=== PATIENT | female | born 1965 | race Asian ===

== ENCOUNTER 2017-03-01 23:06 | Emergency (ER) | payer OTHER ==
--- NOTE | 2017-03-02 02:51 | Emergency Department Report ---
HPI - General Chief Complaint: Upper Respiratory Infection Time Seen by Provider: 03/02/17 02:42 - HPI HPI: Patient here reports that she had shortness of breath today but not now. She says she was coughing yellow phlegm. Denies any fever but reports runny nose. She says she ran out of her asthma medication to include Symbicort and albuterol. She said this happened 3 days ago. She is requesting a refill of these medication. She is also complaining the left knee pain which is chronic no new injury. Pain is 10 out of 10. Denies any numbness or tingling to extremities. Denies any chest pain or difficulty breathing. Pain is achy kidney and she did not take any medication. ED Past Medical Hx - Past Medical History Previous Medical History?: Yes Hx CVA: Yes (tia's) Hx Diabetes: Yes 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) Additional medical history: Anemia, A-fib, sinus problems - Surgical History Past Surgical History?: Yes Additional Surgical History: wisdom teeth removed - Family History Family history: hypertension - Social History Smoking Status: Never Smoker Substance Use Type: None - Medications Home Medications: Home Medications Medication Instructions Recorded Confirmed Last Taken Type Aspirin [Aspirin BABY CHEW TAB] 81 mg PO DAILY 06/19/13 03/30/15 04/12/14 08:00 History Albuterol Sulfate [Proventil HFA] 1 - 2 puff IH Q4H PRN #1 hfa.aer.ad 06/12/14 03/30/15 Unknown Rx traMADol PO Q6H PRN 03/30/15 03/30/15 Unknown History Albuterol Sulfate [Albuterol 0.63% 0.63 mg IH TID PRN 20 Days 03/31/15 Unknown Rx NEBS] Doxycycline [Vibramycin CAP] 100 mg PO Q12HR #14 capsule 03/31/15 Unknown Rx Ipratropium [Atrovent NEB] 0.5 mg IH Q6HRT 20 Days 03/31/15 Unknown Rx Permethrin 5% [Acticin 5% CREAM] 1 applicatio TP ONCE #3 tube 03/31/15 Unknown Rx methylPREDNISolone [Medrol Dose 0 mg PO QAM #1 pack 03/31/15 Unknown Rx Markos] Albuterol Sulfate [Proair 90 mcg IH Q4-6H PRN #1 aer.pow.ba 03/02/17 Unknown Rx Respiclick] Budesoni/Formotero 160-4.5(Nf) 2 puff IH BID #1 inha 03/02/17 Unknown Rx [Symbicort 160-4.5 (Nf)] Cetirizine HCl [ZyrTEC] 10 mg PO QDAY #14 capsule 03/02/17 Unknown Rx Fluticasone [Flonase] 1 spray NS QDAY #1 bottle 03/02/17 Unknown Rx Ibuprofen [Motrin 600 MG tab] 600 mg PO Q8H PRN #12 tablet 03/02/17 Unknown Rx ED Review of Systems ROS: Stated complaint: SOB/MED REFILL Other details as noted in HPI Comment: All other systems reviewed and negative Constitutional: denies: chills, fever ENT: congestion, other (runny nose). denies: ear pain, throat pain, dental pain , hearing loss Respiratory: cough, shortness of breath (episodic). denies: SOB with exertion, SOB at rest, stridor, wheezing Cardiovascular: denies: chest pain, palpitations, edema, syncope Gastrointestinal: denies: abdominal pain, nausea, vomiting Musculoskeletal: arthralgia. denies: back pain, joint swelling, myalgia Skin: denies: rash Neurological: denies: headache, weakness, numbness, paresthesias, confusion, abnormal gait, vertigo Physical Exam - Physical Exam Vital Signs: Vital Signs 03/01/17 23:24 Temperature 98.4 F Pulse Rate 80 Respiratory 20 Rate Blood Pressure 114/72 O2 Sat by Pulse 100 Oximetry General: This is a 51-year-old female well-nourished well-developed in no acute distress. Physical Exam: Head: Normocephalic atraumatic Mouth: Moist, no pharyngeal exudate or erythema. Uvula is midline and oral airway is patent. No facial swelling. No peritonsillar abscesses. Nose: Nasal mucosa pale and boggy. Clear Drainage. Maxillary and frontal sinuses nontender to palpate Neck: Supple, no C-spine tenderness, no tracheal deviation. Nontender to palpate. no adenopathy Ears: Bilateral TMs congested without erythema. Bilateral EAC without any redness swelling or drainage. Abdomen: Soft, nontender to palpate in all quadrants, normal bowel sounds in all quadrant and negative CVA tenderness bilaterally. Eyes: Bilateral pupils equal and reactive to light, bilateral EOM intact. Bilateral sclera and conjunctiva without injection. Normal accommodation. Lungs: Clear to auscultate bilaterally no rhonchi wheezes or rales. Normal work of breathing. No chest wall tenderness. extremity; No CCE. +2 pulses. No neurovascular compromise. Bilateral knees without any crepitus or effusion. Nontender to palpate without any erythema or swelling. Good color, movement, temperature and sensation to all extremities. Capillary refill is less than 3 seconds. No laceration, abrasion or contusion to extremities. Joint deformity and +5/5 movement in all extremities. Patient with full range of motion to all extremities. She is able to flex and extend her knees without any difficulties. Cardiovascular: S1-S2, regular rate rhythm. No murmurs. Skin: clean Dry and intact no rash no lesions Psych: Normal mood and behavior ED Course Vital Signs 03/01/17 23:24 Temperature 98.4 F Pulse Rate 80 Respiratory 20 Rate Blood Pressure 114/72 O2 Sat by Pulse 100 Oximetry - Reevaluation(s) Reevaluation #1: 03/02/17 04:03 Patient remained stable throughout ED stay ED Medical Decision Making - Medical Decision Making ED course: Patient here complaining in of left knee pain which is chronic and new injury. She is also requesting in refill on her asthma medication. Patient lungs are clear and she has no anomaly to her left knee. Patient with arthralgia of left knee which is chronic and asthma requesting medication refill. Patient discharged home in stable condition with prescription for Motrin, Symbicort , Zyrtec, Flonase and albuterol HFA. She goes to the [facility] for primary care so I told her she needs to follow-up at [facility]. Critical care attestation.: If time is entered above; I have spent that time in minutes in the direct care of this critically ill patient, excluding procedure time. ED Disposition Clinical Impression: Encounter for medication refill, Arthralgia of left knee Allergic rhinitis due to allergen Qualifiers: Chronicity: chronic Allergic rhinitis trigger: pollen Allergic rhinitis seasonality: unspecified seasonality Qualified Code(s): J30.1 - Allergic rhinitis due to pollen Disposition: - TO HOME OR SELFCARE Is pt being admited?: No Does the pt Need Aspirin: No Condition: Stable Instructions: Arthralgia (ED), Asthma (ED), Chronic Obstructive Pulmonary Disease (ED), Knee Pain (ED), Knee Exercises (GEN), Allergic Rhinitis (ED) Additional Instructions: Please follow up with [facility] on Sunday for management of COPD/asthma and chronic knee pain Take medication as prescribed. Will need to follow-up with your primary care physician at [facility] for further refills of medication. Prescriptions: Albuterol Sulfate [Proair Respiclick] 90 mcg IH Q4-6H PRN #1 aer.pow.ba PRN Reason: cough and wheezing Budesoni/Formotero 160-4.5(Nf) [Symbicort 160-4.5 (Nf)] 2 puff IH BID #1 inha Cetirizine HCl [ZyrTEC] 10 mg PO QDAY #14 capsule Fluticasone [Flonase] 1 spray NS QDAY #1 bottle Ibuprofen [Motrin 600 MG tab] 600 mg PO Q8H PRN #12 tablet PRN Reason: Pain Referrals: PRIMARY CARE,MD [Primary Care Provider] - 3-5 Days [facility] [Other] - 3-5 Days (Please in the morning to schedule an appointment for follow-up visit chronic medical problems.) Forms: Work/School Release Form(ED)
[2017-03-02 06:26] VITALS: BP 99/69
== END 2017-03-02 06:00 | disposition home or self-care (01) ==
LOC: ED 23:06
DX: M25.562 Pain in left knee (principal); J30.1 Allergic rhinitis due to pollen; Z86.73 Personal history of transient ischemic attack (TIA), and cerebral infarction without residual deficits; J44.9 Chronic obstructive pulmonary disease, unspecified; D64.9 Anemia, unspecified; Z79.82 Long term (current) use of aspirin; Z88.0 Allergy status to penicillin; Z88.2 Allergy status to sulfonamides; Z91.018 Allergy to other foods; Z91.011 Allergy to milk products
CPT/HCPCS: 99282

== ENCOUNTER 2017-03-13 23:02 | Emergency (ER) | payer OTHER ==
[2017-03-14] MEDS ORDERED: PEPCID PO ONE (05:00)
[2017-03-14] MEDS ORDERED: BENADRYL PO ONE (05:00)
[2017-03-14] MEDS ORDERED: DECADRON IM ONE (05:00)
--- NOTE | 2017-03-14 07:16 | Emergency Department Report ---
ED Rash HPI - HPI Chief Complaint: Skin Rash Stated Complaint: RASH Duration: 4 Days Location: Neck, Chest, Back, Abdomen, Upper Extremities, Lower Extremities Suspected Cause: Unknown Rash Symptoms: Yes Itching, No Facial Swelling, No Tongue/Oral Swelling, No Breathing Difficulties, No Choking Sensation, No Wheezing/Dyspnea, No Peeling, No Blistering, No Fever, No Lightheaded, No Malaise, No Myalgias Severity: mild Other History: 51 year old female presents to ED with insect bites and pruritis x3-4 days. patient is stable,neurologically intact and in no acute distress. patient denies trouble breathing, SOB, wheezing, facial swelling. ED Review of Systems ROS: Stated complaint: RASH Other details as noted in HPI Constitutional: denies: chills, fever Eyes: denies: eye pain, eye discharge, vision change ENT: denies: ear pain, throat pain Respiratory: denies: cough, shortness of breath, wheezing Cardiovascular: denies: chest pain, palpitations Endocrine: no symptoms reported Gastrointestinal: denies: abdominal pain, nausea, diarrhea Genitourinary: denies: urgency, dysuria, discharge Musculoskeletal: denies: back pain, joint swelling, arthralgia Skin: rash, pruritus. denies: lesions Neurological: denies: headache, weakness, paresthesias Psychiatric: denies: anxiety, depression Hematological/Lymphatic: denies: easy bleeding, easy bruising ED Past Medical Hx - Past Medical History Previous Medical History?: Yes Hx CVA: Yes (tia's) Hx Diabetes: Yes 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) Additional medical history: Anemia, A-fib, sinus problems - Surgical History Past Surgical History?: Yes Additional Surgical History: wisdom teeth removed - Social History Smoking Status: Never Smoker Substance Use Type: None - Medications Home Medications: Home Medications Medication Instructions Recorded Confirmed Last Taken Type Aspirin [Aspirin BABY CHEW TAB] 81 mg PO DAILY 06/19/13 03/30/15 04/12/14 08:00 History Albuterol Sulfate [Proventil HFA] 1 - 2 puff IH Q4H PRN #1 hfa.aer.ad 06/12/14 03/30/15 Unknown Rx traMADol PO Q6H PRN 03/30/15 03/30/15 Unknown History Albuterol Sulfate [Albuterol 0.63% 0.63 mg IH TID PRN 20 Days 03/31/15 Unknown Rx NEBS] Doxycycline [Vibramycin CAP] 100 mg PO Q12HR #14 capsule 03/31/15 Unknown Rx Ipratropium [Atrovent NEB] 0.5 mg IH Q6HRT 20 Days 03/31/15 Unknown Rx Permethrin 5% [Acticin 5% CREAM] 1 applicatio TP ONCE #3 tube 03/31/15 Unknown Rx methylPREDNISolone [Medrol Dose 0 mg PO QAM #1 pack 03/31/15 Unknown Rx Markos] Albuterol Sulfate [Proair 90 mcg IH Q4-6H PRN #1 aer.pow.ba 03/02/17 Unknown Rx Respiclick] Budesoni/Formotero 160-4.5(Nf) 2 puff IH BID #1 inha 03/02/17 Unknown Rx [Symbicort 160-4.5 (Nf)] Cetirizine HCl [ZyrTEC] 10 mg PO QDAY #14 capsule 03/02/17 Unknown Rx Fluticasone [Flonase] 1 spray NS QDAY #1 bottle 03/02/17 Unknown Rx Ibuprofen [Motrin 600 MG tab] 600 mg PO Q8H PRN #12 tablet 03/02/17 Unknown Rx Hydroxyzine HCl 25 mg PO BID #14 tablet 03/14/17 Unknown Rx Triamcinolone 0.1% [Kenalog 0.1% 1 applic TP TID #1 tube 03/14/17 Unknown Rx CREAM] Rash Exam - Exam General: Vital signs noted. No distress. Alert and acting appropriately. HEENT: No Periorbital Edema, No Conjuctival Injection, No Chemosis, No Perioral Edema, No Tongue Edema, No Uvular Edema, No Compromised Airway, No Drooling Lungs: Yes Good Air Exchange (Normal Breath Sounds), No Wheezes, No Ronchi, No Stridor, No Cough, No Labored Respirations, No Retractions, No Use of Accessory Muscles, No Other Abnormal Lung Sounds Heart: Yes Regular, No Murmur Skin: Yes Urticarial Rash (generalized rash consistent with ants/mosquito bites) , No Maculopapular Rash, No Morbilliform rash, No Bulla(e), No Excoriations, No Weeping, No Tenderness, No Erythema, No Edema, No Encrustations, No Other Other: Positive: Abdomen Normal, Neurologic Normal, Musculoskeletal Normal ED Course Vital Signs 03/13/17 23:20 Temperature 97.8 F Pulse Rate 68 Respiratory 20 Rate Blood Pressure 101/60 [Right] O2 Sat by Pulse 100 Oximetry ED Medical Decision Making - Medical Decision Making 51 year old female presents to ED with rash consistent with ants or mosquito bites all over body and generalized pruritis. patient is stable,neurologically intact and in no acute distress. patient has decreased pruritis upon discharge after medications administered during ED visit. Critical care attestation.: If time is entered above; I have spent that time in minutes in the direct care of this critically ill patient, excluding procedure time. ED Disposition Clinical Impression: Contact dermatitis Qualifiers: Contact dermatitis type: unspecified Contact dermatitis trigger: unspecified trigger Qualified Code(s): L25.9 - Unspecified contact dermatitis, unspecified cause Disposition: DC-01 TO HOME OR SELFCARE Is pt being admited?: No Does the pt Need Aspirin: No Condition: Stable Instructions: Contact Dermatitis (ED) Additional Instructions: Return to ED if symptoms worsen. Prescriptions: Hydroxyzine HCl 25 mg PO BID #14 tablet Triamcinolone 0.1% [Kenalog 0.1% CREAM] 1 applic TP TID #1 tube Referrals: PRIMARY CARE, [Primary Care Provider] - 3-5 Days
[2017-03-14 07:22] VITALS: BP 109/72
== END 2017-03-14 07:21 | disposition home or self-care (01) ==
LOC: ED 23:02
DX: S80.862A Insect bite (nonvenomous), left lower leg, initial encounter (principal); S80.861A Insect bite (nonvenomous), right lower leg, initial encounter; J43.9 Emphysema, unspecified; D64.9 Anemia, unspecified; L25.8 Unspecified contact dermatitis due to other agents; Z79.82 Long term (current) use of aspirin; Z86.73 Personal history of transient ischemic attack (TIA), and cerebral infarction without residual deficits; W57.XXXA Bitten or stung by nonvenomous insect and other nonvenomous arthropods, initial encounter; Y93.89 Activity, other specified; Y99.8 Other external cause status; Y92.89 Other specified places as the place of occurrence of the external cause; Z88.0 Allergy status to penicillin; Z88.2 Allergy status to sulfonamides; Z91.018 Allergy to other foods; Z91.011 Allergy to milk products
CPT/HCPCS: 96372; 99282; J1100

== ENCOUNTER 2017-03-14 22:51 | Emergency (ER) | payer OTHER ==
--- NOTE | 2017-03-15 08:00 | Emergency Department Report ---
ED Rash HPI - HPI Chief Complaint: Skin Rash Stated Complaint: RASH ON OVER BODY Time Seen by Provider: 03/15/17 07:44 Duration: 3 Days Location: Other (face but diff rash on hands and arms) Suspected Cause: Animal, Other (a/c face rash) Rash Symptoms: No Itching, No Facial Swelling, No Tongue/Oral Swelling, No Breathing Difficulties, No Choking Sensation, No Wheezing/Dyspnea, No Peeling, No Blistering, No Fever, No Lightheaded, No Malaise, No Myalgias Severity: mild ED Review of Systems ROS: Stated complaint: RASH ON OVER BODY Other details as noted in HPI Comment: All other systems reviewed and negative Constitutional: no symptoms reported, see HPI. denies: chills Eyes: as per HPI. denies: eye pain ENT: as per HPI. denies: ear pain, throat pain Respiratory: no symptoms reported, see HPI. denies: cough, orthopnea Cardiovascular: as per HPI. denies: chest pain, palpitations, dyspnea on exertion, orthopnea Endocrine: no symptoms reported, see HPI. denies: excessive sweating, flushing Gastrointestinal: as per HPI. denies: abdominal pain, nausea, vomiting Genitourinary: as per HPI. denies: urgency, dysuria Musculoskeletal: as per HPI. denies: back pain Skin: as per HPI. denies: rash, lesions Neurological: as per HPI. denies: headache, weakness Psychiatric: as per HPI. denies: anxiety, depression Hematological/Lymphatic: as per HPI. denies: easy bleeding ED Past Medical Hx - Past Medical History Previous Medical History?: Yes Hx CVA: Yes (tia's) Hx Diabetes: Yes 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) Additional medical history: Anemia, A-fib, sinus problems - Surgical History Past Surgical History?: Yes Additional Surgical History: wisdom teeth removed - Family History Family history: no significant (ON ASA, ALBUTEROL, ATROVENT, SYMBICORT, FLONASE) - Social History Smoking Status: Never Smoker Substance Use Type: None - Medications Home Medications: Home Medications Medication Instructions Recorded Confirmed Last Taken Type Aspirin [Aspirin BABY CHEW TAB] 81 mg PO DAILY 06/19/13 03/30/15 04/12/14 08:00 History Albuterol Sulfate [Proventil HFA] 1 - 2 puff IH Q4H PRN #1 hfa.aer.ad 06/12/14 03/30/15 Unknown Rx traMADol PO Q6H PRN 03/30/15 03/30/15 Unknown History Albuterol Sulfate [Albuterol 0.63% 0.63 mg IH TID PRN 20 Days 03/31/15 Unknown Rx NEBS] Doxycycline [Vibramycin CAP] 100 mg PO Q12HR #14 capsule 03/31/15 Unknown Rx Ipratropium [Atrovent NEB] 0.5 mg IH Q6HRT 20 Days 03/31/15 Unknown Rx Permethrin 5% [Acticin 5% CREAM] 1 applicatio TP ONCE #3 tube 03/31/15 Unknown Rx methylPREDNISolone [Medrol Dose 0 mg PO QAM #1 pack 03/31/15 Unknown Rx Markos] Albuterol Sulfate [Proair 90 mcg IH Q4-6H PRN #1 aer.pow.ba 03/02/17 Unknown Rx Respiclick] Budesoni/Formotero 160-4.5(Nf) 2 puff IH BID #1 inha 03/02/17 Unknown Rx [Symbicort 160-4.5 (Nf)] Cetirizine HCl [ZyrTEC] 10 mg PO QDAY #14 capsule 03/02/17 Unknown Rx Fluticasone [Flonase] 1 spray NS QDAY #1 bottle 03/02/17 Unknown Rx Ibuprofen [Motrin 600 MG tab] 600 mg PO Q8H PRN #12 tablet 03/02/17 Unknown Rx Hydroxyzine HCl 25 mg PO BID #14 tablet 03/14/17 Unknown Rx Triamcinolone 0.1% [Kenalog 0.1% 1 applic TP TID #1 tube 03/14/17 Unknown Rx CREAM] Permethrin [Elimite] 60 gm TP ONCE #1 tube 03/15/17 Unknown Rx Rash Exam - Exam General: Vital signs noted. No distress. Alert and acting appropriately. HEENT: No Periorbital Edema, No Conjuctival Injection, No Chemosis, No Perioral Edema, No Tongue Edema, No Uvular Edema, No Compromised Airway, No Drooling Lungs: Yes Good Air Exchange, No Wheezes, No Ronchi, No Stridor, No Cough, No Labored Respirations, No Retractions, No Use of Accessory Muscles, No Other Abnormal Lung Sounds Heart: Yes Regular, No Murmur Skin: Yes Other (DRY SCALEY PATCH L CHEEK AND FOREHEAD. UNCHANGED FROM LAST VISIT PT STATES. SHE WAS UNABLE TO BUSINESS [facility] [employer]. SHE HAS NEW RASH ON B HAND TO WRIST CONSISTENT W SCABIES. SHE STAYED 1 W WITH FRIEND. THESE HAND LESIONS ITCH AND AR RED. MEDS IMPORTANCE DISCUSSED W PT. ), No Urticarial Rash, No Maculopapular Rash, No Morbilliform rash, No Bulla(e), No Excoriations, No Weeping, No Tenderness, No Erythema, No Edema, No Encrustations Other: Positive: Abdomen Normal ED Course Vital Signs 03/15/17 03/15/17 00:12 05:08 Temperature 97.5 F L 97.6 F Pulse Rate 75 57 L Respiratory 18 18 Rate Blood Pressure 105/60 111/62 O2 Sat by Pulse 99 100 Oximetry - Reevaluation(s) Reevaluation #1: 03/15/17 vss nad no fever no oral lesions non ill appearing did not get rx filled from last visit. now w new rash on hands. see exam educated on dc poc ED Medical Decision Making - Medical Decision Making vss nad no fever non toxic non adherent chronic cont derm of face new scabies of hands Critical care attestation.: If time is entered above; I have spent that time in minutes in the direct care of this critically ill patient, excluding procedure time. ED Disposition Clinical Impression: Contact dermatitis, Scabies, Pruritic rash Disposition: DC-01 TO HOME OR SELFCARE Is pt being admited?: No Does the pt Need Aspirin: No Condition: Stable Instructions: Contact Dermatitis (ED), Scabies (ED), Acute Rash (ED) Additional Instructions: GET YOUR MEDS FROM PHARMACY AND USE ON YOUR FACE INSTRUCTED NEW MED ORDERED FOR TODAY CLEAN HOME AND BELONGINGS FOLLOW UP WITH PCP OR DERM Prescriptions: Permethrin [Elimite] 60 gm TP ONCE #1 tube Referrals: PRIMARY CAREMD [Primary Care Provider] - 3-5 Days RAMON MEZA MD [Staff Physician] - 3-5 Days Time of Disposition: 07:58
[2017-03-15 08:21] VITALS: BP 116/66
== END 2017-03-15 08:19 | disposition home or self-care (01) ==
LOC: ED 22:51
DX: L25.9 Unspecified contact dermatitis, unspecified cause (principal); B86 Scabies; R21 Rash and other nonspecific skin eruption; Z79.82 Long term (current) use of aspirin; Z86.73 Personal history of transient ischemic attack (TIA), and cerebral infarction without residual deficits; J43.9 Emphysema, unspecified; D64.9 Anemia, unspecified; Z80.0 Family history of malignant neoplasm of digestive organs; Z88.2 Allergy status to sulfonamides; Z91.011 Allergy to milk products; Z91.018 Allergy to other foods
CPT/HCPCS: 99282

== ENCOUNTER 2017-03-25 00:46 | Emergency (ER) | payer OTHER ==
[2017-03-25 02:31] LABS: Urine Drugs of Abuse Note Disclamer
[2017-03-25 02:43] LABS: Bilirubin,Urine NEG (Negative); Blood,Urine NEG (Negative); Ketones,Urine NEG (Negative); Leukocyte Esterase,Urine SM (Negative); Mucus,Urine 2+ /HPF; Nitrite,Urine NEG (Negative); Urobilinogen,Urine < 2.0 mg/dL (<2.0)
[2017-03-25 02:50] LABS: Basophils % (Auto) 0.1 % (0.0-1.8); Hematocrit 34.2 % (30.3-42.9); Hemoglobin 11.4 gm/dl (10.1-14.3); Mean Corpuscular HGB Conc 33 % (30-34); Mean Corpuscular Hemoglobin 30 pg (28-32); Mean Corpuscular Volume 90 fl (79-97); Platelet Count 200 K/mm3 (140-440); Red Blood Count 3.78 M/mm3 (3.65-5.03); Red Cell Distribution Width 14.4 % (13.2-15.2); White Blood Count 5.6 K/mm3 (4.5-11.0)
[2017-03-25 03:11] LABS: Anion Gap 18 mmol/L; BUN/Creatinine Ratio 18.57; Blood Urea Nitrogen 13 mg/dL (7-17); Calcium 8.8 mg/dL (8.4-10.2); Carbon Dioxide 24 mmol/L (22-30); Chloride 101.1 mmol/L (98-107); Glucose 102 mg/dL (65-100); Potassium 3.5 mmol/L (3.6-5.0); Sodium 140 mmol/L (137-145)
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
[2017-03-25 06:52] VITALS: BP 113/65
== END 2017-03-25 07:02 | disposition home or self-care (01) ==
LOC: ED 00:46
DX: R53.1 Weakness (principal); E11.9 Type 2 diabetes mellitus without complications; J44.9 Chronic obstructive pulmonary disease, unspecified
CPT/HCPCS: 36415; 80048; 80307; 81001; 85025; 99283; G0480; 80320

== ENCOUNTER 2017-04-05 04:33 | Emergency (ER) | payer OTHER ==
[2017-04-05 04:55] VITALS: BP 108/70
[2017-04-05 05:29] LABS: Basophils % (Auto) 0.2 % (0.0-1.8); Eosinophils % (Auto) 1.3 % (0.0-4.3); Hematocrit 35.2 % (30.3-42.9); Hemoglobin 11.5 gm/dl (10.1-14.3); Mean Corpuscular HGB Conc 33 % (30-34); Mean Corpuscular Hemoglobin 30 pg (28-32); Mean Corpuscular Volume 91 fl (79-97); Platelet Count 258 K/mm3 (140-440); Red Blood Count 3.88 M/mm3 (3.65-5.03); Red Cell Distribution Width 14.3 % (13.2-15.2); White Blood Count 5.8 K/mm3 (4.5-11.0)
[2017-04-05 05:43] LABS: Anion Gap 17 mmol/L; BUN/Creatinine Ratio 21.66; Blood Urea Nitrogen 13 mg/dL (7-17); Calcium 8.7 mg/dL (8.4-10.2); Carbon Dioxide 23 mmol/L (22-30); Chloride 104.1 mmol/L (98-107); Glucose 87 mg/dL (65-100); Potassium 4.4 mmol/L (3.6-5.0); Sodium 140 mmol/L (137-145)
== END 2017-04-05 08:20 | disposition left against medical advice (07) ==
LOC: ED 04:33
DX: R06.02 Shortness of breath (principal); Z53.21 Procedure and treatment not carried out due to patient leaving prior to being seen by health care provider
CPT/HCPCS: 36415; 80048; 84703; 85025; G0480; 80320

== ENCOUNTER 2017-04-07 02:18 | Emergency (ER) | payer OTHER ==
[2017-04-07 02:56] VITALS: BP 105/63
== END 2017-04-07 04:17 | disposition left against medical advice (07) ==
LOC: ED 02:18
DX: M79.642 Pain in left hand (principal); R06.02 Shortness of breath; R06.2 Wheezing; E11.9 Type 2 diabetes mellitus without complications; D64.9 Anemia, unspecified; I48.91 Unspecified atrial fibrillation; Z86.73 Personal history of transient ischemic attack (TIA), and cerebral infarction without residual deficits; Z88.2 Allergy status to sulfonamides; Z91.018 Allergy to other foods; Z88.0 Allergy status to penicillin; Z79.82 Long term (current) use of aspirin; W19.XXXA Unspecified fall, initial encounter; Y93.89 Activity, other specified; Y99.9 Unspecified external cause status; Y92.89 Other specified places as the place of occurrence of the external cause; Z53.21 Procedure and treatment not carried out due to patient leaving prior to being seen by health care provider

== ENCOUNTER 2017-04-08 22:42 | Emergency (ER) | payer OTHER ==
[2017-04-08 23:09] VITALS: BP 102/65
--- NOTE | 2017-04-17 00:17 | ED Elopement Review ---
ED Pt Elopement review - Call Back decision Pt Call Back Decision: Pt to F/U with PMD
== END 2017-04-09 | disposition left against medical advice (07) ==
LOC: ED 22:42
DX: R07.9 Chest pain, unspecified (principal); Z53.21 Procedure and treatment not carried out due to patient leaving prior to being seen by health care provider
CPT/HCPCS: 93005; 93010

== ENCOUNTER 2017-04-10 03:40 | Emergency (ER) | payer OTHER ==
[2017-04-10 04:20] VITALS: BP 105/72
[2017-04-10 06:38] LABS: Hematocrit 33.5 % (30.3-42.9); Hemoglobin 10.6 gm/dl (10.1-14.3); Mean Corpuscular HGB Conc 32 % (30-34); Mean Corpuscular Hemoglobin 29 pg (28-32); Mean Corpuscular Volume 93 fl (79-97); Platelet Count 183 K/mm3 (140-440); Red Blood Count 3.61 M/mm3 (3.65-5.03); Red Cell Distribution Width 14.5 % (13.2-15.2); White Blood Count 5.1 K/mm3 (4.5-11.0)
[2017-04-10 06:55] LABS: Anion Gap 16 mmol/L; BUN/Creatinine Ratio 23.33; Blood Urea Nitrogen 14 mg/dL (7-17); Calcium 8.2 mg/dL (8.4-10.2); Carbon Dioxide 23 mmol/L (22-30); Chloride 108.8 mmol/L (98-107); Glucose 113 mg/dL (65-100); Potassium 3.9 mmol/L (3.6-5.0); Sodium 144 mmol/L (137-145)
[2017-04-10 06:57] LABS: Creatine Kinase 149 units/L (30-135); Creatine Kinase MB 2.3 ng/mL (0.0-4.0)
[2017-04-10 08:42] LABS: Basophils % (Manual) 0 % (0.0-1.8); Blastocytes % (Manual) 0 %; Eosinophils % (Manual) 0 % (0.0-4.3)
[2017-04-10 08:43] LABS: Anisocytosis Few; Diff Status Complete
--- NOTE | 2017-04-10 10:30 | XRay Report ---
CHEST TWO VIEWS: 04/10/17 03:40:00 CLINICAL: Difficulty breathing. COMPARISON: 04/09/15 FINDINGS: Normal heart and pulmonary vasculature. The lungs are mildly hyperexpanded and clear. The bones and soft tissues are normal. IMPRESSION: Mild pulmonary hyperinflation and otherwise normal.
== END 2017-04-10 07:30 | disposition left against medical advice (07) ==
LOC: ED 03:40
DX: R06.2 Wheezing (principal); R53.1 Weakness; Z53.21 Procedure and treatment not carried out due to patient leaving prior to being seen by health care provider
CPT/HCPCS: 36415; 71020; 80048; 82140; 82550; 82553; 82805; 83735; 83880; 84484; 84703; 85007; 85025

== ENCOUNTER 2017-04-18 23:11 | Emergency (ER) | payer OTHER ==
[2017-04-18 23:19] VITALS: BP 102/66
== END 2017-04-19 00:05 | disposition left against medical advice (07) ==
LOC: ED 23:11
DX: R06.2 Wheezing (principal); R06.02 Shortness of breath; Z53.21 Procedure and treatment not carried out due to patient leaving prior to being seen by health care provider

== ENCOUNTER 2017-04-24 00:23 | Emergency (ER) | payer OTHER ==
[2017-04-24 00:35] VITALS: BP 104/64
== END 2017-04-24 09:45 | disposition left against medical advice (07) ==
LOC: ED 00:23
DX: R53.1 Weakness (principal); Z53.21 Procedure and treatment not carried out due to patient leaving prior to being seen by health care provider

== ENCOUNTER 2017-04-30 21:07 | Emergency (ER) | payer OTHER ==
[2017-04-30 23:00] VITALS: BP 122/75
== END 2017-05-01 | disposition left against medical advice (07) ==
LOC: ED 21:07
DX: R06.02 Shortness of breath (principal); Z53.21 Procedure and treatment not carried out due to patient leaving prior to being seen by health care provider

== ENCOUNTER 2017-05-04 16:58 | Emergency (ER) | payer OTHER | END 2017-05-04 17:50 | disposition left against medical advice (07) | LOC: ED 16:58 | DX: R06.02 Shortness of breath (principal); Z53.21 Procedure and treatment not carried out due to patient leaving prior to being seen by health care provider ==

== ENCOUNTER 2017-05-11 02:07 | Emergency (ER) | payer OTHER ==
[2017-05-11 02:42] VITALS: BP 104/61
== END 2017-05-11 02:45 | disposition left against medical advice (07) ==
LOC: ED 02:07
DX: R06.02 Shortness of breath (principal); Z53.21 Procedure and treatment not carried out due to patient leaving prior to being seen by health care provider

== ENCOUNTER 2017-05-17 23:10 | Emergency (ER) | payer OTHER ==
[2017-05-17 23:33] VITALS: BP 90/55
--- NOTE | 2017-05-18 02:19 | Emergency Department Report ---
Upper Respiratory HPI - HPI Chief Complaint: Upper Respiratory Infection Stated Complaint: SOB/WHEEZING/COUGH Time Seen by Provider: 05/18/17 01:46 Duration: 5 Days URI Symptoms: Rhinorrhea: No, Sore Throat: No, Ear Pain: No, Cough: Yes, Shortness of Breath: No, Sick Contacts: No, Unable to Take Fluids: No, Urine Output Abnormal: No, Listless Behavior: No - Home Meds and Allergies Home Medications: Home Medications Medication Instructions Recorded Confirmed Last Taken Aspirin [Aspirin BABY CHEW TAB] 81 mg PO DAILY 06/19/13 03/30/15 04/12/14 08:00 traMADol PO Q6H PRN 03/30/15 03/30/15 Unknown Previous Rx's Medication Instructions Recorded Last Taken Type Albuterol Sulfate [Proventil HFA] 1 - 2 puff IH Q4H PRN #1 hfa.aer.ad 06/12/14 Unknown Rx Albuterol Sulfate [Albuterol 0.63% 0.63 mg IH TID PRN 20 Days 03/31/15 Unknown Rx NEBS] Doxycycline [Vibramycin CAP] 100 mg PO Q12HR #14 capsule 03/31/15 Unknown Rx Ipratropium [Atrovent NEB] 0.5 mg IH Q6HRT 20 Days 03/31/15 Unknown Rx Permethrin 5% [Acticin 5% CREAM] 1 applicatio TP ONCE #3 tube 03/31/15 Unknown Rx methylPREDNISolone [Medrol Dose 0 mg PO QAM #1 pack 03/31/15 Unknown Rx Markos] Cetirizine HCl [ZyrTEC] 10 mg PO QDAY #14 capsule 03/02/17 Unknown Rx Fluticasone [Flonase] 1 spray NS QDAY #1 bottle 03/02/17 Unknown Rx Hydroxyzine HCl 25 mg PO BID #14 tablet 03/14/17 Unknown Rx Triamcinolone 0.1% [Kenalog 0.1% 1 applic TP TID #1 tube 03/14/17 Unknown Rx CREAM] Permethrin [Elimite] 60 gm TP ONCE #1 tube 03/15/17 Unknown Rx Albuterol Sulfate [Proair 90 mcg IH Q4-6H PRN #1 aer.pow.ba 05/18/17 Unknown Rx Respiclick] Budesoni/Formotero 160-4.5(Nf) 2 puff IH BID #1 inha 05/18/17 Unknown Rx [Symbicort 160-4.5 (Nf)] Ibuprofen [Motrin 600 MG tab] 600 mg PO Q8H PRN #12 tablet 05/18/17 Unknown Rx Allergies/Adverse Reactions: Allergies Allergy/AdvReac Type Severity Reaction Status Date / Time milk Allergy Swelling Verified 12/31/14 07:57 Penicillins Allergy Itching Verified 12/31/14 07:57 strawberry [[place]] Allergy Rash Verified 12/31/14 07:57 Sulfa (Sulfonamide Allergy Itching Verified 12/31/14 07:57 Antibiotics) ED Review of Systems ROS: Stated complaint: SOB/WHEEZING/COUGH Other details as noted in HPI Constitutional: denies: chills, fever Eyes: denies: eye pain, eye discharge, vision change ENT: congestion, other (dental pain ) Respiratory: cough, shortness of breath, wheezing Cardiovascular: as per HPI Endocrine: no symptoms reported Gastrointestinal: denies: abdominal pain, nausea, diarrhea Genitourinary: denies: urgency, dysuria, discharge Musculoskeletal: denies: back pain, joint swelling, arthralgia Skin: denies: rash, lesions Neurological: denies: headache, weakness, paresthesias Psychiatric: denies: anxiety, depression Hematological/Lymphatic: denies: easy bleeding, easy bruising ED Past Medical Hx - Past Medical History Previous Medical History?: Yes Hx CVA: Yes (tia's) Hx Diabetes: Yes Hx Psychiatric Treatment: Yes Hx Asthma: Yes 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) Additional medical history: Anemia, A-fib, sinus problems - Surgical History Past Surgical History?: Yes Additional Surgical History: wisdom teeth removed - Social History Smoking Status: Never Smoker Substance Use Type: None - Medications Home Medications: Home Medications Medication Instructions Recorded Confirmed Last Taken Type Aspirin [Aspirin BABY CHEW TAB] 81 mg PO DAILY 06/19/13 03/30/15 04/12/14 08:00 History Albuterol Sulfate [Proventil HFA] 1 - 2 puff IH Q4H PRN #1 hfa.aer.ad 06/12/14 03/30/15 Unknown Rx traMADol PO Q6H PRN 03/30/15 03/30/15 Unknown History Albuterol Sulfate [Albuterol 0.63% 0.63 mg IH TID PRN 20 Days 03/31/15 Unknown Rx NEBS] Doxycycline [Vibramycin CAP] 100 mg PO Q12HR #14 capsule 03/31/15 Unknown Rx Ipratropium [Atrovent NEB] 0.5 mg IH Q6HRT 20 Days 03/31/15 Unknown Rx Permethrin 5% [Acticin 5% CREAM] 1 applicatio TP ONCE #3 tube 03/31/15 Unknown Rx methylPREDNISolone [Medrol Dose 0 mg PO QAM #1 pack 03/31/15 Unknown Rx Markos] Cetirizine HCl [ZyrTEC] 10 mg PO QDAY #14 capsule 03/02/17 Unknown Rx Fluticasone [Flonase] 1 spray NS QDAY #1 bottle 03/02/17 Unknown Rx Hydroxyzine HCl 25 mg PO BID #14 tablet 03/14/17 Unknown Rx Triamcinolone 0.1% [Kenalog 0.1% 1 applic TP TID #1 tube 03/14/17 Unknown Rx CREAM] Permethrin [Elimite] 60 gm TP ONCE #1 tube 03/15/17 Unknown Rx Albuterol Sulfate [Proair 90 mcg IH Q4-6H PRN #1 aer.pow.ba 05/18/17 Unknown Rx Respiclick] Budesoni/Formotero 160-4.5(Nf) 2 puff IH BID #1 inha 05/18/17 Unknown Rx [Symbicort 160-4.5 (Nf)] Ibuprofen [Motrin 600 MG tab] 600 mg PO Q8H PRN #12 tablet 05/18/17 Unknown Rx ED Bronchiolitis Physical Exam - Exam General: Vital signs noted. No distress. Alert and acting appropriately. HEENT: Yes Pharyngeal Erythema (mild ), No Conjuctival Injection, No Dry Mucous Membranes, No Rhinorrhea Ear: Neither TM Bulge, Neither TM Erythema, Neither EAC Discharge Neck: No Adenopathy, No Rigidity Lungs: Yes Clear Lung Sounds, Yes Good Air Exchange, No Wheezes, No Stridor, No Cough, No Nasal Flaring, No Retractions, No Use of Accessory Muscles Heart: Yes Regular, No Murmur Abdomen: Yes Normal Bowel Sounds, No Tenderness, No Peritoneal Signs Skin: No Rash, No Eczema Neurologic: Alert and oriented, no deficits. Musculoskeletal: Unremarkable. ED Bronchiolitis Tests - Testing Testing: CXR: Normal/Negative ED Physical Exam - General Limitations: No Limitations General appearance: alert, in no apparent distress - Head Head exam: Present: atraumatic, normocephalic - Eye Eye exam: Present: normal appearance, PERRL, EOMI Pupils: Present: normal accommodation - ENT ENT exam: Present: mucous membranes moist, TM's normal bilaterally, normal external ear exam - Expanded ENT Exam Expanded Teeth exam: Present: dental caries (#10 mild gum erythema no focal abscess ), dental tenderness # Throat exam: Positive: normal inspection - Neck Neck exam: Present: normal inspection, full ROM. Absent: tenderness, lymphadenopathy, thyromegaly - Respiratory Respiratory exam: Present: normal lung sounds bilaterally, chest wall tenderness. Absent: respiratory distress, wheezes, rales, rhonchi, stridor, accessory muscle use, decreased breath sounds, prolonged expiratory - Cardiovascular Cardiovascular Exam: Present: regular rate, normal rhythm. Absent: systolic murmur, diastolic murmur, rubs, gallop - GI/Abdominal GI/Abdominal exam: Present: soft, normal bowel sounds - Rectal Rectal exam: Present: deferred - Extremities Exam Extremities exam: Present: normal inspection, full ROM, normal capillary refill. Absent: tenderness, pedal edema, joint swelling, calf tenderness - Back Exam Back exam: Present: normal inspection, full ROM. Absent: tenderness, CVA tenderness (R), CVA tenderness (L), muscle spasm, paraspinal tenderness, vertebral tenderness, rash noted - Neurological Exam Neurological exam: Present: alert, oriented X3, normal gait, reflexes normal - Psychiatric Psychiatric exam: Present: normal affect, normal mood - Skin Skin exam: Present: warm, dry, intact, normal color. Absent: rash ED Course Vital Signs 05/17/17 23:30 Temperature 97.7 F Pulse Rate 77 Respiratory 20 Rate Blood Pressure 90/55 O2 Sat by Pulse 100 Oximetry ED Medical Decision Making - Medical Decision Making pt is a 51 y/o aaf with hx of COPD and Asthma, who presents for cough wheezing and sob x 5 days pt advises out of symbicort inhaler, pt states that she is tx[place] d at [place] facility but has been unable to get appointment pt denies cp, sob, no dizziness no lightheadedness no headache no wheezing at this time, symptoms are intermittent usuall relieved by daily symbicort inhaler, with albuteral used prn , pt has secondary complaint of dental pain @ # 10 loose and painful. pain is 4/ 10 aching intermittent exacerbated by hot and cold stimuli, pain is relieved by tramdol prn po. pt has not seen dentist as [place] [facility] is "backed up" exam: lungs clear no wheezing at thist time. pt appears well nad, no garcia pt ambulated ed from room and return with no wheezing no sob no dizziness no lightheadedness no cp, will refill medications as prescribed, nsaid for toothach,e pt will follow up with [facility] or [place] at soonest apointment for dental carries pt verbalized agreement and understanding of same. Critical care attestation.: If time is entered above; I have spent that time in minutes in the direct care of this critically ill patient, excluding procedure time. ED Disposition Clinical Impression: Dental caries, Medication refill URI (upper respiratory infection) Qualifiers: URI type: acute nasopharyngitis (common cold) Qualified Code(s): J00 - Acute nasopharyngitis [common cold] Disposition: TO HOME OR SELFCARE Is pt being admited?: No Does the pt Need Aspirin: No Condition: Good Instructions: Dental Caries (ED) Additional Instructions: Follow up with [place] doctor bakari for copd/asthma medications and management, follow up with [place] [facility] for dental carries Prescriptions: Albuterol Sulfate [Proair Respiclick] 90 mcg IH Q4-6H PRN #1 aer.pow.ba PRN Reason: cough and wheezing Budesoni/Formotero 160-4.5(Nf) [Symbicort 160-4.5 (Nf)] 2 puff IH BID #1 inha Ibuprofen [Motrin 600 MG tab] 600 mg PO Q8H PRN #12 tablet PRN Reason: Pain Referrals: [place] [facility] [Other] - 3-5 Days Forms: Work/School Release Form(ED) Time of Disposition: 02:29
--- NOTE | 2017-05-18 08:56 | XRay Report ---
XRAY CHEST TWO VIEWS: 05/17/17 23:10:00 CLINICAL: Cough and shortness of breath. COMPARISON: 04/10/17 FINDINGS: Normal heart and pulmonary vasculature. The lungs are hyperexpanded and hyperlucent. No airspace disease or pleural effusion.The bones and soft tissues are normal. IMPRESSION: COPD and no acute cardiopulmonary process.
== END 2017-05-18 03:00 | disposition home or self-care (01) ==
LOC: ED 23:10
DX: J00 Acute nasopharyngitis [common cold] (principal); K02.9 Dental caries, unspecified; J45.909 Unspecified asthma, uncomplicated; J44.9 Chronic obstructive pulmonary disease, unspecified
CPT/HCPCS: 71020

== ENCOUNTER 2017-05-25 19:06 | Emergency (ER) | payer OTHER | END 2017-05-25 20:32 | disposition left against medical advice (07) | LOC: ED 19:06 | DX: R06.02 Shortness of breath (principal); Z53.21 Procedure and treatment not carried out due to patient leaving prior to being seen by health care provider ==

== ENCOUNTER 2017-05-26 19:28 | Emergency (ER) | payer OTHER ==
[2017-05-26 19:40] VITALS: BP 93/63
== END 2017-05-26 23:05 | disposition left against medical advice (07) ==
LOC: ED 19:28
DX: R51 Headache (principal); R06.02 Shortness of breath; Z53.21 Procedure and treatment not carried out due to patient leaving prior to being seen by health care provider

== ENCOUNTER 2017-05-28 23:29 | Emergency (ER) | payer OTHER ==
[2017-05-29 11:46] VITALS: BP 93/54
== END 2017-05-29 04:39 | disposition left against medical advice (07) ==
LOC: ED 23:29
DX: M79.1 Myalgia (principal); Z53.21 Procedure and treatment not carried out due to patient leaving prior to being seen by health care provider

== ENCOUNTER → 2017-06-03 15:30 | Emergency (ER) | payer OTHER | END | disposition left against medical advice (07) | LOC: ED 15:30 | DX: K13.0 Diseases of lips (principal); Z53.21 Procedure and treatment not carried out due to patient leaving prior to being seen by health care provider ==

== ENCOUNTER 2017-06-07 02:17 | Emergency (ER) | payer OTHER ==
[2017-06-07 02:45] VITALS: BP 105/66
[2017-06-07 04:15] LABS: Hematocrit 36.8 % (30.3-42.9); Hemoglobin 12.1 gm/dl (10.1-14.3); Mean Corpuscular HGB Conc 33 % (30-34); Mean Corpuscular Hemoglobin 29 pg (28-32); Mean Corpuscular Volume 88 fl (79-97); Platelet Count 165 K/mm3 (140-440); Red Blood Count 4.18 M/mm3 (3.65-5.03); Red Cell Distribution Width 13.4 % (13.2-15.2); White Blood Count 4.1 K/mm3 (4.5-11.0)
[2017-06-07 04:28] LABS: Anion Gap 16 mmol/L; BUN/Creatinine Ratio 17; Blood Urea Nitrogen 10 mg/dL (7-17); Calcium 8.6 mg/dL (8.4-10.2); Carbon Dioxide 27 mmol/L (22-30); Chloride 104.2 mmol/L (98-107); Glucose 103 mg/dL (65-100); Potassium 3.8 mmol/L (3.6-5.0); Sodium 143 mmol/L (137-145)
[2017-06-07 05:56] LABS: Basophils % (Manual) 0 % (0.0-1.8); Blastocytes % (Manual) 0 %
[2017-06-07 05:57] LABS: Anisocytosis Few; Diff Status Complete; Ovalocytes Few
== END 2017-06-07 03:56 | disposition left against medical advice (07) ==
LOC: ED 02:17
DX: R07.9 Chest pain, unspecified (principal); Z53.21 Procedure and treatment not carried out due to patient leaving prior to being seen by health care provider
CPT/HCPCS: 36415; 80048; 84484; 85007; 85025; 93005; 93010

== ENCOUNTER 2017-06-11 01:50 | Emergency (ER) | payer OTHER ==
[2017-06-11 02:27] VITALS: BP 92/61
--- NOTE | 2017-06-11 05:25 | Emergency Department Report ---
- General Chief Complaint: Upper Respiratory Infection Stated Complaint: SORE LIPS Time Seen by Provider: 06/11/17 04:23 Source: patient Mode of arrival: Ambulatory Limitations: No Limitations - History of Present Illness Initial Comments: pt is a 51 y/o aaf with hx COPD tx with albuterol nad symbicort neb pt presents today request rx for nebulizer machine pt denies sob no wheezing no sob no garcia, pt will refill same and pt will follow up with primary care doctor at [place] tomorrow pt verbalized agreement and understanding of same - Related Data Home Medications Medication Instructions Recorded Confirmed Last Taken Aspirin [Aspirin BABY CHEW TAB] 81 mg PO DAILY 06/19/13 03/30/15 04/12/14 08:00 traMADol PO Q6H PRN 03/30/15 03/30/15 Unknown Previous Rx's Medication Instructions Recorded Last Taken Type Albuterol Sulfate [Proventil HFA] 1 - 2 puff IH Q4H PRN #1 hfa.aer.ad 06/12/14 Unknown Rx Albuterol Sulfate [Albuterol 0.63% 0.63 mg IH TID PRN 20 Days 03/31/15 Unknown Rx NEBS] Doxycycline [Vibramycin CAP] 100 mg PO Q12HR #14 capsule 03/31/15 Unknown Rx Ipratropium [Atrovent NEB] 0.5 mg IH Q6HRT 20 Days 03/31/15 Unknown Rx Permethrin 5% [Acticin 5% CREAM] 1 applicatio TP ONCE #3 tube 03/31/15 Unknown Rx methylPREDNISolone [Medrol Dose 0 mg PO QAM #1 pack 03/31/15 Unknown Rx Markos] Cetirizine HCl [ZyrTEC] 10 mg PO QDAY #14 capsule 03/02/17 Unknown Rx Fluticasone [Flonase] 1 spray NS QDAY #1 bottle 03/02/17 Unknown Rx Hydroxyzine HCl 25 mg PO BID #14 tablet 03/14/17 Unknown Rx Triamcinolone 0.1% [Kenalog 0.1% 1 applic TP TID #1 tube 03/14/17 Unknown Rx CREAM] Permethrin [Elimite] 60 gm TP ONCE #1 tube 03/15/17 Unknown Rx Albuterol Sulfate [Proair 90 mcg IH Q4-6H PRN #1 aer.pow.ba 05/18/17 Unknown Rx Respiclick] Budesoni/Formotero 160-4.5(Nf) 2 puff IH BID #1 inha 05/18/17 Unknown Rx [Symbicort 160-4.5 (Nf)] Ibuprofen Oral Liqd [Motrin Oral 600 mg PO TID PRN #1 bottle 05/18/17 Unknown Rx Liq 100 mg/5 ml] Ibuprofen [Motrin 600 MG tab] 600 mg PO Q8H PRN #12 tablet 05/18/17 Unknown Rx ALBUTEROL NEB's [Proventil 0.083% 2.5 mg IH QID PRN #25 each 06/11/17 Unknown Rx NEBS] Fluticasone [Flonase] 1 spray NS QDAY #1 bottle 06/11/17 Unknown Rx Loratadine 10 mg PO DAILY #30 tablet 06/11/17 Unknown Rx Nebulizer Accessories [Aeroneb Go] 1 each MC PRN #1 each 06/11/17 Unknown Rx Allergies Allergy/AdvReac Type Severity Reaction Status Date / Time milk Allergy Swelling Verified 12/31/14 07:57 Penicillins Allergy Itching Verified 12/31/14 07:57 strawberry [[place]] Allergy Rash Verified 12/31/14 07:57 Sulfa (Sulfonamide Allergy Itching Verified 12/31/14 07:57 Antibiotics) ED Review of Systems ROS: Stated complaint: SORE LIPS Other details as noted in HPI Constitutional: denies: chills, fever Eyes: denies: eye pain, eye discharge, vision change ENT: denies: ear pain, throat pain Respiratory: denies: cough, shortness of breath, wheezing Cardiovascular: denies: chest pain, palpitations Endocrine: no symptoms reported Gastrointestinal: denies: abdominal pain, nausea, diarrhea Genitourinary: denies: urgency, dysuria, discharge Musculoskeletal: denies: back pain, joint swelling, arthralgia Skin: denies: rash, lesions Neurological: denies: headache, weakness, paresthesias Psychiatric: denies: anxiety, depression Hematological/Lymphatic: denies: easy bleeding, easy bruising ED Past Medical Hx - Past Medical History Previous Medical History?: Yes Hx CVA: Yes (tia's) Hx Diabetes: Yes Hx Psychiatric Treatment: Yes Hx Asthma: Yes 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) Additional medical history: Anemia, A-fib, sinus problems - Surgical History Past Surgical History?: Yes Additional Surgical History: wisdom teeth removed - Social History Smoking Status: Never Smoker Substance Use Type: Alcohol - Medications Home Medications: Home Medications Medication Instructions Recorded Confirmed Last Taken Type Aspirin [Aspirin BABY CHEW TAB] 81 mg PO DAILY 06/19/13 03/30/15 04/12/14 08:00 History Albuterol Sulfate [Proventil HFA] 1 - 2 puff IH Q4H PRN #1 hfa.aer.ad 06/12/14 03/30/15 Unknown Rx traMADol PO Q6H PRN 03/30/15 03/30/15 Unknown History Albuterol Sulfate [Albuterol 0.63% 0.63 mg IH TID PRN 20 Days 03/31/15 Unknown Rx NEBS] Doxycycline [Vibramycin CAP] 100 mg PO Q12HR #14 capsule 03/31/15 Unknown Rx Ipratropium [Atrovent NEB] 0.5 mg IH Q6HRT 20 Days 03/31/15 Unknown Rx Permethrin 5% [Acticin 5% CREAM] 1 applicatio TP ONCE #3 tube 03/31/15 Unknown Rx methylPREDNISolone [Medrol Dose 0 mg PO QAM #1 pack 03/31/15 Unknown Rx Markos] Cetirizine HCl [ZyrTEC] 10 mg PO QDAY #14 capsule 03/02/17 Unknown Rx Fluticasone [Flonase] 1 spray NS QDAY #1 bottle 03/02/17 Unknown Rx Hydroxyzine HCl 25 mg PO BID #14 tablet 03/14/17 Unknown Rx Triamcinolone 0.1% [Kenalog 0.1% 1 applic TP TID #1 tube 03/14/17 Unknown Rx CREAM] Permethrin [Elimite] 60 gm TP ONCE #1 tube 03/15/17 Unknown Rx Albuterol Sulfate [Proair 90 mcg IH Q4-6H PRN #1 aer.pow.ba 05/18/17 Unknown Rx Respiclick] Budesoni/Formotero 160-4.5(Nf) 2 puff IH BID #1 inha 05/18/17 Unknown Rx [Symbicort 160-4.5 (Nf)] Ibuprofen Oral Liqd [Motrin Oral 600 mg PO TID PRN #1 bottle 05/18/17 Unknown Rx Liq 100 mg/5 ml] Ibuprofen [Motrin 600 MG tab] 600 mg PO Q8H PRN #12 tablet 05/18/17 Unknown Rx ALBUTEROL NEB's [Proventil 0.083% 2.5 mg IH QID PRN #25 each 06/11/17 Unknown Rx NEBS] Fluticasone [Flonase] 1 spray NS QDAY #1 bottle 06/11/17 Unknown Rx Loratadine 10 mg PO DAILY #30 tablet 06/11/17 Unknown Rx Nebulizer Accessories [Aeroneb Go] 1 each MC PRN #1 each 06/11/17 Unknown Rx ED Physical Exam - General Limitations: No Limitations General appearance: alert, in no apparent distress - Head Head exam: Present: atraumatic, normocephalic - Eye Eye exam: Present: normal appearance - ENT ENT exam: Present: mucous membranes moist - Neck Neck exam: Present: normal inspection - Respiratory Respiratory exam: Present: normal lung sounds bilaterally. Absent: respiratory distress, wheezes, chest wall tenderness - Cardiovascular Cardiovascular Exam: Present: regular rate, normal rhythm. Absent: systolic murmur, diastolic murmur, rubs, gallop - GI/Abdominal GI/Abdominal exam: Present: soft, normal bowel sounds - Rectal Rectal exam: Present: deferred - Extremities Exam Extremities exam: Present: normal inspection - Back Exam Back exam: Present: normal inspection - Neurological Exam Neurological exam: Present: alert, oriented X3 - Psychiatric Psychiatric exam: Present: normal affect, normal mood - Skin Skin exam: Present: warm, dry, intact, normal color. Absent: rash ED Course Vital Signs 06/11/17 02:25 Temperature 97.6 F Pulse Rate 76 Blood Pressure 92/61 O2 Sat by Pulse 99 Oximetry ED Medical Decision Making - Medical Decision Making pt is a 51 y/o aaf with hx COPD tx with albuterol nad symbicort neb pt presents today request rx for nebulizer machine pt denies sob no wheezing no sob no garcia, pt will refill same and pt will follow up with primary care doctor [place] tomorrow pt verbalized agreement and understanding of same Critical care attestation.: If time is entered above; I have spent that time in minutes in the direct care of this critically ill patient, excluding procedure time. ED Disposition Clinical Impression: Medication refill URI (upper respiratory infection) Qualifiers: URI type: acute nasopharyngitis (common cold) Qualified Code(s): J00 - Acute nasopharyngitis [common cold] Disposition: TO HOME OR SELFCARE Is pt being admited?: No Does the pt Need Aspirin: No Condition: Good Instructions: Upper Respiratory Infection in Children (ED) Prescriptions: ALBUTEROL NEB's [Proventil 0.083% NEBS] 2.5 mg IH QID PRN #25 each PRN Reason: wheezing Fluticasone [Flonase] 1 spray NS QDAY #1 bottle Loratadine 10 mg PO DAILY #30 tablet Nebulizer Accessories [Aeroneb Go] 1 each MC PRN #1 each Referrals: PRIMARY CARE,MD [Primary Care Provider] - 3-5 Days Forms: Work/School Release Form(ED) Time of Disposition: 05:30
== END 2017-06-11 05:35 | disposition home or self-care (01) ==
LOC: ED 01:50
DX: J00 Acute nasopharyngitis [common cold] (principal); Z79.82 Long term (current) use of aspirin; Z91.011 Allergy to milk products; Z88.2 Allergy status to sulfonamides; Z88.0 Allergy status to penicillin; Z86.73 Personal history of transient ischemic attack (TIA), and cerebral infarction without residual deficits; J45.909 Unspecified asthma, uncomplicated; J44.9 Chronic obstructive pulmonary disease, unspecified; E11.9 Type 2 diabetes mellitus without complications
CPT/HCPCS: 99282

== ENCOUNTER 2017-07-07 02:56 | Emergency (ER) | payer OTHER ==
[2017-07-07 03:26] VITALS: BP 114/66
== END 2017-07-07 08:55 | disposition left against medical advice (07) ==
LOC: ED 02:56
DX: Z53.21 Procedure and treatment not carried out due to patient leaving prior to being seen by health care provider (principal)

== ENCOUNTER 2017-10-24 20:47 | Emergency (ER) | payer OTHER ==
[2017-10-24] MEDS ORDERED: TYLENOL PO ONE (21:22)
[2017-10-24] MEDS ORDERED: TYLENOL ONE (21:22)
[2017-10-24 21:39] LABS: Basophils % (Auto) 0.3 % (0.0-1.8); Eosinophils # (Auto) 0.2 K/mm3 (0.0-0.4); Eosinophils % (Auto) 3.7 % (0.0-4.3); Hemoglobin 12.2 gm/dl (10.1-14.3); Lymphocytes # (Auto) 0.8 K/mm3 (1.2-5.4); Lymphocytes % (Auto) 19.4 % (13.4-35.0); Mean Corpuscular HGB Conc 32 % (30-34); Mean Corpuscular Hemoglobin 28 pg (28-32); Mean Corpuscular Volume 87 fl (79-97); Monocytes # (Auto) 0.4 K/mm3 (0.0-0.8); Monocytes % (Auto) 8.6 % (0.0-7.3); Platelet Count 172 K/mm3 (140-440); Red Blood Count 4.36 M/mm3 (3.65-5.03); Red Cell Distribution Width 13.8 % (13.2-15.2)
[2017-10-24 21:52] LABS: Bacteria,Urine 1+ /HPF (Negative); Bilirubin,Urine NEG (Negative); Blood,Urine SM (Negative); Color,Urine Yellow (Yellow); Mucus,Urine 1+ /HPF; Protein,Urine <15 mg/dL mg/dL (Negative); Urobilinogen,Urine < 2.0 mg/dL (<2.0)
[2017-10-24 22:03] LABS: BUN/Creatinine Ratio 23; Blood Urea Nitrogen 14 mg/dL (7-17); Calcium 8.6 mg/dL (8.4-10.2); Hemolysis Index 6
[2017-10-25] MEDS ORDERED: LEVAQUIN 750MG/150ML 750 MG/150 ML BAG IV ONE (02:36)
[2017-10-25] MEDS ORDERED: DUONEB *Not for PRN Use IH ONE (02:37)
[2017-10-25] MEDS ORDERED: KCL 20 MEQ in NACL 0.9% 250ML 250 ML IV ONE (03:00)
[2017-10-25] MEDS ORDERED: KCL 10MEQ/100ML 10 MEQ/100 ML BAG IV SCH (03:00)
[2017-10-25] MEDS ORDERED: NACL 0.9% 1000 ML 1,000 ML ONE (03:17)
--- NOTE | 2017-10-25 03:44 | XRay Report ---
FINAL REPORT EXAM: XR CHEST 1V AP HISTORY: cough TECHNIQUE: A portable upright view of the chest was obtained. FINDINGS: The lungs are hyperinflated. There are no acute infiltrates or congestion. Heart size is normal. There scarring in left lung base. Pleural fluid is not seen. The skeletal structures do not show any acute changes. IMPRESSION: Hyperinflation. No acute process in the chest.
--- NOTE | 2017-10-25 05:37 | Emergency Department Report ---
HPI - General Chief Complaint: Weakness Time Seen by Provider: 10/25/17 02:26 - HPI HPI: 51-year-old presents to the emergency department with multiple complaints. She says that over the past month she has been having both some numbness as well as pain to her left hand and her left foot. She has a history of COPD and asthma and says that she has been out of her inhalers, Ventolin and Symbicort, and has been having some intermittent shortness of breath and wheezing. She complains of some generalized and nonspecific weakness. She complains of some dysuria. The patient has been visiting family and traveled from [place], to [place], and finally back to [place]'s morning. She went to the [facility], where she usually gets her care and where she also works, but says that there was such a long wait she left and came here instead. She denies any chest pain , fever, swelling of the extremities. She has not taken anything for her symptoms prior to presentation. She said that she saw a physician in [place] regarding the hand and foot pain and was diagnosed with neuropathy. 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) Additional medical history: Anemia, A-fib, sinus problems - Surgical History Additional Surgical History: wisdom teeth removed - Social History Smoking Status: Never Smoker Substance Use Type: None - Medications Home Medications: Home Medications Medication Instructions Recorded Confirmed Last Taken Type Aspirin [Aspirin BABY CHEW TAB] 81 mg PO DAILY 06/19/13 03/30/15 04/12/14 08:00 History Albuterol Sulfate [Proventil HFA] 1 - 2 puff IH Q4H PRN #1 hfa.aer.ad 06/12/14 03/30/15 Unknown Rx traMADol PO Q6H PRN 03/30/15 03/30/15 Unknown History Albuterol Sulfate [Albuterol 0.63% 0.63 mg IH TID PRN 20 Days ml 03/31/15 Unknown Rx NEBS] Doxycycline [Vibramycin CAP] 100 mg PO Q12HR #14 capsule 03/31/15 Unknown Rx Ipratropium [Atrovent NEB] 0.5 mg IH Q6HRT 20 Days ml 03/31/15 Unknown Rx Permethrin 5% [Acticin 5% CREAM] 1 applicatio TP ONCE #3 tube 03/31/15 Unknown Rx methylPREDNISolone [Medrol Dose 0 mg PO QAM #1 pack 03/31/15 Unknown Rx Markos] Cetirizine HCl [ZyrTEC] 10 mg PO QDAY #14 capsule 03/02/17 Unknown Rx Fluticasone [Flonase] 1 spray NS QDAY #1 bottle 03/02/17 Unknown Rx Hydroxyzine HCl 25 mg PO BID #14 tablet 03/14/17 Unknown Rx Triamcinolone 0.1% [Kenalog 0.1% 1 applic TP TID #1 tube 03/14/17 Unknown Rx CREAM] Permethrin [Elimite] 60 gm TP ONCE #1 tube 03/15/17 Unknown Rx Albuterol Sulfate [Proair 90 mcg IH Q4-6H PRN #1 aer.pow.ba 05/18/17 Unknown Rx Respiclick] Ibuprofen Oral Liqd [Motrin Oral 600 mg PO TID PRN #1 bottle 05/18/17 Unknown Rx Liq 100 mg/5 ml] Ibuprofen [Motrin 600 MG tab] 600 mg PO Q8H PRN #12 tablet 05/18/17 Unknown Rx Fluticasone [Flonase] 1 spray NS QDAY #1 bottle 06/11/17 Unknown Rx Loratadine 10 mg PO DAILY #30 tablet 06/11/17 Unknown Rx Nebulizer Accessories [Aeroneb Go] 1 each PRN #1 each 06/11/17 Unknown Rx ALBUTEROL Inhaler [ProAir HFA 2 puff IH QID PRN #1 inhalation 10/25/17 Unknown Rx Inhaler] ALBUTEROL NEB's [Proventil 0.083% 2.5 mg IH QID PRN #25 each 10/25/17 Unknown Rx NEBS] Budesoni/Formotero 160-4.5(Nf) 2 puff IH BID #1 inha 10/25/17 Unknown Rx [Symbicort 160-4.5 (Nf)] Nitrofurantoin Monohyd/M-Cryst 100 mg PO BID #14 capsule 10/25/17 Unknown Rx [Macrobid 100 mg Capsule] ED Review of Systems ROS: Stated complaint: WEAKNESS Other details as noted in HPI Comment: All other systems reviewed and negative Constitutional: weakness. denies: fever Eyes: denies: eye pain, eye discharge, vision change ENT: denies: ear pain, throat pain Respiratory: shortness of breath, wheezing Cardiovascular: denies: chest pain, edema Gastrointestinal: denies: abdominal pain, nausea, diarrhea Genitourinary: denies: urgency, dysuria, discharge Musculoskeletal: arthralgia, myalgia. denies: back pain, joint swelling Skin: denies: rash, lesions Neurological: numbness, paresthesias Physical Exam - Physical Exam Vital Signs: Vital Signs 10/24/17 10/24/17 10/25/17 21:07 21:24 03:35 Temperature 97.4 F L Pulse Rate 70 Respiratory 20 18 Rate Blood Pressure 110/63 O2 Sat by Pulse 98 100 Oximetry 10/25/17 10/25/17 10/25/17 03:45 04:00 04:15 Temperature Pulse Rate 67 56 L 62 Respiratory 13 12 13 Rate Blood Pressure 112/71 108/64 108/64 O2 Sat by Pulse 100 100 100 Oximetry 10/25/17 10/25/17 10/25/17 04:31 04:45 05:00 Temperature Pulse Rate 65 66 68 Respiratory 16 12 15 Rate Blood Pressure 100/64 104/60 97/61 O2 Sat by Pulse 100 100 100 Oximetry ED Course Vital Signs 10/24/17 10/24/17 10/25/17 21:07 21:24 03:35 Temperature 97.4 F L Pulse Rate 70 Respiratory 20 18 Rate Blood Pressure 110/63 O2 Sat by Pulse 98 100 Oximetry 10/25/17 10/25/17 10/25/17 03:45 04:00 04:15 Temperature Pulse Rate 67 56 L 62 Respiratory 13 12 13 Rate Blood Pressure 112/71 108/64 108/64 O2 Sat by Pulse 100 100 100 Oximetry 10/25/17 10/25/17 10/25/17 04:31 04:45 05:00 Temperature Pulse Rate 65 66 68 Respiratory 16 12 15 Rate Blood Pressure 100/64 104/60 97/61 O2 Sat by Pulse 100 100 100 Oximetry ED Medical Decision Making - Lab Data Result diagrams: 10/24/17 21:31 10/24/17 21:31 - EKG Data -: EKG Interpreted by Me EKG shows normal: sinus rhythm, axis, intervals, QRS complexes, ST-T waves Rate: bradycardia (58 bpm) - EKG Data When compared to previous EKG there are: previous EKG unavailable Interpretation: other (sinus bradycardia at [address] elevation [place]) Critical care attestation.: If time is entered above; I have spent that time in minutes in the direct care of this critically ill patient, excluding procedure time. ED Disposition Clinical Impression: Medication refill, Left hand pain, Numbness of left hand, History of COPD UTI (urinary tract infection) Qualifiers: Urinary tract infection type: acute cystitis Hematuria presence: without hematuria Qualified Code(s): N30.00 - Acute cystitis without hematuria Disposition: TO HOME OR SELFCARE Is pt being admited?: No Condition: Stable Instructions: Urinary Tract Infection in Women (ED), Paresthesia (ED), Peripheral Neuropathy (ED) Additional Instructions: Please follow up with a primary care physician in the next few days. Return to the emergency Department with any worsening of your symptoms or any acute distress. Prescriptions: ALBUTEROL Inhaler [ProAir HFA Inhaler] 2 puff IH QID PRN #1 inhalation PRN Reason: Shortness Of Breath ALBUTEROL NEB's [Proventil 0.083% NEBS] 2.5 mg IH QID PRN #25 each PRN Reason: wheezing Budesoni/Formotero 160-4.5(Nf) [Symbicort 160-4.5 (Nf)] 2 puff IH BID #1 inha Nitrofurantoin Monohyd/M-Cryst [Macrobid 100 mg Capsule] 100 mg PO BID #14 capsule Referrals: GALEN TOWNSEND MD [Staff Physician] - 3-5 Days MELANIE VALENCIA MD [Staff Physician] - 3-5 Days CARMELITA GONGORA MD [Staff Physician] - 3-5 Days Time of Disposition: 05:45
[2017-10-25 06:24] VITALS: BP 91/61
== END 2017-10-25 07:18 | disposition home or self-care (01) ==
LOC: ED 20:47
DX: M79.642 Pain in left hand (principal); R20.0 Anesthesia of skin; J44.9 Chronic obstructive pulmonary disease, unspecified; Z86.73 Personal history of transient ischemic attack (TIA), and cerebral infarction without residual deficits; E11.9 Type 2 diabetes mellitus without complications; I10 Essential (primary) hypertension; D64.9 Anemia, unspecified; Z79.82 Long term (current) use of aspirin; Z88.0 Allergy status to penicillin; Z88.2 Allergy status to sulfonamides; Z91.011 Allergy to milk products
CPT/HCPCS: 36415; 71045; 80048; 81001; 83735; 84484; 85025; 93005; 93010; 94640; 96365; 99284; J1956; J3480; J7030; J7050

== ENCOUNTER 2017-10-26 23:43 | Emergency (ER) | payer OTHER ==
[2017-10-27 00:40] LABS: Basophils % (Auto) 0.3 % (0.0-1.8); Eosinophils # (Auto) 0.1 K/mm3 (0.0-0.4); Eosinophils % (Auto) 2.4 % (0.0-4.3); Hemoglobin 11.5 gm/dl (10.1-14.3); Lymphocytes # (Auto) 0.9 K/mm3 (1.2-5.4); Lymphocytes % (Auto) 17.4 % (13.4-35.0); Mean Corpuscular HGB Conc 32 % (30-34); Mean Corpuscular Hemoglobin 28 pg (28-32); Mean Corpuscular Volume 86 fl (79-97); Monocytes # (Auto) 0.3 K/mm3 (0.0-0.8); Monocytes % (Auto) 6.2 % (0.0-7.3); Platelet Count 166 K/mm3 (140-440); Red Blood Count 4.19 M/mm3 (3.65-5.03); Red Cell Distribution Width 14.2 % (13.2-15.2)
[2017-10-27 00:58] LABS: BUN/Creatinine Ratio 20; Blood Urea Nitrogen 14 mg/dL (7-17); Calcium 8.3 mg/dL (8.4-10.2); Hemolysis Index 4
--- NOTE | 2017-10-27 01:33 | XRay Report ---
FINAL REPORT PROCEDURE: XR CHEST 1V AP TECHNIQUE: Chest radiograph anteroposterior view. CPT 71934 HISTORY: Shortness of breath COMPARISON: 10/25/2017 FINDINGS: Heart: Normal. Mediastinum/Vessels: Normal. Lungs/Pleural space: Lungs are clear and expanded. There are no infiltrates, effusions or pneumothoraces.. Bony thorax: No acute osseous abnormality. Life support devices: None. IMPRESSION: No acute cardiopulmonary abnormality.
[2017-10-27] MEDS ORDERED: ATROVENT IH ONE (01:36)
[2017-10-27] MEDS ORDERED: PROVENTIL IH ONE (01:36)
--- NOTE | 2017-10-27 01:42 | Emergency Department Report ---
HPI - General Chief Complaint: Dyspnea/Respdistress Time Seen by Provider: 10/27/17 01:27 - HPI HPI: Room 3 The patient is a 51-year-old female presenting with a chief complaint of shortness of breath. The patient states again this evening she developed shortness of breath and wheezing. The patient states she's been having intermittent shortness of breath for the past 1.5 weeks secondary to not having her inhaler. Patient missed an occasional cough is productive of yellow sputum. Patient is to sweating but is uncertain if she's had a fever. The patient was seen here yesterday morning and states she felt better after medication was administered but her shortness of breath returned this evening. 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) Additional medical history: Anemia, A-fib, sinus problems - Surgical History Additional Surgical History: wisdom teeth removed - Family History Family history: no significant - Social History Smoking Status: Never Smoker Substance Use Type: None - Medications Home Medications: Home Medications Medication Instructions Recorded Confirmed Last Taken Type Aspirin [Aspirin BABY CHEW TAB] 81 mg PO DAILY 06/19/13 03/30/15 04/12/14 08:00 History Albuterol Sulfate [Proventil HFA] 1 - 2 puff IH Q4H PRN #1 hfa.aer.ad 06/12/14 03/30/15 Unknown Rx traMADol PO Q6H PRN 03/30/15 03/30/15 Unknown History Albuterol Sulfate [Albuterol 0.63% 0.63 mg IH TID PRN 20 Days ml 03/31/15 Unknown Rx NEBS] Doxycycline [Vibramycin CAP] 100 mg PO Q12HR #14 capsule 03/31/15 Unknown Rx Ipratropium [Atrovent NEB] 0.5 mg IH Q6HRT 20 Days ml 03/31/15 Unknown Rx Permethrin 5% [Acticin 5% CREAM] 1 applicatio TP ONCE #3 tube 03/31/15 Unknown Rx methylPREDNISolone [Medrol Dose 0 mg PO QAM #1 pack 03/31/15 Unknown Rx Markos] Cetirizine HCl [ZyrTEC] 10 mg PO QDAY #14 capsule 03/02/17 Unknown Rx Fluticasone [Flonase] 1 spray NS QDAY #1 bottle 03/02/17 Unknown Rx Hydroxyzine HCl 25 mg PO BID #14 tablet 03/14/17 Unknown Rx Triamcinolone 0.1% [Kenalog 0.1% 1 applic TP TID #1 tube 03/14/17 Unknown Rx CREAM] Permethrin [Elimite] 60 gm TP ONCE #1 tube 03/15/17 Unknown Rx Albuterol Sulfate [Proair 90 mcg IH Q4-6H PRN #1 aer.pow.ba 05/18/17 Unknown Rx Respiclick] Ibuprofen Oral Liqd [Motrin Oral 600 mg PO TID PRN #1 bottle 05/18/17 Unknown Rx Liq 100 mg/5 ml] Ibuprofen [Motrin 600 MG tab] 600 mg PO Q8H PRN #12 tablet 05/18/17 Unknown Rx Fluticasone [Flonase] 1 spray NS QDAY #1 bottle 06/11/17 Unknown Rx Loratadine 10 mg PO DAILY #30 tablet 06/11/17 Unknown Rx Nebulizer Accessories [Aeroneb Go] 1 each PRN #1 each 06/11/17 Unknown Rx ALBUTEROL Inhaler [ProAir HFA 2 puff IH QID PRN #1 inhalation 10/25/17 Unknown Rx Inhaler] ALBUTEROL NEB's [Proventil 0.083% 2.5 mg IH QID PRN #25 each 10/25/17 Unknown Rx NEBS] Budesoni/Formotero 160-4.5(Nf) 2 puff IH BID #1 inha 10/25/17 Unknown Rx [Symbicort 160-4.5 (Nf)] Nitrofurantoin Monohyd/M-Cryst 100 mg PO BID #14 capsule 10/25/17 Unknown Rx [Macrobid 100 mg Capsule] ALBUTEROL Inhaler [Proair] 2 puff IH QID PRN #1 inhalation 10/27/17 Unknown Rx ED Review of Systems ROS: Stated complaint: SOB Other details as noted in HPI Constitutional: diaphoresis Respiratory: cough, shortness of breath, wheezing Cardiovascular: denies: chest pain Musculoskeletal: arthralgia, myalgia Physical Exam - Physical Exam Vital Signs: Vital Signs 10/26/17 10/27/17 23:51 01:24 Temperature 97.5 F L 97.7 F Pulse Rate 66 67 Respiratory 18 12 Rate Blood Pressure 109/67 Blood Pressure 104/64 [Left] O2 Sat by Pulse 98 98 Oximetry Physical Exam: GENERAL: The patient is well-developed well-nourished female lying on stretcher not appearing to be in acute distress. [] HEENT: Normocephalic. Atraumatic. Extraocular motions are intact. Patient has moist mucous membranes. NECK: Supple. Trachea midline CHEST/LUNGS: Clear to auscultation. There is no respiratory distress noted. HEART/CARDIOVASCULAR: Regular. There is no tachycardia. There is no gallop rub or murmur. ABDOMEN: Abdomen is soft, nontender. Patient has normal bowel sounds. There is no abdominal distention. SKIN: There is no rash. There is no diaphoresis. NEURO: The patient is awake, alert, and oriented. The patient is cooperative. The patient has normal speech MUSCULOSKELETAL: There is no evidence of acute injury. ED Course Vital Signs 10/26/17 10/27/17 23:51 01:24 Temperature 97.5 F L 97.7 F Pulse Rate 66 67 Respiratory 18 12 Rate Blood Pressure 109/67 Blood Pressure 104/64 [Left] O2 Sat by Pulse 98 98 Oximetry - Reevaluation(s) Reevaluation #1: 10/27/17 03:17 Patient states she feels improved after [facility] ED Medical Decision Making - Lab Data Result diagrams: 10/27/17 00:33 10/27/17 00:33 Laboratory Tests 10/27/17 10/27/17 10/27/17 00:33 00:33 01:49 WBC 5.4 RBC 4.19 Hgb 11.5 Hct 36.0 MCV 86 MCH 28 MCHC 32 RDW 14.2 Plt Count 166 Lymph % (Auto) 17.4 [place] % (Auto) 6.2 Eos % (Auto) 2.4 Baso % (Auto) 0.3 Lymph # 0.9 L [place] # 0.3 Eos # 0.1 Baso # 0.0 Seg Neutrophils % 73.7 H Seg Neutrophils # 4.0 D-Dimer < 135 Sodium 142 Potassium 3.6 Chloride 103.0 Carbon Dioxide 28 Anion Gap 15 BUN 14 Creatinine 0.7 Estimated GFR > 60 BUN/Creatinine Ratio 20 Glucose 100 Calcium 8.3 L Troponin T < 0.010 - EKG Data -: EKG Interpreted by Me EKG shows normal: sinus rhythm Rate: normal - EKG Data When compared to previous EKG there are: no significant change Interpretation: other (no ischemic changes seen) - Differential Diagnosis COPD exacerbation, pneumonia, PE Critical care attestation.: If time is entered above; I have spent that time in minutes in the direct care of this critically ill patient, excluding procedure time. ED Disposition Clinical Impression: COPD exacerbation Disposition: - TO HOME OR SELFCARE Is pt being admited?: No Does the pt Need Aspirin: No Condition: Stable Instructions: Chronic Obstructive Pulmonary Disease (ED) Additional Instructions: Return to the emergency department immediately should you develop worsening symptoms, fever, inability to tolerate food or liquid or any other concerns. Prescriptions: ALBUTEROL Inhaler [Proair] 2 puff IH QID PRN #1 inhalation PRN Reason: Shortness Of Breath Referrals: [facility] [Other] - 3-5 Days [facility] [Outside] - 3-5 Days IVAN VALENTIN MD [Staff Physician] - 3-5 Days (Dr. Valentin is a certified medical biller. Please follow-up with him for further evaluation) Time of Disposition: 03:19
[2017-10-27 03:21] VITALS: BP 111/63
== END 2017-10-27 03:41 | disposition home or self-care (01) ==
LOC: ED 23:43
DX: J44.1 Chronic obstructive pulmonary disease with (acute) exacerbation (principal); I10 Essential (primary) hypertension; E11.9 Type 2 diabetes mellitus without complications; Z86.73 Personal history of transient ischemic attack (TIA), and cerebral infarction without residual deficits; Z91.011 Allergy to milk products; Z88.0 Allergy status to penicillin; Z91.018 Allergy to other foods; Z88.2 Allergy status to sulfonamides
CPT/HCPCS: 36415; 71045; 80048; 84484; 85025; 85379; 93005; 93010; 94640

== ENCOUNTER 2017-11-07 00:58 | Emergency (ER) | payer OTHER ==
[2017-11-07 01:13] VITALS: BP 105/56
== END 2017-11-07 07:48 | disposition left against medical advice (07) ==
LOC: ED 00:58
DX: M79.673 Pain in unspecified foot (principal); Z53.21 Procedure and treatment not carried out due to patient leaving prior to being seen by health care provider

== ENCOUNTER 2017-11-08 01:41 | Emergency (ER) | payer OTHER ==
[2017-11-08 02:05] VITALS: BP 108/61
== END 2017-11-08 05:58 | disposition left against medical advice (07) ==
LOC: ED 01:41
DX: R06.02 Shortness of breath (principal); Z53.21 Procedure and treatment not carried out due to patient leaving prior to being seen by health care provider

== ENCOUNTER → 2017-11-10 21:06 | Emergency (ER) | payer OTHER | END | disposition left against medical advice (07) | LOC: ED 21:06 | DX: R19.7 Diarrhea, unspecified (principal); R06.02 Shortness of breath; R42 Dizziness and giddiness; Z53.21 Procedure and treatment not carried out due to patient leaving prior to being seen by health care provider ==

== ENCOUNTER 2017-11-11 02:44 | Emergency (ER) | payer OTHER ==
[2017-11-11 03:57] VITALS: BP 110/64
== END 2017-11-11 07:00 | disposition left against medical advice (07) ==
LOC: ED 02:44
DX: R06.02 Shortness of breath (principal); Z53.21 Procedure and treatment not carried out due to patient leaving prior to being seen by health care provider

== ENCOUNTER 2017-11-13 00:36 | Emergency (ER) | payer OTHER ==
[2017-11-13 02:18] LABS: Basophils % (Auto) 0.2 % (0.0-1.8); Eosinophils # (Auto) 0.1 K/mm3 (0.0-0.4); Eosinophils % (Auto) 3.2 % (0.0-4.3); Hematocrit 34.9 % (30.3-42.9); Hemoglobin 11.4 gm/dl (10.1-14.3); Lymphocytes # (Auto) 0.8 K/mm3 (1.2-5.4); Lymphocytes % (Auto) 21.2 % (13.4-35.0); Mean Corpuscular HGB Conc 33 % (30-34); Mean Corpuscular Hemoglobin 28 pg (28-32); Mean Corpuscular Volume 85 fl (79-97); Monocytes # (Auto) 0.4 K/mm3 (0.0-0.8); Monocytes % (Auto) 9.1 % (0.0-7.3); Platelet Count 134 K/mm3 (140-440); Red Blood Count 4.09 M/mm3 (3.65-5.03); Red Cell Distribution Width 13.5 % (13.2-15.2)
--- NOTE | 2017-11-13 07:27 | Emergency Department Report ---
ED General Adult HPI - General Chief complaint: Vaginal Bleeding Stated complaint: VAGINAL BLEEDING,SOB,HEADACHE Time Seen by Provider: 11/13/17 07:26 Source: patient Mode of arrival: Ambulatory Limitations: No Limitations - History of Present Illness Initial comments: She was concerned her hemoglobin had gone low because he had a transfusion for dysfunctional uterine bleeding in the past. Does not complain of abdominal pain. She does not complain of vaginal bleeding. She states her menses is late. She states she recently had a Pap smear with her water treatment technician at [place]. She states that she is dissatisfied with the care at the [facility] and that they have gotten to prescribe her asthma medicine. She really has no acute complaints at time my encounter. Remarkably she doesn't complain of headache or shortness of breath either. -: year(s) Radiation: other (no pain) Consistency: intermittent Improves with: none Worsens with: none Associated Symptoms: denies other symptoms (except for her toes) - Related Data Home Medications Medication Instructions Recorded Confirmed Last Taken Aspirin [Aspirin BABY CHEW TAB] 81 mg PO DAILY 06/19/13 03/30/15 04/12/14 08:00 traMADol PO Q6H PRN 03/30/15 03/30/15 Unknown Previous Rx's Medication Instructions Recorded Last Taken Type Albuterol Sulfate [Proventil HFA] 1 - 2 puff IH Q4H PRN #1 hfa.aer.ad 06/12/14 Unknown Rx Albuterol Sulfate [Albuterol 0.63% 0.63 mg IH TID PRN 20 Days ml 03/31/15 Unknown Rx NEBS] Doxycycline [Vibramycin CAP] 100 mg PO Q12HR #14 capsule 03/31/15 Unknown Rx Ipratropium [Atrovent NEB] 0.5 mg IH Q6HRT 20 Days ml 03/31/15 Unknown Rx Permethrin 5% [Acticin 5% CREAM] 1 applicatio TP ONCE #3 tube 03/31/15 Unknown Rx methylPREDNISolone [Medrol Dose 0 mg PO QAM #1 pack 03/31/15 Unknown Rx Markos] Cetirizine HCl [ZyrTEC] 10 mg PO QDAY #14 capsule 03/02/17 Unknown Rx Fluticasone [Flonase] 1 spray NS QDAY #1 bottle 03/02/17 Unknown Rx Hydroxyzine HCl 25 mg PO BID #14 tablet 03/14/17 Unknown Rx Triamcinolone 0.1% [Kenalog 0.1% 1 applic TP TID #1 tube 03/14/17 Unknown Rx CREAM] Permethrin [Elimite] 60 gm TP ONCE #1 tube 03/15/17 Unknown Rx Albuterol Sulfate [Proair 90 mcg IH Q4-6H PRN #1 aer.pow.ba 05/18/17 Unknown Rx Respiclick] Ibuprofen Oral Liqd [Motrin Oral 600 mg PO TID PRN #1 bottle 05/18/17 Unknown Rx Liq 100 mg/5 ml] Ibuprofen [Motrin 600 MG tab] 600 mg PO Q8H PRN #12 tablet 05/18/17 Unknown Rx Fluticasone [Flonase] 1 spray NS QDAY #1 bottle 06/11/17 Unknown Rx Loratadine 10 mg PO DAILY #30 tablet 06/11/17 Unknown Rx Nebulizer Accessories [Aeroneb Go] 1 each MC PRN #1 each 06/11/17 Unknown Rx Nitrofurantoin Monohyd/M-Cryst 100 mg PO BID #14 capsule 10/25/17 Unknown Rx [Macrobid 100 mg Capsule] ALBUTEROL Inhaler [ProAir HFA 2 puff IH QID PRN #1 inhalation 11/13/17 Unknown Rx Inhaler] ALBUTEROL Inhaler [ProAir HFA 2 puff IH QID PRN #1 inhalation 11/13/17 Unknown Rx Inhaler] ALBUTEROL NEB's [Proventil 0.083% 2.5 mg IH QID PRN #25 each 11/13/17 Unknown Rx NEBS] Budesoni/Formotero 160-4.5(Nf) 2 puff IH BID #1 inha 11/13/17 Unknown Rx [Symbicort 160-4.5 (Nf)] Sulfamethoxazole/Trimethoprim 1 each PO BID #14 tablet 11/13/17 Unknown Rx [Bactrim DS TAB] Allergies Allergy/AdvReac Type Severity Reaction Status Date / Time milk Allergy Swelling Verified 12/31/14 07:57 Penicillins Allergy Itching Verified 12/31/14 07:57 strawberry [[place]] Allergy Rash Verified 12/31/14 07:57 Sulfa (Sulfonamide Allergy Itching Verified 12/31/14 07:57 Antibiotics) ED Review of Systems ROS: Stated complaint: VAGINAL BLEEDING,SOB,HEADACHE Other details as noted in HPI Constitutional: weakness. denies: chills, fever Eyes: denies: eye pain, eye discharge, vision change ENT: denies: ear pain, throat pain Respiratory: other (asthma but no acute sx). denies: cough, shortness of breath , wheezing Cardiovascular: denies: chest pain, palpitations Endocrine: no symptoms reported Gastrointestinal: denies: abdominal pain, nausea, diarrhea Genitourinary: denies: urgency, dysuria, discharge Musculoskeletal: denies: back pain, joint swelling, arthralgia Skin: as per HPI (toe problems). denies: rash, lesions Neurological: denies: headache, weakness, paresthesias Psychiatric: denies: anxiety, depression Hematological/Lymphatic: denies: easy bleeding, easy bruising 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) Additional medical history: Anemia, A-fib, sinus problems - Surgical History Past Surgical History?: No Additional Surgical History: wisdom teeth removed - Social History Smoking Status: Never Smoker Substance Use Type: None - Medications Home Medications: Home Medications Medication Instructions Recorded Confirmed Last Taken Type Aspirin [Aspirin BABY CHEW TAB] 81 mg PO DAILY 06/19/13 03/30/15 04/12/14 08:00 History Albuterol Sulfate [Proventil HFA] 1 - 2 puff IH Q4H PRN #1 hfa.aer.ad 06/12/14 03/30/15 Unknown Rx traMADol PO Q6H PRN 03/30/15 03/30/15 Unknown History Albuterol Sulfate [Albuterol 0.63% 0.63 mg IH TID PRN 20 Days ml 03/31/15 Unknown Rx NEBS] Doxycycline [Vibramycin CAP] 100 mg PO Q12HR #14 capsule 03/31/15 Unknown Rx Ipratropium [Atrovent NEB] 0.5 mg IH Q6HRT 20 Days ml 03/31/15 Unknown Rx Permethrin 5% [Acticin 5% CREAM] 1 applicatio TP ONCE #3 tube 03/31/15 Unknown Rx methylPREDNISolone [Medrol Dose 0 mg PO QAM #1 pack 03/31/15 Unknown Rx Markos] Cetirizine HCl [ZyrTEC] 10 mg PO QDAY #14 capsule 03/02/17 Unknown Rx Fluticasone [Flonase] 1 spray NS QDAY #1 bottle 03/02/17 Unknown Rx Hydroxyzine HCl 25 mg PO BID #14 tablet 03/14/17 Unknown Rx Triamcinolone 0.1% [Kenalog 0.1% 1 applic TP TID #1 tube 03/14/17 Unknown Rx CREAM] Permethrin [Elimite] 60 gm TP ONCE #1 tube 03/15/17 Unknown Rx Albuterol Sulfate [Proair 90 mcg IH Q4-6H PRN #1 aer.pow.ba 05/18/17 Unknown Rx Respiclick] Ibuprofen Oral Liqd [Motrin Oral 600 mg PO TID PRN #1 bottle 05/18/17 Unknown Rx Liq 100 mg/5 ml] Ibuprofen [Motrin 600 MG tab] 600 mg PO Q8H PRN #12 tablet 05/18/17 Unknown Rx Fluticasone [Flonase] 1 spray NS QDAY #1 bottle 06/11/17 Unknown Rx Loratadine 10 mg PO DAILY #30 tablet 06/11/17 Unknown Rx Nebulizer Accessories [Aeroneb Go] 1 each PRN #1 each 06/11/17 Unknown Rx Nitrofurantoin Monohyd/M-Cryst 100 mg PO BID #14 capsule 10/25/17 Unknown Rx [Macrobid 100 mg Capsule] ALBUTEROL Inhaler [ProAir HFA 2 puff IH QID PRN #1 inhalation 11/13/17 Unknown Rx Inhaler] ALBUTEROL Inhaler [ProAir HFA 2 puff IH QID PRN #1 inhalation 11/13/17 Unknown Rx Inhaler] ALBUTEROL NEB's [Proventil 0.083% 2.5 mg IH QID PRN #25 each 11/13/17 Unknown Rx NEBS] Budesoni/Formotero 160-4.5(Nf) 2 puff IH BID #1 inha 11/13/17 Unknown Rx [Symbicort 160-4.5 (Nf)] Sulfamethoxazole/Trimethoprim 1 each PO BID #14 tablet 11/13/17 Unknown Rx [Bactrim DS TAB] ED Physical Exam - General Limitations: No Limitations General appearance: alert, in no apparent distress - Head Head exam: Present: atraumatic, normocephalic - Eye Eye exam: Present: normal appearance, PERRL, EOMI. Absent: scleral icterus - ENT ENT exam: Present: normal exam, mucous membranes moist - Neck Neck exam: Present: normal inspection. Absent: tenderness, meningismus - Respiratory Respiratory exam: Present: normal lung sounds bilaterally. Absent: respiratory distress - Cardiovascular Cardiovascular Exam: Present: regular rate, normal rhythm. Absent: systolic murmur, diastolic murmur, rubs, gallop - GI/Abdominal GI/Abdominal exam: Present: soft, normal bowel sounds. Absent: distended, tenderness, guarding, rebound, rigid - Extremities Exam Extremities exam: Present: normal inspection, other (bilateral ingrown toenail with minimal erythema) - Back Exam Back exam: Present: normal inspection - Neurological Exam Neurological exam: Present: alert, oriented X3, CN II-XII intact. Absent: motor sensory deficit - Psychiatric Psychiatric exam: Present: normal affect, normal mood - Skin Skin exam: Present: warm, dry, intact, normal color. Absent: rash ED Course Vital Signs 11/13/17 11/13/17 11/13/17 01:05 01:26 06:05 Temperature 98.0 F 98 F Pulse Rate 86 88 Respiratory 18 18 20 Rate Blood Pressure 108/61 106/61 O2 Sat by Pulse 99 99 Oximetry - Reevaluation(s) Reevaluation #1: Patient with chronic complaints. She is not acutely weak. She is asymptomatic at this time. 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 She is referred back for results of her Pap smear. I will renew her requested asthma medicine. She also states that she has chronic problems with her toes. She has bilateral ingrown toenails that are non-professionally trimmed. This a little bit of erythema but it's really not at all overwhelming for infection. She states she is diabetic so I will place her on some Bactrim and referred to podiatry. An Accu-Chek will be obtained. 11/13/17 07:46 11/13/17 07:52 ED Medical Decision Making - Lab Data Result diagrams: 11/13/17 01:53 Laboratory Results - last 24 hr 11/13/17 11/13/17 11/13/17 01:53 01:53 01:53 WBC 4.0 L RBC 4.09 Hgb 11.4 Hct 34.9 MCV 85 MCH 28 MCHC 33 RDW 13.5 Plt Count 134 L Lymph % (Auto) 21.2 [place] % (Auto) 9.1 H Eos % (Auto) 3.2 Baso % (Auto) 0.2 Lymph # 0.8 L [place] # 0.4 Eos # 0.1 Baso # 0.0 Seg Neutrophils % 66.3 Seg Neutrophils # 2.6 HCG, Quant 1.15 Blood Type O POSITIVE Antibody Screen Negative Critical care attestation.: If time is entered above; I have spent that time in minutes in the direct care of this critically ill patient, excluding procedure time. ED Disposition Clinical Impression: Weakness, Dysfunctional uterine bleeding, Ingrown toenail Disposition: TO HOME OR SELFCARE Is pt being admited?: No Does the pt Need Aspirin: No Condition: Stable Instructions: Ingrown Nail (ED), Dysfunctional Uterine Bleeding (ED) Prescriptions: ALBUTEROL Inhaler [ProAir HFA Inhaler] 2 puff IH QID PRN #1 inhalation PRN Reason: Shortness Of Breath ALBUTEROL Inhaler [ProAir HFA Inhaler] 2 puff IH QID PRN #1 inhalation PRN Reason: Shortness Of Breath ALBUTEROL NEB's [Proventil 0.083% NEBS] 2.5 mg IH QID PRN #25 each PRN Reason: wheezing Budesoni/Formotero 160-4.5(Nf) [Symbicort 160-4.5 (Nf)] 2 puff IH BID #1 inha Sulfamethoxazole/Trimethoprim [Bactrim DS TAB] 1 each PO BID #14 tablet Referrals: SHO MONTEIRO [Primary Care Provider] - 3-5 Days usual, water treatment technician at [facility] [Other] - 3-5 Days Time of Disposition: 07:56
[2017-11-13 08:15] LABS: Bilirubin,Urine NEG (Negative); Blood,Urine NEG (Negative); Color,Urine Yellow (Yellow); Mucus,Urine FEW /HPF; Protein,Urine <15 mg/dL mg/dL (Negative); Urobilinogen,Urine < 2.0 mg/dL (<2.0)
[2017-11-13 08:25] VITALS: BP 96/59
== END 2017-11-13 08:24 | disposition home or self-care (01) ==
LOC: ED 00:36
DX: N93.8 Other specified abnormal uterine and vaginal bleeding (principal); L60.0 Ingrowing nail; I10 Essential (primary) hypertension; E11.9 Type 2 diabetes mellitus without complications; J43.9 Emphysema, unspecified; I48.91 Unspecified atrial fibrillation; Z86.2 Personal history of diseases of the blood and blood-forming organs and certain disorders involving the immune mechanism; Z79.82 Long term (current) use of aspirin; Z91.011 Allergy to milk products; Z88.0 Allergy status to penicillin; Z88.2 Allergy status to sulfonamides; Z91.018 Allergy to other foods
CPT/HCPCS: 36415; 81001; 82962; 84702; 85025; 86850; 86900; 86901; 99283

== ENCOUNTER 2017-11-16 12:08 | Emergency (ER) | payer OTHER | END 2017-11-16 12:30 | disposition left against medical advice (07) | LOC: ED 12:08 | DX: M79.602 Pain in left arm (principal); Z53.21 Procedure and treatment not carried out due to patient leaving prior to being seen by health care provider ==

== ENCOUNTER 2017-11-23 00:09 | Emergency (ER) | payer OTHER ==
[2017-11-23] MEDS ORDERED: MOTRIN PO ONE (04:08)
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
[2017-11-23 05:05] VITALS: BP 114/62
== END 2017-11-23 05:05 | disposition home or self-care (01) ==
LOC: ED 00:09
DX: S46.912A Strain of unspecified muscle, fascia and tendon at shoulder and upper arm level, left arm, initial encounter (principal); I10 Essential (primary) hypertension; E11.9 Type 2 diabetes mellitus without complications; J45.909 Unspecified asthma, uncomplicated; I48.91 Unspecified atrial fibrillation; Z86.2 Personal history of diseases of the blood and blood-forming organs and certain disorders involving the immune mechanism; Z79.82 Long term (current) use of aspirin; Z91.011 Allergy to milk products; Z88.0 Allergy status to penicillin; Z88.5 Allergy status to narcotic agent; Z91.018 Allergy to other foods; W22.8XXA Striking against or struck by other objects, initial encounter; Y93.89 Activity, other specified; Y92.89 Other specified places as the place of occurrence of the external cause; Y99.8 Other external cause status
CPT/HCPCS: 99282

== ENCOUNTER 2017-11-26 23:52 | Emergency (ER) | payer OTHER ==
[2017-11-27] MEDS ORDERED: DUONEB *Not for PRN Use IH ONE ×2 (03:48→05:01)
[2017-11-27] MEDS ORDERED: DELTASONE PO ONE (03:48)
[2017-11-27] MEDS ORDERED: PROVENTIL IH ONE (03:48)
--- NOTE | 2017-11-27 03:50 | Emergency Department Report ---
ED Shortness of Breath HPI - General Chief Complaint: Dyspnea/Respdistress Stated Complaint: SOB,HYPERTENSION Time Seen by Provider: 11/27/17 03:48 Source: patient Mode of arrival: Ambulatory Limitations: No Limitations - History of Present Illness Initial Comments: 52-year-old female multiple medical problems including TIas, COPD and emphysema presents with complaint of wheezing and acute on chronic left shoulder pain. Patient is awake alert and oriented 3. States that she think she would benefit from an nebulized treatment. Patient denies any chest pain palpitations abdominal pain nausea vomiting fever or chills. Patient denies productive cough. States that it is mostly a wheezing sensation that she has been experiencing. States that she was recently at [facility] for similar complaint. Patient is ambulatory without assistance. Patient is a smoker MD Complaint: shortness of breath Onset/Timin -: days(s) Radiation: left arm (left shoulder) Severity: moderate Quality: aching Consistency: intermittent Known History Of: COPD, asthma Associated Symptoms: denies other symptoms - Related Data Home Medications Medication Instructions Recorded Confirmed Last Taken Aspirin [Aspirin BABY CHEW TAB] 81 mg PO DAILY 06/19/13 03/30/15 04/12/14 08:00 traMADol PO Q6H PRN 03/30/15 03/30/15 Unknown Previous Rx's Medication Instructions Recorded Last Taken Type Albuterol Sulfate [Proventil HFA] 1 - 2 puff IH Q4H PRN #1 hfa.aer.ad 06/12/14 Unknown Rx Albuterol Sulfate [Albuterol 0.63% 0.63 mg IH TID PRN 20 Days ml 03/31/15 Unknown Rx NEBS] Doxycycline [Vibramycin CAP] 100 mg PO Q12HR #14 capsule 03/31/15 Unknown Rx Ipratropium [Atrovent NEB] 0.5 mg IH Q6HRT 20 Days ml 03/31/15 Unknown Rx Permethrin 5% [Acticin 5% CREAM] 1 applicatio TP ONCE #3 tube 03/31/15 Unknown Rx methylPREDNISolone [Medrol Dose 0 mg PO QAM #1 pack 03/31/15 Unknown Rx Markos] Cetirizine HCl [ZyrTEC] 10 mg PO QDAY #14 capsule 03/02/17 Unknown Rx Fluticasone [Flonase] 1 spray NS QDAY #1 bottle 03/02/17 Unknown Rx Hydroxyzine HCl 25 mg PO BID #14 tablet 03/14/17 Unknown Rx Triamcinolone 0.1% [Kenalog 0.1% 1 applic TP TID #1 tube 03/14/17 Unknown Rx CREAM] Permethrin [Elimite] 60 gm TP ONCE #1 tube 03/15/17 Unknown Rx Albuterol Sulfate [Proair 90 mcg IH Q4-6H PRN #1 aer.pow.ba 05/18/17 Unknown Rx Respiclick] Ibuprofen Oral Liqd [Motrin Oral 600 mg PO TID PRN #1 bottle 05/18/17 Unknown Rx Liq 100 mg/5 ml] Ibuprofen [Motrin 600 MG tab] 600 mg PO Q8H PRN #12 tablet 05/18/17 Unknown Rx Fluticasone [Flonase] 1 spray NS QDAY #1 bottle 06/11/17 Unknown Rx Loratadine 10 mg PO DAILY #30 tablet 06/11/17 Unknown Rx Nebulizer Accessories [Aeroneb Go] 1 each PRN #1 each 06/11/17 Unknown Rx Nitrofurantoin Monohyd/M-Cryst 100 mg PO BID #14 capsule 10/25/17 Unknown Rx [Macrobid 100 mg Capsule] ALBUTEROL Inhaler [ProAir HFA 2 puff IH QID PRN #1 inhalation 11/13/17 Unknown Rx Inhaler] ALBUTEROL Inhaler [ProAir HFA 2 puff IH QID PRN #1 inhalation 11/13/17 Unknown Rx Inhaler] ALBUTEROL NEB's [Proventil 0.083% 2.5 mg IH QID PRN #25 each 11/13/17 Unknown Rx NEBS] Budesoni/Formotero 160-4.5(Nf) 2 puff IH BID #1 inha 11/13/17 Unknown Rx [Symbicort 160-4.5 (Nf)] Sulfamethoxazole/Trimethoprim 1 each PO BID #14 tablet 11/13/17 Unknown Rx [Bactrim DS TAB] Ibuprofen Oral Liqd [Motrin Oral 600 mg PO TID PRN 10 Days bottle 11/23/17 Unknown Rx Liq 100 mg/5 ml] Acetaminophen [Acetaminophen TAB] 500 mg PO Q6HR PRN #20 tablet 11/27/17 Unknown Rx Albuterol Sulfate [Ventolin Hfa] 1 puff IH Q4H PRN #1 hfa.aer.ad 11/27/17 Unknown Rx predniSONE [Deltasone] 40 mg PO BID #10 tablet 11/27/17 Unknown Rx Allergies Allergy/AdvReac Type Severity Reaction Status Date / Time milk Allergy Swelling Verified 12/31/14 07:57 Penicillins Allergy Itching Verified 12/31/14 07:57 strawberry [Duff] Allergy Rash Verified 12/31/14 07:57 Sulfa (Sulfonamide Allergy Itching Verified 12/31/14 07:57 Antibiotics) ED Review of Systems ROS: Stated complaint: SOB,HYPERTENSION Other details as noted in HPI Constitutional: denies: chills, fever Eyes: denies: eye pain, eye discharge, vision change ENT: denies: ear pain, throat pain Respiratory: cough, shortness of breath, wheezing Cardiovascular: denies: chest pain, palpitations Endocrine: no symptoms reported Gastrointestinal: denies: abdominal pain, nausea, diarrhea Genitourinary: denies: urgency, dysuria, discharge Musculoskeletal: denies: back pain, joint swelling, arthralgia Skin: denies: rash, lesions Neurological: denies: headache, weakness, paresthesias Psychiatric: denies: anxiety, depression Hematological/Lymphatic: denies: easy bleeding, easy bruising 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) Additional medical history: Anemia, A-fib, sinus problems - Surgical History Past Surgical History?: Yes Additional Surgical History: wisdom teeth removed - Social History Smoking Status: Never Smoker Substance Use Type: None - Medications Home Medications: Home Medications Medication Instructions Recorded Confirmed Last Taken Type Aspirin [Aspirin BABY CHEW TAB] 81 mg PO DAILY 06/19/13 03/30/15 04/12/14 08:00 History Albuterol Sulfate [Proventil HFA] 1 - 2 puff IH Q4H PRN #1 hfa.aer.ad 06/12/14 03/30/15 Unknown Rx traMADol PO Q6H PRN 03/30/15 03/30/15 Unknown History Albuterol Sulfate [Albuterol 0.63% 0.63 mg IH TID PRN 20 Days ml 03/31/15 Unknown Rx NEBS] Doxycycline [Vibramycin CAP] 100 mg PO Q12HR #14 capsule 03/31/15 Unknown Rx Ipratropium [Atrovent NEB] 0.5 mg IH Q6HRT 20 Days ml 03/31/15 Unknown Rx Permethrin 5% [Acticin 5% CREAM] 1 applicatio TP ONCE #3 tube 03/31/15 Unknown Rx methylPREDNISolone [Medrol Dose 0 mg PO QAM #1 pack 03/31/15 Unknown Rx Markos] Cetirizine HCl [ZyrTEC] 10 mg PO QDAY #14 capsule 03/02/17 Unknown Rx Fluticasone [Flonase] 1 spray NS QDAY #1 bottle 03/02/17 Unknown Rx Hydroxyzine HCl 25 mg PO BID #14 tablet 03/14/17 Unknown Rx Triamcinolone 0.1% [Kenalog 0.1% 1 applic TP TID #1 tube 03/14/17 Unknown Rx CREAM] Permethrin [Elimite] 60 gm TP ONCE #1 tube 03/15/17 Unknown Rx Albuterol Sulfate [Proair 90 mcg IH Q4-6H PRN #1 aer.pow.ba 05/18/17 Unknown Rx Respiclick] Ibuprofen Oral Liqd [Motrin Oral 600 mg PO TID PRN #1 bottle 05/18/17 Unknown Rx Liq 100 mg/5 ml] Ibuprofen [Motrin 600 MG tab] 600 mg PO Q8H PRN #12 tablet 05/18/17 Unknown Rx Fluticasone [Flonase] 1 spray NS QDAY #1 bottle 06/11/17 Unknown Rx Loratadine 10 mg PO DAILY #30 tablet 06/11/17 Unknown Rx Nebulizer Accessories [Aeroneb Go] 1 each PRN #1 each 06/11/17 Unknown Rx Nitrofurantoin Monohyd/M-Cryst 100 mg PO BID #14 capsule 10/25/17 Unknown Rx [Macrobid 100 mg Capsule] ALBUTEROL Inhaler [ProAir HFA 2 puff IH QID PRN #1 inhalation 11/13/17 Unknown Rx Inhaler] ALBUTEROL Inhaler [ProAir HFA 2 puff IH QID PRN #1 inhalation 11/13/17 Unknown Rx Inhaler] ALBUTEROL NEB's [Proventil 0.083% 2.5 mg IH QID PRN #25 each 11/13/17 Unknown Rx NEBS] Budesoni/Formotero 160-4.5(Nf) 2 puff IH BID #1 inha 11/13/17 Unknown Rx [Symbicort 160-4.5 (Nf)] Sulfamethoxazole/Trimethoprim 1 each PO BID #14 tablet 11/13/17 Unknown Rx [Bactrim DS TAB] Ibuprofen Oral Liqd [Motrin Oral 600 mg PO TID PRN 10 Days bottle 11/23/17 Unknown Rx Liq 100 mg/5 ml] Acetaminophen [Acetaminophen TAB] 500 mg PO Q6HR PRN #20 tablet 11/27/17 Unknown Rx Albuterol Sulfate [Ventolin Hfa] 1 puff IH Q4H PRN #1 hfa.aer.ad 11/27/17 Unknown Rx predniSONE [Deltasone] 40 mg PO BID #10 tablet 11/27/17 Unknown Rx ED Physical Exam - General Limitations: No Limitations General appearance: alert, in no apparent distress - Head Head exam: Present: atraumatic, normocephalic - Eye Eye exam: Present: normal appearance, PERRL, EOMI - ENT ENT exam: Present: mucous membranes moist - Neck Neck exam: Present: normal inspection - Respiratory Respiratory exam: Present: wheezes (patient has wheezing bilaterally). Absent: respiratory distress - Cardiovascular Cardiovascular Exam: Present: regular rate, normal rhythm. Absent: systolic murmur, diastolic murmur, rubs, gallop - GI/Abdominal GI/Abdominal exam: Present: soft, normal bowel sounds - Extremities Exam Extremities exam: Present: normal inspection - Back Exam Back exam: Present: normal inspection - Neurological Exam Neurological exam: Present: alert, oriented X3 - Psychiatric Psychiatric exam: Present: normal affect, normal mood - Skin Skin exam: Present: warm, dry, intact, normal color. Absent: rash ED Course Vital Signs 11/27/17 11/27/17 11/27/17 00:44 00:52 06:34 Temperature 98.1 F 98.0 F 98.7 F Pulse Rate 84 80 68 Respiratory 18 17 16 Rate Blood Pressure 103/57 103/57 Blood Pressure 95/54 [Right] O2 Sat by Pulse 98 98 98 Oximetry ED Medical Decision Making - Medical Decision Making A/P: Asthma/COPD exacerbation, acute on chronic left shoulder pain 1- course of prednisone, albuterol inhaler 2- x-ray shows no pneumonia, degenerative changes left shoulder no fractures or dislocations Critical care attestation.: If time is entered above; I have spent that time in minutes in the direct care of this critically ill patient, excluding procedure time. ED Disposition Clinical Impression: Shoulder pain, left Qualifiers: Chronicity: chronic Qualified Code(s): M25.512 - Pain in left shoulder COPD (chronic obstructive pulmonary disease) Qualifiers: COPD type: chronic bronchitis Chronic bronchitis type: simple Qualified Code(s) : J41.0 - Simple chronic bronchitis Disposition: TO HOME OR SELFCARE Is pt being admited?: No Does the pt Need Aspirin: No Condition: Stable Instructions: Chronic Obstructive Pulmonary Disease (ED) Prescriptions: Acetaminophen [Acetaminophen TAB] 500 mg PO Q6HR PRN #20 tablet PRN Reason: Pain Albuterol Sulfate [Ventolin Hfa] 1 puff IH Q4H PRN #1 hfa.aer.ad PRN Reason: Wheezing predniSONE [Deltasone] 40 mg PO BID #10 tablet Referrals: TONY HERNADEZ MD [Primary Care Provider] - 3-5 Days [facility] [Provider Group] - 3-5 Days [facility] [Outside] - 3-5 Days Time of Disposition: 06:39
--- NOTE | 2017-11-27 05:24 | XRay Report ---
FINAL REPORT EXAM: XR SHOULDER 2+V LT HISTORY: left shoulder pain TECHNIQUE: Three views of the left shoulder were submitted. FINDINGS: The glenohumeral joint appears normal. The subacromial space appears normal. There is minimal arthritic changes of the AC joint. There is no evidence of fracture. The soft tissues are unremarkable. IMPRESSION: Minimal arthritic changes of the AC joint.
--- NOTE | 2017-11-27 05:25 | XRay Report ---
FINAL REPORT EXAM: XR CHEST ROUTINE 2V HISTORY: cough TECHNIQUE: PA and lateral views of the chest were obtained. Comparison is made to the previous study of 10/27/2017. FINDINGS: The lungs are hyperinflated. There are no localized infiltrates or congestion. Pleural fluid is not seen. The heart size is normal. The skeletal structures are well-maintained. IMPRESSION: Hyperinflation. No acute process in the chest.
[2017-11-27 06:36] VITALS: BP 95/54
== END 2017-11-27 06:40 | disposition home or self-care (01) ==
LOC: ED 23:52
DX: J44.9 Chronic obstructive pulmonary disease, unspecified (principal); M25.512 Pain in left shoulder; G89.29 Other chronic pain; I10 Essential (primary) hypertension; E11.9 Type 2 diabetes mellitus without complications; I48.91 Unspecified atrial fibrillation; Z88.0 Allergy status to penicillin; Z88.2 Allergy status to sulfonamides; Z91.011 Allergy to milk products; Z91.018 Allergy to other foods
CPT/HCPCS: 71046; 73030; 94640; 99283; J7512

== ENCOUNTER 2017-12-01 00:53 | Emergency (ER) | payer OTHER ==
[2017-12-01 01:13] VITALS: BP 104/63
--- NOTE | 2017-12-01 02:37 | Emergency Department Report ---
HPI - General Chief Complaint: Laceration/Recheck/Suture Time Seen by Provider: 12/01/17 02:09 - HPI HPI: Patient is a 52-year-old female who presents to ED complaining of left fifth digit toe abrasion 2-3 days Patient denies any injuries trauma to the foot. She denies loss of sensation, swelling, fever, puncture wound 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) Additional medical history: Anemia, A-fib, sinus problems - Surgical History Past Surgical History?: Yes Additional Surgical History: wisdom teeth removed - Social History Smoking Status: Never Smoker Substance Use Type: None - Medications Home Medications: Home Medications Medication Instructions Recorded Confirmed Last Taken Type Aspirin [Aspirin BABY CHEW TAB] 81 mg PO DAILY 06/19/13 03/30/15 04/12/14 08:00 History Albuterol Sulfate [Proventil HFA] 1 - 2 puff IH Q4H PRN #1 hfa.aer.ad 06/12/14 03/30/15 Unknown Rx traMADol PO Q6H PRN 03/30/15 03/30/15 Unknown History Albuterol Sulfate [Albuterol 0.63% 0.63 mg IH TID PRN 20 Days ml 03/31/15 Unknown Rx NEBS] Doxycycline [Vibramycin CAP] 100 mg PO Q12HR #14 capsule 03/31/15 Unknown Rx Ipratropium [Atrovent NEB] 0.5 mg IH Q6HRT 20 Days ml 03/31/15 Unknown Rx Permethrin 5% [Acticin 5% CREAM] 1 applicatio TP ONCE #3 tube 03/31/15 Unknown Rx methylPREDNISolone [Medrol Dose 0 mg PO QAM #1 pack 03/31/15 Unknown Rx Markos] Cetirizine HCl [ZyrTEC] 10 mg PO QDAY #14 capsule 03/02/17 Unknown Rx Fluticasone [Flonase] 1 spray NS QDAY #1 bottle 03/02/17 Unknown Rx Hydroxyzine HCl 25 mg PO BID #14 tablet 03/14/17 Unknown Rx Triamcinolone 0.1% [Kenalog 0.1% 1 applic TP TID #1 tube 03/14/17 Unknown Rx CREAM] Permethrin [Elimite] 60 gm TP ONCE #1 tube 03/15/17 Unknown Rx Albuterol Sulfate [Proair 90 mcg IH Q4-6H PRN #1 aer.pow.ba 05/18/17 Unknown Rx Respiclick] Ibuprofen Oral Liqd [Motrin Oral 600 mg PO TID PRN #1 bottle 05/18/17 Unknown Rx Liq 100 mg/5 ml] Fluticasone [Flonase] 1 spray NS QDAY #1 bottle 06/11/17 Unknown Rx Loratadine 10 mg PO DAILY #30 tablet 06/11/17 Unknown Rx Nebulizer Accessories [Aeroneb Go] 1 each MC PRN #1 each 06/11/17 Unknown Rx Nitrofurantoin Monohyd/M-Cryst 100 mg PO BID #14 capsule 10/25/17 Unknown Rx [Macrobid 100 mg Capsule] ALBUTEROL Inhaler [ProAir HFA 2 puff IH QID PRN #1 inhalation 11/13/17 Unknown Rx Inhaler] ALBUTEROL Inhaler [ProAir HFA 2 puff IH QID PRN #1 inhalation 11/13/17 Unknown Rx Inhaler] ALBUTEROL NEB's [Proventil 0.083% 2.5 mg IH QID PRN #25 each 11/13/17 Unknown Rx NEBS] Budesoni/Formotero 160-4.5(Nf) 2 puff IH BID #1 inha 11/13/17 Unknown Rx [Symbicort 160-4.5 (Nf)] Ibuprofen Oral Liqd [Motrin Oral 600 mg PO TID PRN 10 Days bottle 11/23/17 Unknown Rx Liq 100 mg/5 ml] Acetaminophen [Acetaminophen TAB] 500 mg PO Q6HR PRN #20 tablet 11/27/17 Unknown Rx Albuterol Sulfate [Ventolin Hfa] 1 puff IH Q4H PRN #1 hfa.aer.ad 11/27/17 Unknown Rx predniSONE [Deltasone] 40 mg PO BID #10 tablet 11/27/17 Unknown Rx Cephalexin [Keflex] 500 mg PO Q12HR #10 cap 12/01/17 Unknown Rx Ibuprofen [Motrin 600 MG tab] 600 mg PO Q8H PRN #12 tablet 12/01/17 Unknown Rx ED Review of Systems ROS: Stated complaint: LT FOOT INJURY Other details as noted in HPI Constitutional: denies: chills, fever Eyes: denies: eye pain, eye discharge, vision change ENT: denies: ear pain, throat pain Respiratory: denies: cough, shortness of breath, wheezing Cardiovascular: denies: chest pain, palpitations Endocrine: no symptoms reported Gastrointestinal: denies: abdominal pain, nausea, diarrhea Genitourinary: denies: urgency, dysuria, discharge Musculoskeletal: denies: back pain, joint swelling, arthralgia Skin: denies: rash, lesions Neurological: denies: headache, weakness, paresthesias Psychiatric: denies: anxiety, depression Hematological/Lymphatic: denies: easy bleeding, easy bruising Physical Exam - Physical Exam Vital Signs: Vital Signs 12/01/17 01:08 Temperature 97.9 F Pulse Rate 85 Respiratory 16 Rate Blood Pressure 104/63 O2 Sat by Pulse 97 Oximetry Physical Exam: GENERAL: Alert and oriented x3, no apparent distress, Normal Gait, atraumatic. HEAD: Head is normocephalic and a-traumatic. NECK: Supple. Non edematous, No lymphadenopathy or thyromegaly. No C-spine tenderness, full range of motion LUNGS: Symetrical with respiration, No wheezing, no rales or crackles, CTAB. HEART: S1, S2 present, regular rate and rhythm without murmur, no rubs, no gallops. Non tender to palpation BACK: Full range of motion, no spinal tenderness, Tenderness to palpation of the trapezius muscles and latissimus dorsi muscles of the back EXTREMITIES/MUSCULOSKELETAL: No cyanosis, clubbing, rash, lesions or edema. Full ROM bilaterally. UE/LE Pulses 2+ bilaterally. LE and UE 5+ strength bilaterally, NEUROLOGIC: The patient is cooperative with no focal neurologic deficits. SKIN: Warm and dry, No lesions, No ulceration or induration present. ED Course Vital Signs 12/01/17 01:08 Temperature 97.9 F Pulse Rate 85 Respiratory 16 Rate Blood Pressure 104/63 O2 Sat by Pulse 97 Oximetry ED Medical Decision Making - Medical Decision Making Fifth digit abrasion No Other injuries noted no ulcers. Abrasion cleaned and triple antibiotic applied. Discussed patient to keep clean and to keep dry. Discussed to follow up with primary care physician. Vital signs normal patient is in no acute distress Critical care attestation.: If time is entered above; I have spent that time in minutes in the direct care of this critically ill patient, excluding procedure time. ED Disposition Clinical Impression: Toe abrasion, non-infected Disposition: TO HOME OR SELFCARE Is pt being admited?: No Does the pt Need Aspirin: No Condition: Stable Instructions: Abrasion (ED), Acute Wound Care (ED) Additional Instructions: Make sure to follow up with the primary care physician as discussed. Take all your medications as you've been prescribed. If you have any worsening symptoms or develop new symptoms please return to ED immediately. Prescriptions: Cephalexin [Keflex] 500 mg PO Q12HR #10 cap Ibuprofen [Motrin 600 MG tab] 600 mg PO Q8H PRN #12 tablet PRN Reason: Pain Referrals: PRIMARY CAREMD [Primary Care Provider] - 3-5 Days TIMMY HUERTAS MD [Staff Physician] - 3-5 Days Forms: Work/School Release Form(ED) Time of Disposition: 02:37
[2017-12-01] MEDS ORDERED: TRIPLE ANTIBIOTIC TP ONE ×2 (02:54→03:02)
== END 2017-12-01 03:04 | disposition home or self-care (01) ==
LOC: ED 00:53
DX: S90.415A Abrasion, left lesser toe(s), initial encounter (principal); I10 Essential (primary) hypertension; E11.9 Type 2 diabetes mellitus without complications; J44.9 Chronic obstructive pulmonary disease, unspecified; X58.XXXA Exposure to other specified factors, initial encounter; Y93.89 Activity, other specified; Y92.89 Other specified places as the place of occurrence of the external cause; Y99.8 Other external cause status
CPT/HCPCS: 99282; A6250

== ENCOUNTER 2017-12-07 01:39 | Emergency (ER) | payer OTHER ==
[2017-12-07 02:40] VITALS: BP 102/64
== END 2017-12-07 07:49 | disposition left against medical advice (07) ==
LOC: ED 01:39
DX: J02.9 Acute pharyngitis, unspecified (principal); Z53.21 Procedure and treatment not carried out due to patient leaving prior to being seen by health care provider

== ENCOUNTER 2017-12-10 02:28 | Emergency (ER) | payer SELFPAY | END 2017-12-10 02:29 | disposition left against medical advice (07) | LOC: ED 02:28 | DX: R05 Cough (principal); R09.81 Nasal congestion; Z53.21 Procedure and treatment not carried out due to patient leaving prior to being seen by health care provider ==

== ENCOUNTER 2017-12-11 00:08 | Emergency (ER) | payer SELFPAY ==
[2017-12-11 00:16] VITALS: BP 101/64
[2017-12-11 01:03] LABS: Mean Corpuscular HGB Conc 32 % (30-34); Mean Corpuscular Hemoglobin 28 pg (28-32); Mean Corpuscular Volume 87 fl (79-97); Platelet Count 160 K/mm3 (140-440); Red Cell Distribution Width 14.1 % (13.2-15.2)
--- NOTE | 2017-12-11 01:04 | XRay Report ---
FINAL REPORT EXAM: XR CHEST ROUTINE 2V HISTORY: COUGH TECHNIQUE: PA and lateral views of the chest were submitted an are compared to the study of 11/27/2017. FINDINGS: The lungs are hyperinflated. There are no localized infiltrates or effusions. The lungs are not congested. The heart size is normal. The skeletal structures do not show any acute changes. IMPRESSION: Hyperinflation. No acute process in the chest.
[2017-12-11 01:10] LABS: BUN/Creatinine Ratio 30; Blood Urea Nitrogen 15 mg/dL (7-17); Calcium 8.2 mg/dL (8.4-10.2); Hemolysis Index 0
== END 2017-12-11 06:00 | disposition left against medical advice (07) ==
LOC: ED 00:08
DX: R05 Cough (principal); J40 Bronchitis, not specified as acute or chronic; Z53.21 Procedure and treatment not carried out due to patient leaving prior to being seen by health care provider
CPT/HCPCS: 36415; 71046; 80048; 85027

== ENCOUNTER 2017-12-12 23:35 | Emergency (ER) | payer SELFPAY ==
[2017-12-13 00:04] VITALS: BP 104/63
--- NOTE | 2017-12-13 03:21 | Emergency Department Report ---
ED General Adult HPI - General Chief complaint: Pain General Stated complaint: BODYACHE Time Seen by Provider: 12/13/17 02:58 Source: patient Mode of arrival: Ambulatory Limitations: No Limitations - History of Present Illness Initial comments: 52-year-old -[place] female comes in today complaining of 'I got bronchitis". Patient denies any fever chills or nausea or vomiting. She reports she is coughing up green stuff. Patient has had multiple visits history COPD. -: week(s) (1) - Related Data Home Medications Medication Instructions Recorded Confirmed Last Taken Aspirin [Aspirin BABY CHEW TAB] 81 mg PO DAILY 06/19/13 03/30/15 04/12/14 08:00 traMADol PO Q6H PRN 03/30/15 03/30/15 Unknown Previous Rx's Medication Instructions Recorded Last Taken Type Albuterol Sulfate [Proventil HFA] 1 - 2 puff IH Q4H PRN #1 hfa.aer.ad 06/12/14 Unknown Rx Albuterol Sulfate [Albuterol 0.63% 0.63 mg IH TID PRN 20 Days ml 03/31/15 Unknown Rx NEBS] Doxycycline [Vibramycin CAP] 100 mg PO Q12HR #14 capsule 03/31/15 Unknown Rx Ipratropium [Atrovent NEB] 0.5 mg IH Q6HRT 20 Days ml 03/31/15 Unknown Rx Permethrin 5% [Acticin 5% CREAM] 1 applicatio TP ONCE #3 tube 03/31/15 Unknown Rx methylPREDNISolone [Medrol Dose 0 mg PO QAM #1 pack 03/31/15 Unknown Rx Markos] Cetirizine HCl [ZyrTEC] 10 mg PO QDAY #14 capsule 03/02/17 Unknown Rx Fluticasone [Flonase] 1 spray NS QDAY #1 bottle 03/02/17 Unknown Rx Hydroxyzine HCl 25 mg PO BID #14 tablet 03/14/17 Unknown Rx Triamcinolone 0.1% [Kenalog 0.1% 1 applic TP TID #1 tube 03/14/17 Unknown Rx CREAM] Permethrin [Elimite] 60 gm TP ONCE #1 tube 03/15/17 Unknown Rx Albuterol Sulfate [Proair 90 mcg IH Q4-6H PRN #1 aer.pow.ba 05/18/17 Unknown Rx Respiclick] Ibuprofen Oral Liqd [Motrin Oral 600 mg PO TID PRN #1 bottle 05/18/17 Unknown Rx Liq 100 mg/5 ml] Fluticasone [Flonase] 1 spray NS QDAY #1 bottle 06/11/17 Unknown Rx Loratadine 10 mg PO DAILY #30 tablet 06/11/17 Unknown Rx Nebulizer Accessories [Aeroneb Go] 1 each MC PRN #1 each 06/11/17 Unknown Rx Nitrofurantoin Monohyd/M-Cryst 100 mg PO BID #14 capsule 10/25/17 Unknown Rx [Macrobid 100 mg Capsule] ALBUTEROL Inhaler [ProAir HFA 2 puff IH QID PRN #1 inhalation 11/13/17 Unknown Rx Inhaler] ALBUTEROL Inhaler [ProAir HFA 2 puff IH QID PRN #1 inhalation 11/13/17 Unknown Rx Inhaler] ALBUTEROL NEB's [Proventil 0.083% 2.5 mg IH QID PRN #25 each 11/13/17 Unknown Rx NEBS] Budesoni/Formotero 160-4.5(Nf) 2 puff IH BID #1 inha 11/13/17 Unknown Rx [Symbicort 160-4.5 (Nf)] Acetaminophen [Acetaminophen TAB] 500 mg PO Q6HR PRN #20 tablet 11/27/17 Unknown Rx predniSONE [Deltasone] 40 mg PO BID #10 tablet 11/27/17 Unknown Rx Cephalexin [Keflex] 500 mg PO Q12HR #10 cap 12/01/17 Unknown Rx Ibuprofen [Motrin 600 MG tab] 600 mg PO Q8H PRN #12 tablet 12/01/17 Unknown Rx Albuterol Sulfate [Ventolin Hfa] 1 puff IH Q4H PRN #1 hfa.aer.ad 12/13/17 Unknown Rx Cephalexin [Keflex] 500 mg PO BID #20 capsule 12/13/17 Unknown Rx Ibuprofen Oral Liqd [Motrin Oral 600 mg PO TID PRN 10 Days #30 12/13/17 Unknown Rx Liq 100 mg/5 ml] bottle guaiFENesin/DM 100/10MG 5 ml PO Q8H PRN #120 ml 12/13/17 Unknown Rx [Robitussin Dm] Allergies Allergy/AdvReac Type Severity Reaction Status Date / Time milk Allergy Swelling Verified 12/31/14 07:57 Penicillins Allergy Itching Verified 12/31/14 07:57 strawberry [[place]] Allergy Rash Verified 12/31/14 07:57 Sulfa (Sulfonamide Allergy Itching Verified 12/31/14 07:57 Antibiotics) ED Review of Systems ROS: Stated complaint: BODYACHE Other details as noted in HPI Constitutional: denies: chills, fever Eyes: denies: eye pain, eye discharge, vision change ENT: denies: ear pain, throat pain Respiratory: cough Cardiovascular: denies: chest pain, palpitations Endocrine: no symptoms reported Gastrointestinal: denies: abdominal pain, nausea, diarrhea Genitourinary: denies: urgency, dysuria, discharge Musculoskeletal: denies: back pain, joint swelling, arthralgia Skin: denies: rash, lesions Neurological: denies: headache, weakness, paresthesias Psychiatric: denies: anxiety, depression Hematological/Lymphatic: denies: easy bleeding, easy bruising 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) Additional medical history: Anemia, A-fib, sinus problems - Surgical History Past Surgical History?: Yes Additional Surgical History: wisdom teeth removed - Social History Smoking Status: Never Smoker Substance Use Type: None - Medications Home Medications: Home Medications Medication Instructions Recorded Confirmed Last Taken Type Aspirin [Aspirin BABY CHEW TAB] 81 mg PO DAILY 06/19/13 03/30/15 04/12/14 08:00 History Albuterol Sulfate [Proventil HFA] 1 - 2 puff IH Q4H PRN #1 hfa.aer.ad 06/12/14 03/30/15 Unknown Rx traMADol PO Q6H PRN 03/30/15 03/30/15 Unknown History Albuterol Sulfate [Albuterol 0.63% 0.63 mg IH TID PRN 20 Days ml 03/31/15 Unknown Rx NEBS] Doxycycline [Vibramycin CAP] 100 mg PO Q12HR #14 capsule 03/31/15 Unknown Rx Ipratropium [Atrovent NEB] 0.5 mg IH Q6HRT 20 Days ml 08/12/15 Unknown Rx Permethrin 5% [Acticin 5% CREAM] 1 applicatio TP ONCE #3 tube 03/31/15 Unknown Rx methylPREDNISolone [Medrol Dose 0 mg PO QAM #1 pack 03/31/15 Unknown Rx Markos] Cetirizine HCl [ZyrTEC] 10 mg PO QDAY #14 capsule 03/02/17 Unknown Rx Fluticasone [Flonase] 1 spray NS QDAY #1 bottle 03/02/17 Unknown Rx Hydroxyzine HCl 25 mg PO BID #14 tablet 03/14/17 Unknown Rx Triamcinolone 0.1% [Kenalog 0.1% 1 applic TP TID #1 tube 03/14/17 Unknown Rx CREAM] Permethrin [Elimite] 60 gm TP ONCE #1 tube 03/15/17 Unknown Rx Albuterol Sulfate [Proair 90 mcg IH Q4-6H PRN #1 aer.pow.ba 05/18/17 Unknown Rx Respiclick] Ibuprofen Oral Liqd [Motrin Oral 600 mg PO TID PRN #1 bottle 05/18/17 Unknown Rx Liq 100 mg/5 ml] Fluticasone [Flonase] 1 spray NS QDAY #1 bottle 06/11/17 Unknown Rx Loratadine 10 mg PO DAILY #30 tablet 06/11/17 Unknown Rx Nebulizer Accessories [Aeroneb Go] 1 each PRN #1 each 06/11/17 Unknown Rx Nitrofurantoin Monohyd/M-Cryst 100 mg PO BID #14 capsule 10/25/17 Unknown Rx [Macrobid 100 mg Capsule] ALBUTEROL Inhaler [ProAir HFA 2 puff IH QID PRN #1 inhalation 11/13/17 Unknown Rx Inhaler] ALBUTEROL Inhaler [ProAir HFA 2 puff IH QID PRN #1 inhalation 11/13/17 Unknown Rx Inhaler] ALBUTEROL NEB's [Proventil 0.083% 2.5 mg IH QID PRN #25 each 11/13/17 Unknown Rx NEBS] Budesoni/Formotero 160-4.5(Nf) 2 puff IH BID #1 inha 11/13/17 Unknown Rx [Symbicort 160-4.5 (Nf)] Acetaminophen [Acetaminophen TAB] 500 mg PO Q6HR PRN #20 tablet 11/27/17 Unknown Rx predniSONE [Deltasone] 40 mg PO BID #10 tablet 11/27/17 Unknown Rx Cephalexin [Keflex] 500 mg PO Q12HR #10 cap 12/01/17 Unknown Rx Ibuprofen [Motrin 600 MG tab] 600 mg PO Q8H PRN #12 tablet 12/01/17 Unknown Rx Albuterol Sulfate [Ventolin Hfa] 1 puff IH Q4H PRN #1 hfa.aer.ad 12/13/17 Unknown Rx Cephalexin [Keflex] 500 mg PO BID #20 capsule 12/13/17 Unknown Rx Ibuprofen Oral Liqd [Motrin Oral 600 mg PO TID PRN 10 Days #30 12/13/17 Unknown Rx Liq 100 mg/5 ml] bottle guaiFENesin/DM 100/10MG 5 ml PO Q8H PRN #120 ml 12/13/17 Unknown Rx [Robitussin Dm] ED Physical Exam - General Limitations: No Limitations General appearance: alert, in no apparent distress - Head Head exam: Present: atraumatic, normocephalic - Eye Eye exam: Present: normal appearance - ENT ENT exam: Present: mucous membranes moist - Neck Neck exam: Present: normal inspection - Respiratory Respiratory exam: Present: normal lung sounds bilaterally. Absent: respiratory distress - Cardiovascular Cardiovascular Exam: Present: regular rate, normal rhythm. Absent: systolic murmur, diastolic murmur, rubs, gallop - GI/Abdominal GI/Abdominal exam: Present: soft, normal bowel sounds - Extremities Exam Extremities exam: Present: normal inspection - Back Exam Back exam: Present: normal inspection - Neurological Exam Neurological exam: Present: alert, oriented X3 - Psychiatric Psychiatric exam: Present: normal affect, normal mood - Skin Skin exam: Present: warm, dry, intact, normal color. Absent: rash ED Course Vital Signs 12/12/17 23:59 Temperature 97.5 F L Pulse Rate 93 H Respiratory 18 Rate Blood Pressure 104/63 O2 Sat by Pulse 99 Oximetry ED Medical Decision Making - Radiology Data Radiology results: report reviewed, image reviewed X-ray completed on 12/11/2017 shows no acute processes. - Medical Decision Making Patient's been evaluated by this provider fast track. I discussed the patient that she's had multiple visits that she does not wait to be evaluated. Patient complains that she cannot wait for ever to be seen. Patient has been here for , 12/10, 12/11, and 12/12. I discussed patient that her chest x-ray that was done on the with no acute processes. Patient is adamant that she has bronchitis. I would discharge patient on Robitussin-DM, Keflex 500 mg twice a day, albuterol inhaler, she is to follow-up with her primary care provider. Critical care attestation.: If time is entered above; I have spent that time in minutes in the direct care of this critically ill patient, excluding procedure time. ED Disposition Clinical Impression: Bronchitis Disposition: DC- TO HOME OR SELFCARE Is pt being admited?: No Does the pt Need Aspirin: No Condition: Stable Instructions: Chronic Bronchitis (ED) Additional Instructions: Complete antibiotics as prescribed. Follow up with her primary care provider for further evaluation and management. Prescriptions: Albuterol Sulfate [Ventolin Hfa] 1 puff IH Q4H PRN #1 hfa.aer.ad PRN Reason: Wheezing Cephalexin [Keflex] 500 mg PO BID #20 capsule guaiFENesin/DM 100/10MG [Robitussin Dm] 5 ml PO Q8H PRN #120 ml PRN Reason: Cough Ibuprofen Oral Liqd [Motrin Oral Liq 100 mg/5 ml] 600 mg PO TID PRN 10 Days #30 bottle PRN Reason: Pain Referrals: PRIMARY CARE, [Primary Care Provider] - 3-5 Days
== END 2017-12-13 03:25 | disposition home or self-care (01) ==
LOC: ED 23:35
DX: J40 Bronchitis, not specified as acute or chronic (principal); I10 Essential (primary) hypertension; E11.9 Type 2 diabetes mellitus without complications; J45.909 Unspecified asthma, uncomplicated; J44.9 Chronic obstructive pulmonary disease, unspecified; Z86.73 Personal history of transient ischemic attack (TIA), and cerebral infarction without residual deficits; Z88.0 Allergy status to penicillin; Z88.2 Allergy status to sulfonamides; Z91.011 Allergy to milk products; Z91.018 Allergy to other foods
CPT/HCPCS: 99282

== ENCOUNTER 2017-12-23 03:06 | Emergency (ER) | payer SELFPAY ==
[2017-12-23 05:15] VITALS: BP 97/64
[2017-12-23 06:23] LABS: Basophils % (Auto) 0.3 % (0.0-1.8); Eosinophils # (Auto) 0.1 K/mm3 (0.0-0.4); Eosinophils % (Auto) 2.2 % (0.0-4.3); Hemoglobin 11.9 gm/dl (10.1-14.3); Lymphocytes # (Auto) 1.3 K/mm3 (1.2-5.4); Mean Corpuscular HGB Conc 33 % (30-34); Mean Corpuscular Hemoglobin 29 pg (28-32); Mean Corpuscular Volume 86 fl (79-97); Monocytes # (Auto) 0.5 K/mm3 (0.0-0.8); Monocytes % (Auto) 10.9 % (0.0-7.3); Platelet Count 197 K/mm3 (140-440); Red Blood Count 4.18 M/mm3 (3.65-5.03); Red Cell Distribution Width 14.1 % (13.2-15.2)
[2017-12-23 07:00] LABS: BUN/Creatinine Ratio 27; Blood Urea Nitrogen 16 mg/dL (7-17); Hemolysis Index 5
[2017-12-23 07:51] LABS: Bacteria,Urine 1+ /HPF (Negative); Bilirubin,Urine NEG (Negative); Blood,Urine NEG (Negative); Color,Urine Yellow (Yellow); Mucus,Urine 2+ /HPF; Urobilinogen,Urine < 2.0 mg/dL (<2.0)
== END 2017-12-23 10:39 ==
LOC: ED 03:06
DX: N93.9 Abnormal uterine and vaginal bleeding, unspecified (principal); Z53.21 Procedure and treatment not carried out due to patient leaving prior to being seen by health care provider
CPT/HCPCS: 36415; 80048; 81001; 85025

== ENCOUNTER 2017-12-31 01:12 | Emergency (ER) | payer SELFPAY ==
[2017-12-31 01:25] VITALS: BP 111/84
== END 2017-12-31 01:50 | disposition left against medical advice (07) ==
LOC: ED 01:12
DX: M54.2 Cervicalgia (principal); Z53.21 Procedure and treatment not carried out due to patient leaving prior to being seen by health care provider
CPT/HCPCS: 82962

== ENCOUNTER 2018-01-03 21:44 | Emergency (ER) | payer SELFPAY ==
[2018-01-03 22:16] VITALS: BP 110/65
[2018-01-03] MEDS ORDERED: TYLENOL ONE (22:16)
[2018-01-03] MEDS ORDERED: TYLENOL PO ONE (22:16)
== END 2018-01-04 02:30 | disposition left against medical advice (07) ==
LOC: ED 21:44
DX: M79.673 Pain in unspecified foot (principal); Z53.21 Procedure and treatment not carried out due to patient leaving prior to being seen by health care provider

== ENCOUNTER 2018-01-20 02:58 | Emergency (ER) | payer SELFPAY ==
[2018-01-20 05:31] VITALS: BP 106/71
== END 2018-01-20 06:43 | disposition left against medical advice (07) ==
LOC: ED 02:58
DX: R51 Headache (principal); R06.02 Shortness of breath; Z88.0 Allergy status to penicillin; Z88.2 Allergy status to sulfonamides; Z53.21 Procedure and treatment not carried out due to patient leaving prior to being seen by health care provider

== ENCOUNTER 2018-01-29 00:57 | Emergency (ER) | payer SELFPAY ==
[2018-01-29] MEDS ORDERED: DUONEB *Not for PRN Use IH ONE (04:06)
[2018-01-29 04:47] VITALS: BP 100/61
[2018-01-29] MEDS ORDERED: NACL 0.9% 1000 ML 1,000 ML IV ONE (04:47)
[2018-01-29 05:45] LABS: Basophils % (Auto) 0.2 % (0.0-1.8); Eosinophils # (Auto) 0.1 K/mm3 (0.0-0.4); Eosinophils % (Auto) 3.4 % (0.0-4.3); Hematocrit 36.2 % (30.3-42.9); Hemoglobin 11.7 gm/dl (10.1-14.3); Lymphocytes # (Auto) 1.1 K/mm3 (1.2-5.4); Lymphocytes % (Auto) 30.3 % (13.4-35.0); Mean Corpuscular HGB Conc 32 % (30-34); Mean Corpuscular Hemoglobin 28 pg (28-32); Mean Corpuscular Volume 87 fl (79-97); Monocytes # (Auto) 0.4 K/mm3 (0.0-0.8); Platelet Count 153 K/mm3 (140-440); Red Blood Count 4.17 M/mm3 (3.65-5.03); Red Cell Distribution Width 14.1 % (13.2-15.2)
[2018-01-29 05:54] LABS: INR 0.95 (0.87-1.13)
[2018-01-29 06:06] LABS: Alanine Aminotransferase 15 units/L (7-56); BUN/Creatinine Ratio 20; Blood Urea Nitrogen 12 mg/dL (7-17); Calcium 8.5 mg/dL (8.4-10.2); Hemolysis Index 2; Lipase 25 units/L (13-60)
== END 2018-01-29 10:15 ==
LOC: ED 00:57
DX: R06.02 Shortness of breath (principal); Z53.21 Procedure and treatment not carried out due to patient leaving prior to being seen by health care provider
CPT/HCPCS: 36415; 80053; 82803; 83690; 85025; 85610; 85730; 93005; 93010; 94640

== ENCOUNTER 2018-01-31 00:15 | Emergency (ER) | payer SELFPAY ==
[2018-01-31 02:38] VITALS: BP 105/69
== END 2018-01-31 02:27 | disposition left against medical advice (07) ==
LOC: ED 00:15
DX: M79.1 Myalgia (principal); Z53.21 Procedure and treatment not carried out due to patient leaving prior to being seen by health care provider

== ENCOUNTER 2018-02-11 01:27 | Emergency (ER) | payer SELFPAY ==
[2018-02-11 01:39] VITALS: BP 92/54
== END 2018-02-11 09:07 | disposition left against medical advice (07) ==
LOC: ED 01:27
DX: R06.02 Shortness of breath (principal); R06.2 Wheezing; Z53.21 Procedure and treatment not carried out due to patient leaving prior to being seen by health care provider

== ENCOUNTER 2019-02-28 19:42 | Inpatient (IN) | payer OTHER ==
--- NOTE | 2019-02-28 20:00 | Event Note ---
ED Screening Note ED Screening Note: pt states that she has been feeling thirsty had a possible syncopal episode, was found in the car by EMS +lightheaded no N/V/D +urinary frequency pt is homeless has been in her car since 02/25/19 PMHx DM is not on meds, anemia bilateral BKA This initial assessment/diagnostic orders/clinical plan/treatment(s) is/are subject to change based on patients health status, clinical progression and re- assessment by fellow clinical providers in the ED. Further treatment and workup at subsequent clinical providers discretion. Patient/guardian urged not to elope from the ED as their condition may be serious if not clinically assessed and managed. Initial orders include: labs, EKG, Ct head BG 132 in triage
[2019-02-28 20:53] LABS: Alanine Aminotransferase 20 units/L (7-56); Albumin 4.5 g/dL (3.9-5); BUN/Creatinine Ratio 34; Blood Urea Nitrogen 54 mg/dL (7-17); Calcium 9.5 mg/dL (8.4-10.2); Hemolysis Index 11
--- NOTE | 2019-02-28 21:04 | Cat Scan Report ---
CT BRAIN: 02/28/2019 INDICATION / CLINICAL INFORMATION: MAIN: Patient states here for diabetes. COMPARISON: 06/08/2012 FINDINGS: BRAIN/INTRACRANIAL STRUCTURES: Unenhanced CT images of the brain were obtained and compared to a prio r exam from 06/08/2012. There is no evidence of acute intracranial abnormality. Ventricles and sulci are within normal limits of size and shape for a patient of this age. There is no evidence of acute ischemic injury, hemorrhage, or parenchymal mass. There is a partially calcified soft tissue nodule along the superior aspect of the left anterior clin oid, which measures approximately 10 mm in diameter. This may represent a small meningioma, which I w ould consider to be of unlikely acute clinical significance. When compared to the prior exam from 7 y ears earlier, this possible meningioma has increased in size slightly, previously measuring 5 mm. For further anatomic evaluation, unenhanced and enhanced MRI of the brain could be performed, as clinica lly indicated. EXTRACRANIAL STRUCTURES: Unremarkable. IMPRESSION: 1. No evidence of acute intracranial abnormality. 2. 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 All CT scans at this location are performed using dose reduction to ALARA by means of automated expos ure control. Signer Name: Alexis Irving MD Signed: 02/28/2019 8:59 PM Workstation Name: [id number]
[2019-02-28 21:22] LABS: Hematocrit 48.7 % (30.3-42.9); Hemoglobin 15.5 gm/dl (10.1-14.3); Mean Corpuscular HGB Conc 32 % (30-34); Mean Corpuscular Volume 92 fl (79-97); Red Blood Count 5.29 M/mm3 (3.65-5.03); Red Cell Distribution Width 15.2 % (13.2-15.2)
[2019-02-28 21:23] LABS: Platelet Count 187 K/mm3 (140-440)
[2019-02-28] MEDS ORDERED: NACL 0.9% 1000 ML 1,000 ML IV ONE (23:35)
--- NOTE | 2019-02-28 23:43 | Emergency Department Report ---
ED Syncope HPI - General Chief Complaint: Syncope Stated Complaint: HEAT EXHAUSTION Time Seen by Provider: 02/28/19 19:56 Source: patient Exam Limitations: no limitations - History of Present Illness Initial Comments: Patient is a 53-year-old female that presents emergency with complaints of dizziness, lightheaded and syncope. Patient states she's been sleeping in her car lately and the car has been extremely hot over the past few days and patient passed out while laying down. Patient states she feels dehydrated. Patient states she is thirsty and has a dry mouth. Patient denies chest pain shortness of breath. Patient states she is not sure how long her syncopal episode was 4. Patient denies trauma. Patient has a complex long past medical history. Timing/Prior Episodes: single episode today Precipitating Factors: Positive: blurred vision, lightheadedness, rapid heart beat. Negative: confusion, diaphoresis Loss of Consciousness: brief (seconds) Current Symptoms: lightheadedness - Related Data Allergies/Adverse Reactions: Allergies milk Allergy (Verified 12/31/14 07:57) Swelling Penicillins Allergy (Verified 12/31/14 07:57) Itching shellfish derived Allergy (Verified 02/11/18 01:46) Shortness of Breath strawberry [[place]] Allergy (Verified 12/31/14 07:57) Rash Sulfa (Sulfonamide Antibiotics) Allergy (Verified 12/31/14 07:57) Itching Home Medications: Ambulatory Orders Aspirin [Aspirin BABY CHEW TAB] 81 mg PO DAILY 06/19/13 Budesoni/Formotero 160-4.5(Nf) [Symbicort 160-4.5 (Nf)] 2 puff IH BID #1 inha 11/13/17 Albuterol Sulfate [Ventolin Hfa] 1 puff IH Q4H PRN #1 hfa.aer.ad 12/13/17 ED Review of Systems ROS: Stated complaint: HEAT EXHAUSTION Other details as noted in HPI Constitutional: malaise, weakness. denies: chills, fever Eyes: denies: eye pain, eye discharge, vision change ENT: denies: ear pain, throat pain Respiratory: denies: cough, shortness of breath, wheezing Cardiovascular: denies: chest pain, palpitations Endocrine: no symptoms reported Gastrointestinal: denies: abdominal pain, nausea, diarrhea Genitourinary: denies: urgency, dysuria, discharge Musculoskeletal: denies: back pain, joint swelling, arthralgia Skin: denies: rash, lesions Neurological: weakness. 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 bron chitis - Surgical History Past Surgical History?: Yes Additional Surgical History: wisdom teeth removed - Family History Family history: no significant - Social History Smoking Status: Never Smoker Substance Use Type: None - Medications Home Medications: Home Medications Medication Instructions Recorded Confirmed Last Taken Type Aspirin [Aspirin BABY CHEW TAB] 81 mg PO DAILY 06/19/13 07/31/18 07/31/18 History Budesoni/Formotero 160-4.5(Nf) 2 puff IH BID #1 inha 11/13/17 07/31/18 07/31/18 Rx [Symbicort 160-4.5 (Nf)] Albuterol Sulfate [Ventolin Hfa] 1 puff IH Q4H PRN #1 hfa.aer.ad 12/13/17 07/31/18 Unknown Rx ED Physical Exam - General Limitations: Physical Limitation General appearance: alert, in no apparent distress - Head Head exam: Present: atraumatic, normocephalic - Eye Eye exam: Present: normal appearance - ENT ENT exam: Present: mucous membranes moist - Neck Neck exam: Present: normal inspection - Respiratory Respiratory exam: Present: normal lung sounds bilaterally. Absent: respiratory distress - Cardiovascular Cardiovascular Exam: Present: regular rate, normal rhythm. Absent: systolic murmur, diastolic murmur, rubs, gallop - GI/Abdominal GI/Abdominal exam: Present: soft, normal bowel sounds - Extremities Exam Extremities exam: Present: normal inspection - Back Exam Back exam: Present: normal inspection - Neurological Exam Neurological exam: Present: alert, oriented X3 - Psychiatric Psychiatric exam: Present: normal affect, normal mood - Skin Skin exam: Present: warm, dry, intact, normal color. Absent: rash ED Course Vital Signs 02/28/19 02/28/19 02/28/19 19:57 23:38 23:45 Temperature 98.7 F Pulse Rate 142 H 99 H Respiratory 14 18 Rate Blood Pressure 116/74 108/71 O2 Sat by Pulse 96 94 95 Oximetry 03/01/19 03/01/19 03/01/19 00:00 00:15 00:30 Temperature Pulse Rate 100 H 111 H 92 H Respiratory 17 13 18 Rate Blood Pressure 115/73 115/73 103/67 O2 Sat by Pulse 94 97 96 Oximetry 03/01/19 03/01/19 03/01/19 00:45 01:00 01:15 Temperature Pulse Rate 90 87 93 H Respiratory 16 15 18 Rate Blood Pressure 103/67 103/67 100/66 O2 Sat by Pulse 94 95 96 Oximetry 03/01/19 01:30 Temperature Pulse Rate 94 H Respiratory 12 Rate Blood Pressure 98/67 O2 Sat by Pulse 97 Oximetry - Reevaluation(s) Reevaluation #1: Discussed all results with patient. Patient will be admitted to the hospitalist service. Patient agrees to plan of care. 02/28/19 23:56 - Consultations Consultation #1: Hospitalist consulted for admission. Hospitalist to admit patient. Hospitalist to assume care patient. 02/28/19 23:56 ED Medical Decision Making - Lab Data Result diagrams: 02/28/19 20:10 02/28/19 20:10 - EKG Data -: EKG Interpreted by Al EKG shows normal: sinus rhythm, axis, intervals, QRS complexes, ST-T waves Rate: tachycardia - Radiology Data Radiology results: report reviewed CT BRAIN: 02/28/2019 INDICATION / CLINICAL INFORMATION: MAIN: Patient states here for diabetes. COMPARISON: 06/08/2012 FINDINGS: BRAIN/INTRACRANIAL STRUCTURES: Unenhanced CT images of the brain were obtained and compared to a prior exam from 06/08/2012. There is no evidence of acute intracranial abnormality. Ventricles and sulci are within normal limits of size and shape for a patient of this age. There is no evidence of acute ischemic injury, hemorrhage, or parenchymal mass. There is a partially calcified soft tissue nodule along the superior aspect of the left anterior clinoid, which measures approximately 10 mm in diameter. This may represent a small meningioma, which I would consider to be of unlikely acute clinical significance. When co mpared to the prior exam from 7 years earlier, this possible meningioma has increased in size sligh tly, previously measuring 5 mm. For further anatomic evaluation, unenhanced and enhanced MRI of the brain could be performed, as clinically indicated. EXTRACRANIAL STRUCTURES: Unremarkable. IMPRESSION: 1. No evidence of acute intracranial abnormality. 2. 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 - Medical Decision Making Patient is a 53-year-old emergency room with syncope and dizziness and lightheadedness. Patient found to have heat stroke and heat syncope. Patient's labs unremarkable except for acute renal failure, multiple abnormalities of electrolytes, metabolic acidosis, and rhabdomyolysis. Patient given fluids. Patient's initial vital signs show tachycardia. EKG also shows sinus tachycardia. Patient our great improvement with fluids. Patient will be admitted to the hospitalist service for evaluation treatment. - Differential Diagnosis syncope. Rhabdo.. Critical Care Time: Yes Critical care attestation.: If time is entered above; I have spent that time in minutes in the direct care of this critically ill patient, excluding procedure time. Critical Care Time: 35 minutes ED Disposition Clinical Impression: Dehydration, Hypernatremia Rhabdomyolysis Qualifiers: Rhabdomyolysis type: non-traumatic Qualified Code(s): M62.82 - Rhabdomyolysis Renal failure Qualifiers: Renal failure chronicity: acute Acute renal failure type: unspecified Qualified Code(s): N17.9 - Acute kidney failure, unspecified Syncope Qualifiers: Syncope type: heat syncope Encounter type: initial encounter Qualified Code(s): T67.1XXA - Heat syncope, initial encounter Heat stroke Qualifiers: Encounter type: initial encounter Qualified Code(s): T67.0XXA - Heatstroke and sunstroke, initial encounter Disposition: OP ADMIT IP TO THIS HOSP Is pt being admited?: Yes Does the pt Need Aspirin: No Condition: Critical Time of Disposition: 23:56
[2019-03-01] MEDS ORDERED: SODIUM CHLORIDE FLUSH SYRINGE 10 ML IV PRN (00:35)
[2019-03-01] MEDS ORDERED: MORPHINE IV PRN (00:35)
[2019-03-01] MEDS ORDERED: NORCO 5/325 PO PRN (00:35)
[2019-03-01] MEDS ORDERED: ZOFRAN IV PRN (00:35)
--- NOTE | 2019-03-01 01:37 | History and Physical Report ---
History of Present Illness Date of examination: 03/01/19 Date of admission: 03/01/19 00:35 Chief complaint: Lightheadedness History of present illness: Patient is a 53-year-old -Faro[place] female with history of DM2 and COPD who presented to the ED on account of a day history of lightheadedness. Patient stated that she had been sleeping in her car for about 4 days because she was not getting along with her aunt whom she lives with. Subsequently she started experiencing lightheadedness with associated presyncope. She denies headaches, nausea, vomiting, cough, fever, chills, chest pain, shortness of breath, leg swelling, orthopnea or PND. No abdominal pain, dysuria, frequency, constipation or diarrhea. Past History Past Medical History: COPD, diabetes Past Surgical History: Other (bilateral BKA ) Social history: other (she denies tobacco, alcohol or illicit drug use) Family history: other (no known family history of diabetes, hypertension or heart disease.) Medications and Allergies Allergies Allergy/AdvReac Type Severity Reaction Status Date / Time milk Allergy Swelling Verified 12/31/14 07:57 Penicillins Allergy Itching Verified 12/31/14 07:57 shellfish derived Allergy Shortness Verified 02/11/18 01:46 of Breath strawberry [[place]] Allergy Rash Verified 12/31/14 07:57 Sulfa (Sulfonamide Allergy Itching Verified 12/31/14 07:57 Antibiotics) Home Medications Medication Instructions Recorded Confirmed Last Taken Type Aspirin [Aspirin BABY CHEW TAB] 81 mg PO DAILY 06/19/13 07/31/18 07/31/18 History Budesoni/Formotero 160-4.5(Nf) 2 puff IH BID #1 inha 11/13/17 07/31/18 07/31/18 Rx [Symbicort 160-4.5 (Nf)] Albuterol Sulfate [Ventolin Hfa] 1 puff IH Q4H PRN #1 hfa.aer.ad 12/13/17 07/31/18 Unknown Rx Active Meds: Active Medications Acetaminophen (Tylenol) 650 mg PO Q4H PRN PRN Reason: Pain MILD(1-3)/Fever >100.5/THOMAS Acetaminophen/Hydrocodone Bitart ([place] 5/325) 1 each PO Q6H PRN PRN Reason: Pain, Moderate (4-6) Docusate Sodium (Colace) 100 mg PO BID [facility] Heparin Sodium (Porcine) (Heparin) 5,000 unit SUB-Q Q12HR [facility] Sodium Chloride (Nacl 0.45% 1000 Ml) 1,000 mls @ 125 mls/hr IV DIRECT CHRISTAL Morphine Sulfate (Morphine) 2 mg IV Q4H PRN PRN Reason: Pain, Moderate (4-6) Ondansetron HCl (Zofran) 4 mg IV Q8H PRN PRN Reason: Nausea And Vomiting Sodium Chloride (Sodium Chloride Flush Syringe 10 Ml) 10 ml IV BID CHRISTAL Sodium Chloride (Sodium Chloride Flush Syringe 10 Ml) 10 ml IV PRN PRN PRN Reason: LINE FLUSH Review of Systems All systems: negative (except as documented in the HPI, 14 point system reviewed were negative) Exam - Constitutional Vitals: Temp Pulse Resp BP Pulse Ox 98.7 F 142 H 14 116/74 96 02/28/19 19:57 02/28/19 19:57 02/28/19 19:57 02/28/19 19:57 02/28/19 19:57 General appearance: Present: no acute distress, cachectic - EENT Eyes: Present: PERRL, EOM intact ENT: hearing intact, clear oral mucosa, other (dry buccal mucosa) - Neck Neck: Present: supple, normal ROM - Respiratory Respiratory effort: normal Respiratory: bilateral: CTA - Cardiovascular Rhythm: regular Heart Sounds: Present: S1 & S2. Absent: rub, click - Extremities Extremity abnormal: other (bilateral BKA ) - Abdominal General gastrointestinal: Present: soft, non-tender, non-distended, normal bowel sounds Female genitourinary: Present: deferred - Integumentary Integumentary: Present: warm, erythema (with draining ulcer on the LT knee) - Musculoskeletal Musculoskeletal: generalized weakness - Psychiatric Psychiatric: appropriate mood/affect, intact judgment & insight - Neurologic Neurologic: CNII-XII intact, moves all extremities Results - Labs CBC & Chem 7: 02/28/19 20:10 02/28/19 20:10 Labs: Laboratory Last Values WBC 11.0 K/mm3 (4.5-11.0) 02/28/19 20:10 RBC 5.29 M/mm3 (3.65-5.03) H 02/28/19 20:10 Hgb 15.5 gm/dl (10.1-14.3) H 02/28/19 20:10 Hct 48.7 % (30.3-42.9) H 02/28/19 20:10 MCV 92 fl (79-97) 02/28/19 20:10 MCH 29 pg (28-32) 02/28/19 20:10 MCHC 32 % (30-34) 02/28/19 20:10 RDW 15.2 % (13.2-15.2) 02/28/19 20:10 Plt Count 187 K/mm3 (140-440) 02/28/19 20:10 Lymph % (Auto) Grocery Clerk Selling 02/28/19 20:10 Rhea % (Auto) Grocery Clerk Selling 02/28/19 20:10 Eos % (Auto) Grocery Clerk Selling 02/28/19 20:10 Baso % (Auto) Grocery Clerk Selling 02/28/19 20:10 Lymph # Grocery Clerk Selling 02/28/19 20:10 Rhea # Grocery Clerk Selling 02/28/19 20:10 Eos # Grocery Clerk Selling 02/28/19 20:10 Baso # Grocery Clerk Selling 02/28/19 20:10 Seg Neutrophils % Grocery Clerk Selling 02/28/19 20:10 Seg Neutrophils # Grocery Clerk Selling 02/28/19 20:10 Sodium 152 mmol/L (137-145) H 02/28/19 20:10 Potassium 3.7 mmol/L (3.6-5.0) 02/28/19 20:10 Chloride 111.1 mmol/L (98-107) H 02/28/19 20:10 Carbon Dioxide 18 mmol/L (22-30) L 02/28/19 20:10 27 mmol/L 02/28/19 20:10 BUN 54 mg/dL (7-17) H 02/28/19 20:10 1.6 mg/dL (0.7-1.2) H 02/28/19 20:10 Estimated GFR 41 ml/min 02/28/19 20:10 34 % 02/28/19 20:10 Glucose 137 mg/dL (65-100) H 02/28/19 20:10 POC Glucose 132 (70-105) H 02/28/19 20:10 Calcium 9.5 mg/dL (8.4-10.2) 02/28/19 20:10 Phosphorus 4.90 mg/dL (2.5-4.5) H 02/28/19 20:10 Magnesium 2.80 mg/dL (1.7-2.3) H 02/28/19 20:10 0.50 mg/dL (0.1-1.2) 02/28/19 20:10 AST 32 units/L (5-40) 02/28/19 20:10 ALT 20 units/L (7-56) 02/28/19 20:10 162 units/L (35-129) H 02/28/19 20:10 955 units/L (30-135) H 02/28/19 20:10 < 0.010 ng/mL (0.00-0.029) 02/28/19 20:10 NT-Pro-B Natriuret Pep 423.5 pg/mL (0-900) 02/28/19 20:10 10.5 g/dL (6.3-8.2) H 02/28/19 20:10 4.5 g/dL (3.9-5) 02/28/19 20:10 0.8 % 02/28/19 20:10 TSH 0.439 mlU/mL (0.270-4.200) 02/28/19 20:10 - Imaging and Cardiology CT Scan - head: report reviewed Assessment and Plan Assessment and plan: Rhabdomyolysis -On IV fluid, will monitor CK level. DAVID -Likely vasomotor nephropathy 2/2 Rhabdomyolysis -On IV fluid, will monitor creatinine level Hypernatremia -Likely secondary to dehydration -On IV fluids, will monitor sodium level Left knee cellulitis -On IV antibiotic -Left knee x-ray pending -Wound care nurse consulted Metabolic acidosis -Likely due to the renal impairment -On IV fluid, will monitor bicarbonate level Elevated H&H -Likely due to hemoconcentration -On IVF, will monitor Hyperphosphatemia and hypermagnesemia -Likely secondary to dehydration -We'll hydrate patient and monitor levels Elevated alkaline phosphatase -We'll monitor level DM2 -Stable -On SSI COPD -No acute exacerbation -On PRN neb treatment DVT prophylaxis with heparin Disposition: Patient will be placed on inpatient status with plan for discharge when medically stable Time spent: 40 minutes
[2019-03-01] MEDS ORDERED: D50W (25GM) Syringe IV PRN (01:44)
--- NOTE | 2019-03-01 03:18 | XRay Report ---
LEFT KNEE, 3 VIEWS INDICATION / CLINICAL INFORMATION: LT knee ulcer. COMPARISON: None available. FINDINGS: B-K amputation. Generalized osteopenia. No acute fractures. No subcutaneous gas collections are identified. Signer Name: Frandy Peterson MD Signed: 03/01/2019 3:13 AM Workstation Name: [id number]
[2019-03-01] MEDS: NACL 0.45% 1000 ML 1,000 ML IV SCH ×2 (06:17→14:07)
[2019-03-01] MEDS: DOXYCYCLINE HYCLATE 100 MG in NACL 0.9% 250ML 250 ML IV SCH ×2 (06:34→17:58)
[2019-03-01] MEDS: HumuLIN R SUB-Q SCH ×4 (09:28→22:56)
[2019-03-01] MEDS: SODIUM CHLORIDE FLUSH SYRINGE 10 ML IV SCH ×2 (09:29→22:55)
[2019-03-01] MEDS: HEPARIN SUB-Q SCH ×2 (09:29→22:56)
[2019-03-01] MEDS: COLACE PO SCH ×2 (10:02→22:55)
[2019-03-01] MEDS: D5W 1,000 ML IV SCH (17:58)
[2019-03-01] MEDS ORDERED: VANCOMYCIN 750 MG in NACL 0.9% 500 ML 500 ML IV ONE (20:27)
[2019-03-01] MEDS ORDERED: VANCOMYCIN PHARMACY TO DOSE IV SCH (21:00)
[2019-03-01] MEDS ORDERED: VANCOMYCIN/NS 1 GM/250 ML 1 GM/250 ML BAG IV ONE (22:00)
[2019-03-02] MEDS ORDERED: NACL 0.9% 250ML 250 ML IV ONE ×2 (00:13→00:14)
[2019-03-02] MEDS ORDERED: K-DUR PO ONE (00:15)
[2019-03-02] MEDS: D5W 1,000 ML IV SCH ×2 (03:01→14:34)
[2019-03-02 06:12] LABS: Hematocrit 36.4 % (30.3-42.9); Mean Corpuscular HGB Conc 33 % (30-34); Mean Corpuscular Volume 91 fl (79-97); Platelet Count 153 K/mm3 (140-440); Red Blood Count 4.02 M/mm3 (3.65-5.03); Red Cell Distribution Width 14.2 % (13.2-15.2)
[2019-03-02] MEDS: DOXYCYCLINE HYCLATE 100 MG in NACL 0.9% 250ML 250 ML IV SCH ×2 (06:29→19:44)
[2019-03-02 06:31] LABS: Alanine Aminotransferase 23 units/L (7-56); Albumin 3.2 g/dL (3.9-5); BUN/Creatinine Ratio 28; Blood Urea Nitrogen 17 mg/dL (7-17); Calcium 8.2 mg/dL (8.4-10.2); Hemolysis Index 6
[2019-03-02 06:58] LABS: Bilirubin,Direct < 0.2 mg/dL (0-0.2)
[2019-03-02] MEDS: HumuLIN R SUB-Q SCH ×4 (08:29→22:11)
[2019-03-02] MEDS: SODIUM CHLORIDE FLUSH SYRINGE 10 ML IV SCH ×2 (09:13→21:10)
[2019-03-02] MEDS: HEPARIN SUB-Q SCH ×2 (09:13→21:10)
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
[2019-03-02] MEDS: VANCOMYCIN 750 MG in NACL 0.9% 250ML 250 ML IV SCH (14:33)
[2019-03-02] MEDS: COLACE PO SCH ×2 (15:44→21:28)
[2019-03-02] MEDS ORDERED: VANCOMYCIN 750 MG in NACL 0.9% 250ML 250 ML IV SCH (22:00)
[2019-03-03] MEDS: VANCOMYCIN 750 MG in NACL 0.9% 250ML 250 ML IV SCH ×3 (00:29→23:04)
[2019-03-03] MEDS: DOXYCYCLINE HYCLATE 100 MG in NACL 0.9% 250ML 250 ML IV SCH ×2 (05:09→17:07)
[2019-03-03] MEDS: D5W 1,000 ML IV SCH ×3 (05:23→22:59)
[2019-03-03] MEDS: HumuLIN R SUB-Q SCH ×4 (08:20→21:49)
[2019-03-03] MEDS: HEPARIN SUB-Q SCH ×2 (09:13→21:49)
[2019-03-03] MEDS: SODIUM CHLORIDE FLUSH SYRINGE 10 ML IV SCH ×2 (09:13→21:49)
[2019-03-03] MEDS: COLACE PO SCH (09:28)
[2019-03-03] MEDS ORDERED: COLACE PO PRN (09:31)
--- NOTE | 2019-03-03 11:24 | Discharge Summary ---
Providers - Providers Date of Admission: 03/01/19 00:35 Attending physician: LETY HARDWICK MD 03/01/19 00:40 Consult to Wound/ET Nurse [CONS] Routine Reason For Exam: wound eval 03/01/19 01:54 Consult to Dietitian/Nutrition [CONS] Routine Physician Instructions: Reason For Exam: Reason for Consult: Poor oral intake 03/01/19 16:05 Physical Therapy Evaluation and Treat [CONS] Routine Comment: Reason For Exam: debility 03/03/19 08:53 Consult to Physician [CONS] Routine Comment: Consulting Provider: AJ MAGANA Physician Instructions: Reason For Exam: MRSE bacteremia [facility] Hospital[facility] Condition: Critical Hospital course: Rhabdomyolysis -On IV fluid, will monitor CK level. DAVID -Likely vasomotor nephropathy 2/2 Rhabdomyolysis -On IV fluid, will monitor creatinine level Hypernatremia -Likely secondary to dehydration -On IV fluids, will monitor sodium level Left knee cellulitis -On IV antibiotic -Left knee x-ray pending -Wound care nurse consulted Metabolic acidosis -Likely due to the renal impairment -On IV fluid, will monitor bicarbonate level Elevated H&H -Likely due to hemoconcentration -On IVF, will monitor Hyperphosphatemia and hypermagnesemia -Likely secondary to dehydration -We'll hydrate patient and monitor levels Elevated alkaline phosphatase -We'll monitor level DM2 -Stable -On SSI COPD -No acute exacerbation -On PRN neb treatment Disposition: DC- TO HOME OR SELFCARE Time spent for discharge: 33 mins Core Measure Documentation - Palliative Care Palliative Care/ Comfort Measures: Not Applicable - Core Measures Any of the following diagnoses?: none Exam - Constitutional Vitals: Temp Pulse Resp BP Pulse Ox 98.0 F 59 L 14 91/56 100 03/03/19 08:27 03/03/19 08:26 03/03/19 08:27 03/03/19 08:27 03/03/19 08:26 General appearance: Present: no acute distress, well-nourished - EENT Eyes: Present: PERRL ENT: hearing intact, clear oral mucosa - Neck Neck: Present: supple, normal ROM - Respiratory Respiratory effort: normal Respiratory: bilateral: CTA - Cardiovascular Heart Sounds: Present: S1 & S2. Absent: rub, click - Extremities Extremities: pulses symmetrical, No edema Peripheral Pulses: within normal limits - Abdominal General gastrointestinal: Present: soft, non-tender, non-distended, normal bowel sounds Female genitourinary: Present: normal - Integumentary Integumentary: Present: clear, warm, dry - Musculoskeletal Musculoskeletal: gait normal, strength equal bilaterally - Psychiatric Psychiatric: appropriate mood/affect, intact judgment & insight - Neurologic Neurologic: CNII-XII intact, moves all extremities Plan Follow up with: KENYA CHURCH MD [Primary Care Provider] - 3-5 Days Prescriptions: HYDROcodone/APAP 5-325 [[place] 5-325 mg TAB] 1 each PO Q6H PRN #10 tablet PRN Reason: Pain, Moderate (4-6)
--- NOTE | 2019-03-03 14:12 | Consultation ---
History of Present Illness - Reason for Consult Consult date: 03/03/19 bacteremia Requesting physician: LETY HARDWICK - History of Present Illness 53 y/o female with history of diabetes, Afib, hypertension, COPD and bilateral leg/feet necrotizing fascitis s/p bilateral BKA in Aug 2018 known to ID from admission on 07/31/2019 due to severe bilateral lower extremity skin and soft tissue infection with concerns for necrotizing fasciitis transferred to [place]. Admitted on 02/28/2019 due to 24 hour-history of weakness and lightheadedness. She reports she developed a pressure wound to the left distal thigh which has been draining and it is painful. She reports she had been sleeping in her car for about 4 days because she was not getting along with her aunt whom she lives with. She was evaluated by Dr Reyes in Aug 2018 found not to have PVD. In the ED, temp 98.7, HR 142, R14, BP116/74. WBC 11. Hg 15.5. Plat 187. Creat 1.6. Blood cultures 03/01/[address] CoNS [address] head stable ? meningioma. XR +BKA no SQ air, no fracture. Review of Systems: General: +generalized weakness Cutaneous: no rash, pruritus Head: no headaches or injury Eyes: no changes in vision, eye pain, double vision Ears: no ear pain, ear discharge, ringing or hearing loss Nose: no nose bleeding, stuffiness Mouth & throat: no bleeding gums, no horseness, no dental problems, or swollen glands Neck: no pain, node enlargement/lumps, tyroid enlargement or tenderness Respiratory: no cough, wheezing, sputum, hemoptysis, pleuritic chest pain Cardiovascular: no chest pain, leg edema, cyanosis, FIERRO, orthopnea Musculoskeletal: +left thigh wound Gastrointestinal: no nausea, vomiting, no hematemesis, diarrhea, constipation, melena, bright red blood in stools, fecal incontinence, jaundice Genitourinary/Reproductive: no frequent urination, dysuria, hematuria, incontinence Neurogical: no seizures, no headaches, no weakness, no paresthesias, no loss of speech or vision; no memory loss, no vertigo, no tremors, no numbness Psychiatric: stable mood; no excessive anxiety, sadness or moodiness Past History Past Medical History: COPD, diabetes Past Surgical History: Other (bilateral BKA ) Social history: other (she denies tobacco, alcohol or illicit drug use) Family history: other (no known family history of diabetes, hypertension or heart disease.) Medications and Allergies Allergies Allergy/AdvReac Type Severity Reaction Status Date / Time milk Allergy Swelling Verified 12/31/14 07:57 Penicillins Allergy Itching Verified 12/31/14 07:57 shellfish derived Allergy Shortness Verified 02/11/18 01:46 of Breath strawberry [[place]] Allergy Rash Verified 12/31/14 07:57 Sulfa (Sulfonamide Allergy Itching Verified 12/31/14 07:57 Antibiotics) Home Medications Medication Instructions Recorded Confirmed Last Taken Type Budesoni/Formotero 160-4.5(Nf) 2 puff IH BID #1 inha 11/13/17 03/01/19 07/31/18 Rx [Symbicort 160-4.5 (Nf)] Albuterol Sulfate [Ventolin Hfa] 1 puff IH Q4H PRN #1 hfa.aer.ad 12/13/17 03/01/19 Unknown Rx HYDROcodone/APAP 5-325 [[place] 1 each PO Q6H PRN #10 tablet 03/03/19 Unknown Rx 5-325 mg TAB] Active Meds: Active Medications Acetaminophen (Tylenol) 650 mg PO Q4H PRN PRN Reason: Pain MILD(1-3)/Fever >100.5/THOMAS Acetaminophen/Hydrocodone Bitart ([place] 5/325) 1 each PO Q6H PRN PRN Reason: Pain, Moderate (4-6) Dextrose (D50w (25gm) Syringe) 50 ml IV PRN PRN PRN Reason: Hypoglycemia Docusate Sodium (Colace) 100 mg PO BID PRN PRN Reason: Constipation Doxycycline Hyclate (Vibramycin) 100 mg PO Q12HR [facility] Heparin Sodium (Porcine) (Heparin) 5,000 unit SUB-Q Q12HR [facility] Last Admin: 03/03/19 09:13 Dose: 5,000 unit Documented by: Doxycycline Hyclate 100 mg/ (Sodium Chloride) 250 mls @ 250 mls/hr IV Q12H [facility]; Protocol Stop: 03/03/19 20:00 Last Admin: 03/03/19 05:09 Dose: 250 mls/hr Documented by: Dextrose (D5w) 1,000 mls @ 150 mls/hr IV DIRECT [facility] Last Admin: 03/03/19 05:23 Dose: 150 mls/hr Documented by: Vancomycin HCl 750 mg/ Sodium (Chloride) 265 mls @ 166.667 mls/hr IV Q12H [facility] Last Admin: 03/03/19 11:13 Dose: 166.667 mls/hr Documented by: Insulin Human Regular (Humulin R) 0 units SUB-Q ACHS [facility]; Protocol Last Admin: 03/03/19 11:15 Dose: Not Given Documented by: Morphine Sulfate (Morphine) 2 mg IV Q4H PRN PRN Reason: Pain, Moderate (4-6) Ondansetron HCl (Zofran) 4 mg IV Q8H PRN PRN Reason: Nausea And Vomiting Sodium Chloride (Sodium Chloride Flush Syringe 10 Ml) 10 ml IV BID [facility] Last Admin: 03/03/19 09:13 Dose: 10 ml Documented by: Sodium Chloride (Sodium Chloride Flush Syringe 10 Ml) 10 ml IV PRN PRN PRN Reason: LINE FLUSH Physical Examination - Physical Exam Narrative exam: General appearance: Alert in NAD Eyes: anicteric sclerae, moist conjunctivae; no lid-lag; PERRLA HENT: Atraumatic; oropharynx clear with moist mucous membranes and no mucosal ulcerations/no oral thrush; normal hard and soft palate. Normal external ears. Neck: Trachea midline; supple, no thyromegaly or lymphadenopathy Lungs: CTA CV: RRR no murmur Abdomen: Soft, non-tender; no masses or hepatosplenomegaly Extremities:+casie BKA, stumps ok. There is a left distal anterior wound with erythema, minimal drainage and edema Skin: Normal temperature, turgor and texture; no rash, ulcers or subcutaneous nodules Psych: Appropriate affect, alert and oriented to person, place and time. Neuro: alert and oriented x 3. Moving all extermities - Constitutional Vitals: Vital Signs Temp Pulse Resp BP Pulse Ox 98.4 F 71 14 89/43 100 03/03/19 11:41 03/03/19 11:41 03/03/19 11:41 03/03/19 11:41 03/03/19 11:41 Temperature -Last 24 Hours Temperature 98.4 F Temperature 98.0 F Temperature 97.8 F Temperature 98.1 F Temperature 98.4 F Temperature 98.0 F Results - Labs CBC & Chem 7: 03/02/19 05:22 03/02/19 05:22 Labs: Abnormal lab results 03/02/19 03/02/19 03/03/19 Range/Units 17:22 21:40 08:18 POC Glucose 119 H 109 H 120 H (70-105) 03/03/19 Range/Units 11:21 POC Glucose 129 H (70-105) Assessment and Plan Cultures: Blood cultures 03/01/2019 CoNS 4 of 4 bottles. Assessment: 53 y/o female with history of diabetes, Afib, hypertension, COPD and bilateral leg/feet necrotizing fascitis s/p bilateral BKA in Aug 2018 known to ID from admission on 07/31/2019 due to severe bilateral lower extremity skin and soft tissue infection with concerns for necrotizing fasciitis transferred to [place]. Admitted on 02/28/2019 due to 24 hour-history of weakness and lightheadedness. She reports she developed a pressure wound to the left distal thigh which has been draining and it is painful: 1) Sepsis: Present on admission, manifested by tachycardia, mild leukocytosis and DAVID. Etiology most likely CoNS bacteremia. 2) High grade CoNS bacteremia: Blood cultures 03/01/2019 CoNS 4 of 4 bottles. Likely from left leg wound infection. Per Dr Reyes in Aug 2018 found not to have PVD. XR +BKA no SQ air, no fracture. 3) History of necrotizin fascitis ? of unclear etiology ? vasculitis Recommendations: - patient cannot go home today, needs repeat blood cultures, TTE and CT leg are done - follow-up blood cultures ID and MICs - repeat blood culture today - this is likely a real bacteremia - obtain TTE - continue vancomycin - no need for contact isolation - wound care consult - wound cultures - check CRP/LILLIE/C3/C4/ANCA Will follow. Sury Dorsey MD Infectious Diseases Acid Concentrator [facility] M [phone] O [phone]
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
[2019-03-04] MEDS: D5W 1,000 ML IV SCH ×3 (06:38→23:30)
[2019-03-04] MEDS: HumuLIN R SUB-Q SCH ×4 (07:52→22:32)
[2019-03-04] MEDS ORDERED: VIBRAMYCIN PO SCH (10:00)
[2019-03-04] MEDS: HEPARIN SUB-Q SCH ×2 (10:27→22:30)
[2019-03-04] MEDS: SODIUM CHLORIDE FLUSH SYRINGE 10 ML IV SCH ×2 (10:29→22:32)
[2019-03-04] MEDS: VANCOMYCIN 750 MG in NACL 0.9% 250ML 250 ML IV SCH (11:22)
--- NOTE | 2019-03-04 12:35 | Progress Note ---
Assessment and Plan Cultures: Blood cultures 03/01/2019 CoNS 4 of 4 bottles. Blood cultures 03/03/2019 pending Assessment: 53 y/o female with history of diabetes, Afib, hypertension, COPD and bilateral leg/feet necrotizing fascitis s/p bilateral BKA in Aug 2018 known to ID from admission on 07/31/2019 due to severe bilateral lower extremity skin and soft tissue infection with concerns for necrotizing fasciitis transferred to [place]. Admitted on 02/28/2019 due to 24 hour-history of weakness and lightheadedness. Sh e reports she developed a pressure wound to the left distal thigh which has been draining and it is painful: 1) Sepsis: Present on admission, manifested by tachycardia, mild leukocytosis and DAVID. Etiology most likely CoNS bacteremia. 2) High grade CoNS bacteremia: Blood cultures 03/01/2019 CoNS 4 of 4 bottles. Likely from left leg wound infection. Per Dr Reyes in Aug 2018 found not to have PVD. XR +BKA no SQ air, no fracture. 3) History of necrotizin fascitis ? of unclear etiology ? vasculitis Recommendations: - patient cannot go home today - follow-up blood cultures ID and MICs - follow-up repeat blood culture today - obtain TTE - pending - continue vancomycin - wound care consult - follow-up wound cultures - follow-up CRP/LILLIE/C3/C4/ANCA Will follow. Sury Dorsey MD Infectious Diseases Clinching Machine Operator [facility] M [phone] O [phone] Subjective Date of service: 03/04/19 Principal diagnosis: sepsis Interval history: Patient feels better, no complaints. no fever. Objective - Exam Narrative Exam: General appearance: Alert in NAD Eyes: anicteric sclerae, moist conjunctivae; no lid-lag; PERRLA HENT: Atraumatic; oropharynx clear with moist mucous membranes and no mucosal ulcerations/no oral thrush; normal hard and soft palate. Normal external ears. Neck: Trachea midline; supple, no thyromegaly or lymphadenopathy Lungs: CTA CV: RRR no murmur Abdomen: Soft, non-tender; no masses or hepatosplenomegaly Extremities:+casie BKA, stumps ok. There is a left distal anterior wound with erythema, minimal drainage and edema Skin: Normal temperature, turgor and texture; no rash, ulcers or subcutaneous nodules Psych: Appropriate affect, alert and oriented to person, place and time. Neuro: alert and oriented x 3. Moving all extermities - Constitutional Vitals: Vital Signs Temp Pulse Resp BP Pulse Ox 98.2 F 70 14 100/54 100 03/04/19 11:49 03/04/19 11:49 03/04/19 11:49 03/04/19 11:49 03/04/19 11:49 Temperature -Last 24 Hours Temperature 98.2 F Temperature 98.1 F Temperature 98.6 F - Labs CBC & Chem 7: 03/02/19 05:22 03/02/19 05:22 Labs: Abnormal lab results 03/03/19 03/03/19 03/04/19 Range/Units 16:28 21:47 07:30 POC Glucose 148 H 145 H 116 H (70-105) 03/04/19 Range/Units 11:00 POC Glucose 111 H (70-105)
--- NOTE | 2019-03-04 15:20 | Cat Scan Report ---
CT LOWER EXTREMITY LEFT WITH CONTRAST INDICATION : left thigh wound infected with bacteremia. TECHNIQUE: Axial imaging performed through the left lower extremity following 100 cc of Omnipaque 35 0 intravenously. Sagittal and coronal reformatted images.. All CT scans at this location are perform ed using CT dose reduction for ALARA by means of automated exposure control. COMPARISON: Left knee films dated 03/01/2019 FINDINGS: Below the knee amputation changes are identified. The bony structures are demineralized. Th ere is no evidence for fracture, bone lesion or bony destruction. No findings to suggest osteomyeliti s. The soft tissues are unremarkable. No evidence for subcutaneous gas or abscess. No knee effusion. IMPRESSION: [id number] amputation changes. Osteopenia. No evidence for osteomyelitis or abscess o n CT. Signer Name: Wilbur Allen Jr, MD Signed: 03/04/2019 3:16 PM Workstation Name: [id number]
--- NOTE | 2019-03-04 16:44 | Progress Note ---
Assessment and Plan Assessment and plan: Patient is a 53 woman with a history of hypertension, type 2 DM, afib, COPD and bilateral leg/feet necrotizing fascitis s/p bilateral BKA with PAD admitted for pressure wound, Blood cultures 03/01/2019 coag negative Staph Blood cultures 03/03/2019 pending Sepsis cellulitis; wound care Staph aureus, coag negtative bacteremia: continue Abx, ID following Left knee pressure ulcer, stage 3: wound care, abx Suspect severe malnutrition: consult Leather Leveler History Interval history: Patient was seen and examined. Follow-up on current diagnosis of cellulitis. No overnight events reported to me. Patient denies any chest pain, shortness breath, nausea/vomiting or severe headaches. Imaging, nursing note, chart, labs and old chart reviewed. Discussed with patient. Hospitalist Physical - Physical exam Narrative exam: Gen: thin frail, NAD, Awake, Alert, Orientated HEENT: NCAT, EOMI, PERRL, OP Clear Neck: supple, no adenopathy, no thyromegaly, no JVD CVS/Heart: RRR, normal S1S2, pulses present bilaterally Chest/Lungs: CTA B, Symmetrical chest expansion, good air entry bilaterally GI/Abdomen: soft, NTND, good bowel sounds, no guarding or rebound /Bladder: no suprapubic tenderness, no CVA or paraspinal tenderness Extermity/Skin: bilateral BKA, knee ulcer, worse on left MSK: FROM x 4 Neuro: CN 2-12 grossly intact, no new focal deficits Psych: calm - Constitutional Vitals: Temp Pulse Resp BP Pulse Ox 98.2 F 70 14 100/54 100 03/04/19 11:49 03/04/19 11:49 03/04/19 11:49 03/04/19 11:49 03/04/19 11:49 General appearance: Present: no acute distress, cachectic Results - Labs CBC & Chem 7: 03/02/19 05:22 03/02/19 05:22 Labs: Laboratory Last Values WBC 3.9 K/mm3 (4.5-11.0) L 03/02/19 05:22 RBC 4.02 M/mm3 (3.65-5.03) 03/02/19 05:22 Hgb 12.0 gm/dl (10.1-14.3) D 03/02/19 05:22 Hct 36.4 % (30.3-42.9) D 03/02/19 05:22 MCV 91 fl (79-97) 03/02/19 05:22 MCH 30 pg (28-32) 03/02/19 05:22 MCHC 33 % (30-34) 03/02/19 05:22 RDW 14.2 % (13.2-15.2) 03/02/19 05:22 Plt Count 153 K/mm3 (140-440) 03/02/19 05:22 Lymph % (Auto) Cras 02/28/19 20:10 [place] % (Auto) Cras 02/28/19 20:10 Eos % (Auto) Cras 02/28/19 20:10 Baso % (Auto) Cras 02/28/19 20:10 Lymph # Cras 02/28/19 20:10 [place] # Cras 02/28/19 20:10 Eos # Cras 02/28/19 20:10 Baso # Cras 02/28/19 20:10 Seg Neutrophils % Cras 02/28/19 20:10 Seg Neutrophils # Cras 02/28/19 20:10 Sodium 144 mmol/L (137-145) 03/02/19 05:22 Potassium 3.8 mmol/L (3.6-5.0) D 03/02/19 05:22 Chloride 110.4 mmol/L (98-107) H 03/02/19 05:22 Carbon Dioxide 26 mmol/L (22-30) 03/02/19 05:22 11 mmol/L 03/02/19 05:22 BUN 17 mg/dL (7-17) 03/02/19 05:22 0.6 mg/dL (0.7-1.2) L 03/02/19 05:22 Estimated GFR > 60 ml/min 03/02/19 05:22 28 % 03/02/19 05:22 Glucose 115 mg/dL (65-100) H 03/02/19 05:22 POC Glucose 111 (70-105) H 03/04/19 11:00 Calcium 8.2 mg/dL (8.4-10.2) L 03/02/19 05:22 Phosphorus 2.20 mg/dL (2.5-4.5) L D 03/02/19 05:22 Magnesium 2.10 mg/dL (1.7-2.3) 03/02/19 05:22 0.70 mg/dL (0.1-1.2) 03/02/19 05:22 < 0.2 mg/dL (0-0.2) 03/02/19 05:22 0.5 mg/dL 03/02/19 05:22 AST 32 units/L (5-40) 03/02/19 05:22 ALT 23 units/L (7-56) 03/02/19 05:22 110 units/L (35-129) 03/02/19 05:22 613 units/L (30-135) H 03/02/19 05:22 < 0.010 ng/mL (0.00-0.029) 02/28/19 20:10 0.20 mg/dL (0.00-1.30) 03/03/19 15:03 NT-Pro-B Natriuret Pep 423.5 pg/mL (0-900) 02/28/19 20:10 7.1 g/dL (6.3-8.2) D 03/02/19 05:22 3.2 g/dL (3.9-5) L 03/02/19 05:22 0.8 % 03/02/19 05:22 TSH 0.439 mlU/mL (0.270-4.200) 02/28/19 20:10 Vancomycin Trough 10.8 ug/mL (5.0-20.0) 03/04/19 11:15 Active Medications - Current Medications Current Medications: Generic Name Dose Route Start Last Admin Trade Name Freq PRN Reason Stop Dose Admin Acetaminophen 650 mg 03/01/19 00:35 Tylenol PO Q4H PRN Pain MILD(1-3)/Fever >100.5/THOMAS Acetaminophen/Hydrocodone Bitart 1 each 03/01/19 00:35 [place] 5/325 PO Q6H PRN Pain, Moderate (4-6) Dextrose 50 ml 03/01/19 01:44 D50w (25gm) Syringe IV PRN PRN Hypoglycemia Docusate Sodium 100 mg 03/03/19 09:31 Colace PO BID PRN Constipation Heparin Sodium (Porcine) 5,000 unit 03/01/19 10:00 03/04/19 10:27 Heparin SUB-Q 5,000 unit Q12HR CHRISTAL Administration Dextrose 1,000 mls @ 150 mls/hr 03/01/19 17:00 03/04/19 06:38 D5w IV 150 mls/hr DIRECT CHRISTAL Administration Vancomycin HCl 750 mg/ Sodium 265 mls @ 166.667 mls/hr 03/02/19 12:00 03/04/19 11:22 Chloride IV 166.667 mls/hr Q12H CHRISTAL Administration Insulin Human Regular 0 units 03/01/19 07:30 03/04/19 12:11 Humulin R SUB-Q Not Given ACHS CHRISTAL Protocol Morphine Sulfate 2 mg 03/01/19 00:35 Morphine IV Q4H PRN Pain, Moderate (4-6) Ondansetron HCl 4 mg 03/01/19 00:35 Zofran IV Q8H PRN Nausea And Vomiting Sodium Chloride 10 ml 03/01/19 10:00 03/04/19 10:29 Sodium Chloride Flush Syringe 10 Ml IV 10 ml BID CHRISTAL Administration Sodium Chloride 10 ml 03/01/19 00:35 Sodium Chloride Flush Syringe 10 Ml IV PRN PRN LINE FLUSH Nutrition/Malnutrition Assess - Dietary Evaluation Nutrition/Malnutrition Findings: Nutrition Notes Start: 03/01/19 15:13 Freq: Status: Active Protocol: Document 03/04/19 15:00 RM (Rec: 03/04/19 15:03 RM [id number]) Nutrition Notes Initial or Follow up Reassessment Current Diagnosis Acute Kidney Injury,COPD, Diabetes Other Pertinent Diagnosis Rhabdomyolysis, (L) knee cellulitis, bilat BKA Current Diet Consistent CHO w/Glucerna BID Labs/Tests No recent labs Pertinent Medications Reviewed Height 5 ft 6 in Weight 53 kg [place] Body Weight (kg) 59.09 BMI 18.8 Subjective/Other Information Pt stated that she eats half of her meals and drinks the Glucerna. Percent of energy/protein needs met: 100%/98% Burn Absent Trauma Absent #1 Nutrition Diagnosis Predicted suboptimal energy intake As Evidenced by Signs and Symptoms pt meeting 100% of calorie and 98% of protein needs Diagnosis Progress(for reassessment Resolved documentation) Is patient on ventilator? No Is Patient Ambulatory and/or Out of Bed No REE-([facility]-confined to bed) 6626.552 Calculation Used for Recommendations [place] Additional Notes Pro needs 1.25-1.5g/k-80g /day Fluid needs 1ml/kcal Nutrition Intervention Change Diet Order: Continue current diet order Add Supplement/Snack (indicate name/kcal Glucerna BID (vanilla) /protein ) Provides kCal: 440 Provides Protein (gm) 20 Goal #1 Continue to meet least 75% energy and pro needs via PO and ONS intakes Anticipated Discharge Needs: Continue ONS 1-2 times daily if necessary Follow-Up By: 03/12/19 Additional Comments Follow for PO and ONS intakes
[2019-03-05] MEDS: VANCOMYCIN 750 MG in NACL 0.9% 250ML 250 ML IV SCH ×2 (00:37→12:20)
[2019-03-05 05:25] LABS: Hematocrit 32.1 % (30.3-42.9); Hemoglobin 10.9 gm/dl (10.1-14.3); Mean Corpuscular HGB Conc 34 % (30-34); Mean Corpuscular Volume 88 fl (79-97); Platelet Count 141 K/mm3 (140-440); Red Blood Count 3.64 M/mm3 (3.65-5.03); Red Cell Distribution Width 13.8 % (13.2-15.2)
[2019-03-05 05:40] LABS: Alanine Aminotransferase 24 units/L (7-56); Albumin 2.7 g/dL (3.9-5); BUN/Creatinine Ratio 14; Blood Urea Nitrogen 7 mg/dL (7-17); Calcium 8.1 mg/dL (8.4-10.2); Hemolysis Index 11
[2019-03-05] MEDS: HumuLIN R SUB-Q SCH ×4 (09:34→22:31)
[2019-03-05] MEDS: HEPARIN SUB-Q SCH ×2 (09:42→22:37)
[2019-03-05] MEDS: SODIUM CHLORIDE FLUSH SYRINGE 10 ML IV SCH ×2 (12:26→22:37)
--- NOTE | 2019-03-05 13:12 | Progress Note ---
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 Follow-up on current diagnosis of cellulitis. No overnight events reported to me. Patient denies any chest pain, shortness breath, nausea/vomiting or severe headaches. Imaging, nursing note, chart, labs and old chart reviewed. Discussed with patient. Hospitalist Physical - Physical exam Narrative exam: Gen: thin frail, NAD, Awake, Alert, Orientated HEENT: NCAT, EOMI, PERRL, OP Clear Neck: supple, no adenopathy, no thyromegaly, no JVD CVS/Heart: RRR, normal S1S2, pulses present bilaterally Chest/Lungs: CTA B, Symmetrical chest expansion, good air entry bilaterally GI/Abdomen: soft, NTND, good bowel sounds, no guarding or rebound /Bladder: no suprapubic tenderness, no CVA or paraspinal tenderness Extermity/Skin: bilateral BKA, knee ulcer, worse on left MSK: FROM x 4 Neuro: CN 2-12 grossly intact, no new focal deficits Psych: calm - Constitutional Vitals: Temp Pulse Resp BP Pulse Ox 97.9 F 75 18 102/61 99 03/05/19 05:04 03/05/19 05:04 03/05/19 05:04 03/05/19 05:04 03/05/19 05:04 General appearance: Present: no acute distress, cachectic Results - Labs CBC & Chem 7: 03/05/19 04:45 03/05/19 04:45 Labs: Laboratory Last Values WBC 2.4 K/mm3 (4.5-11.0) L 03/05/19 04:45 RBC 3.64 M/mm3 (3.65-5.03) L 03/05/19 04:45 Hgb 10.9 gm/dl (10.1-14.3) 03/05/19 04:45 Hct 32.1 % (30.3-42.9) 03/05/19 04:45 MCV 88 fl (79-97) 03/05/19 04:45 MCH 30 pg (28-32) 03/05/19 04:45 MCHC 34 % (30-34) 03/05/19 04:45 RDW 13.8 % (13.2-15.2) 03/05/19 04:45 Plt Count 141 K/mm3 (140-440) 03/05/19 04:45 Lymph % (Auto) [place] 02/28/19 20:10 [place] % (Auto) Step Finisher 02/28/19 20:10 Eos % (Auto) Step Finisher 02/28/19 20:10 Baso % (Auto) Step Finisher 02/28/19 20:10 Lymph # Step Finisher 02/28/19 20:10 [place] # Step Finisher 02/28/19 20:10 Eos # Step Finisher 02/28/19 20:10 Baso # Step Finisher 02/28/19 20:10 Seg Neutrophils % Step Finisher 02/28/19 20:10 Seg Neutrophils # Step Finisher 02/28/19 20:10 Sodium 139 mmol/L (137-145) 03/05/19 04:45 Potassium 3.1 mmol/L (3.6-5.0) L 03/05/19 04:45 Chloride 104.0 mmol/L (98-107) 03/05/19 04:45 Carbon Dioxide 28 mmol/L (22-30) 03/05/19 04:45 10 mmol/L 03/05/19 04:45 BUN 7 mg/dL (7-17) 03/05/19 04:45 0.5 mg/dL (0.7-1.2) L 03/05/19 04:45 Estimated GFR > 60 ml/min 03/05/19 04:45 14 % 03/05/19 04:45 Glucose 120 mg/dL (65-100) H 03/05/19 04:45 POC Glucose 111 (70-105) H 03/05/19 12:05 Calcium 8.1 mg/dL (8.4-10.2) L 03/05/19 04:45 Phosphorus 2.20 mg/dL (2.5-4.5) L D 03/02/19 05:22 Magnesium 2.10 mg/dL (1.7-2.3) 03/02/19 05:22 0.20 mg/dL (0.1-1.2) 03/05/19 04:45 < 0.2 mg/dL (0-0.2) 03/02/19 05:22 0.5 mg/dL 03/02/19 05:22 AST 21 units/L (5-40) 03/05/19 04:45 ALT 24 units/L (7-56) 03/05/19 04:45 116 units/L (35-129) 03/05/19 04:45 94 units/L (30-135) 03/05/19 04:45 < 0.010 ng/mL (0.00-0.029) 02/28/19 20:10 0.20 mg/dL (0.00-1.30) 03/03/19 15:03 NT-Pro-B Natriuret Pep 423.5 pg/mL (0-900) 02/28/19 20:10 6.2 g/dL (6.3-8.2) L 03/05/19 04:45 2.7 g/dL (3.9-5) L 03/05/19 04:45 0.8 % 03/05/19 04:45 TSH 0.439 mlU/mL (0.270-4.200) 02/28/19 20:10 Vancomycin Trough 10.8 ug/mL (5.0-20.0) 03/04/19 11:15 Active Medications - Current Medications Current Medications: Generic Name Dose Route Start Last Admin Trade Name Freq PRN Reason Stop Dose Admin Acetaminophen 650 mg 03/01/19 00:35 Tylenol PO Q4H PRN Pain MILD(1-3)/Fever >100.5/THOMAS Acetaminophen/Hydrocodone Bitart 1 each 03/01/19 00:35 [place] 5/325 PO Q6H PRN Pain, Moderate (4-6) Dextrose 50 ml 03/01/19 01:44 D50w (25gm) Syringe IV PRN PRN Hypoglycemia Docusate Sodium 100 mg 03/03/19 09:31 Colace PO BID PRN Constipation Heparin Sodium (Porcine) 5,000 unit 03/01/19 10:00 03/05/19 09:42 Heparin SUB-Q 5,000 unit Q12HR CHRISTAL Administration Dextrose 1,000 mls @ 150 mls/hr 03/01/19 17:00 03/04/19 23:30 D5w IV 150 mls/hr DIRECT CHRISTAL Administration Vancomycin HCl 750 mg/ Sodium 265 mls @ 166.667 mls/hr 03/02/19 12:00 03/05/19 12:20 Chloride IV 166.667 mls/hr Q12H CHRISTAL Administration Insulin Human Regular 0 units 03/01/19 07:30 03/05/19 12:25 Humulin R SUB-Q Not Given ACHS CHRISTAL Protocol Morphine Sulfate 2 mg 03/01/19 00:35 Morphine IV Q4H PRN Pain, Moderate (4-6) Ondansetron HCl 4 mg 03/01/19 00:35 Zofran IV Q8H PRN Nausea And Vomiting Sodium Chloride 10 ml 03/01/19 10:00 03/05/19 12:26 Sodium Chloride Flush Syringe 10 Ml IV 10 ml BID CHRISTAL Administration Sodium Chloride 10 ml 03/01/19 00:35 Sodium Chloride Flush Syringe 10 Ml IV PRN PRN LINE FLUSH Nutrition/Malnutrition Assess - Dietary Evaluation Nutrition/Malnutrition Findings: Nutrition Notes Start: 03/01/19 15:13 Freq: Status: Active Protocol: Document 03/04/19 15:00 RM (Rec: 03/04/19 15:03 RM [email or web address]) Nutrition Notes Initial or Follow up Reassessment Current Diagnosis Acute Kidney Injury,COPD, Diabetes Other Pertinent Diagnosis Rhabdomyolysis, (L) knee cellulitis, bilat BKA Current Diet Consistent CHO w/Glucerna BID Labs/Tests No recent labs Pertinent Medications Reviewed Height 5 ft 6 in Weight 53 kg [place] Body Weight (kg) 59.09 BMI 18.8 Subjective/Other Information Pt stated that she eats half of her meals and drinks the Glucerna. Percent of energy/protein needs met: 100%/98% Burn Absent Trauma Absent #1 Nutrition Diagnosis Predicted suboptimal energy intake As Evidenced by Signs and Symptoms pt meeting 100% of calorie and 98% of protein needs Diagnosis Progress(for reassessment Resolved documentation) Is patient on ventilator? No Is Patient Ambulatory and/or Out of Bed No REE-([facility]-confined to bed) 1386.552 Calculation Used for Recommendations [place] Additional Notes Pro needs 1.25-1.5g/k-80g /day Fluid needs 1ml/kcal Nutrition Intervention Change Diet Order: Continue current diet order Add Supplement/Snack (indicate name/kcal Glucerna BID (vanilla) /protein ) Provides kCal: 440 Provides Protein (gm) 20 Goal #1 Continue to meet least 75% energy and pro needs via PO and ONS intakes Anticipated Discharge Needs: Continue ONS 1-2 times daily if necessary Follow-Up By: 03/12/19 Additional Comments Follow for PO and ONS intakes
[2019-03-05] MEDS: D5W 1,000 ML IV SCH (16:25)
[2019-03-06] MEDS: D5W 1,000 ML IV SCH ×3 (00:28→18:12)
[2019-03-06] MEDS: VANCOMYCIN 750 MG in NACL 0.9% 250ML 250 ML IV SCH ×2 (00:29→12:42)
[2019-03-06] MEDS: HumuLIN R SUB-Q SCH ×4 (08:47→23:35)
--- NOTE | 2019-03-06 09:20 | Progress Note ---
Assessment and Plan Cultures: Blood cultures 03/01/2019 Staph hominis 4 of 4 bottles (methicillin sensitive) Blood cultures 03/03/2019 no growth Wound culture 03/03/2019 MSSA Assessment: 53 y/o female with history of diabetes, Afib, hypertension, COPD and bilateral leg/feet necrotizing fascitis s/p bilateral BKA in Aug 2018 known to ID from admission on 07/31/2019 due to severe bilateral lower extremity skin and soft tissue infection with concerns for necrotizing fasciitis transferred to [place]. Admitted on 02/28/2019 due to 24 hour-history of weakness and lightheadedness. She reports she developed a pressure wound to the left distal thigh which has been draining and it is painful: 1) Sepsis: resolved. Etiology most likely Staph hominis bacteremia. 2) High grade Staph hominis bacteremia: Blood cultures 03/01/2019 Staph hominis 4 of 4 bottles. Likely from left leg wound infection ? however wound culture grew MSSA. TTE no vegetations. Per Dr Reyes in Aug 2018 found not to have PVD. XR +BKA no SQ air, no fracture. CT leg shows [id number] amputation changes. Osteopenia. No evidence for osteomyelitis or abscess on CT. 3) History of necrotizing fascitis ? of unclear etiology ? vasculitis. CRP 0.2. Recommendations: - continue vancomycin - follow-up LILLIE/C3/C4/ANCA - at discharge will continue vancomycin 750 mg IV q12 hour for 2 weeks until 03/17/2019. Orders sent to case resolution specialist - place a midline today - ID clinic f/u in 2-3 weeks OK to d/c home from ID stand point once antibiotics arranged as above I am signing off Sury Dorsey MD Infectious Diseases Offender Job Retention Specialist [facility], [place], [facility] ([facility] M [phone] O [phone] Subjective Date of service: 03/06/19 Principal diagnosis: sepsis Interval history: No complaints. no fever. Objective - Exam Narrative Exam: General appearance: Alert in NAD Eyes: anicteric sclerae, moist conjunctivae; no lid-lag; PERRLA HENT: Atraumatic; oropharynx clear with moist mucous membranes and no mucosal ulcerations/no oral thrush; normal hard and soft palate. Normal external ears. Neck: Trachea midline; supple, no thyromegaly or lymphadenopathy Lungs: CTA CV: RRR no murmur Abdomen: Soft, non-tender; no masses or hepatosplenomegaly Extremities:+casie BKA, stumps ok. There is a left distal anterior wound with erythema, and edema better Skin: Normal temperature, turgor and texture; no rash, ulcers or subcutaneous nodules Psych: Appropriate affect, alert and oriented to person, place and time. Neuro: alert and oriented x 3. Moving all extermities - Constitutional Vitals: Vital Signs Temp Pulse Resp BP Pulse Ox 97.6 F 77 16 102/62 97 03/06/19 05:31 03/06/19 05:31 03/06/19 05:31 03/06/19 05:31 03/06/19 05:31 Temperature -Last 24 Hours Temperature 97.6 F Temperature 98.1 F Temperature 98.1 F Temperature 98.4 F - Labs CBC & Chem 7: 03/05/19 04:45 03/05/19 04:45 Labs: Abnormal lab results 03/05/19 03/05/19 03/05/19 Range/Units 12:05 16:36 21:48 POC Glucose 111 H 127 H 131 H (70-105) 03/06/19 Range/Units 08:25 POC Glucose 119 H (70-105)
[2019-03-06] MEDS: HEPARIN SUB-Q SCH ×2 (12:37→23:30)
[2019-03-06] MEDS: SODIUM CHLORIDE FLUSH SYRINGE 10 ML IV SCH ×2 (12:42→23:32)
--- NOTE | 2019-03-06 14:24 | Progress Note ---
Assessment and Plan Assessment and plan: Patient is a 53 woman who is homeless and lives out her van with a history of hypertension, type 2 DM, afib, COPD and bilateral leg/feet necrotizing fascitis s/p bilateral BKA with PAD admitted for pressure wound, Blood cultures 03/01/2019 coag negative Staph Blood cultures 03/03/2019 pending Left wound culture growing Staph species Sepsis cellulitis; wound care Staph aureus, coag negative bacteremia: continue Abx, ID following Left knee pressure ulcer, stage 3: wound care, abx Severe malnutrition, bmi 16.8: consulted Vp Cardiovascular ARF most likely ATN and vasomotor nephropathy, poa, resolved Disposition: continue inpatient, awaiting iv abx setup History Interval history: Patient was seen and examined. Follow-up on current diagnosis of cellulitis. No overnight events reported to me. Patient denies any chest pain, shortness breath , nausea/vomiting or severe headaches. Imaging, nursing note, chart, labs and old chart reviewed. Discussed with patient. Hospitalist Physical - Physical exam Narrative exam: Gen: thin frail, NAD, Awake, Alert, Orientated HEENT: NCAT, EOMI, PERRL, OP Clear Neck: supple, no adenopathy, no thyromegaly, no JVD CVS/Heart: RRR, normal S1S2, pulses present bilaterally Chest/Lungs: CTA B, Symmetrical chest expansion, good air entry bilaterally GI/Abdomen: soft, NTND, good bowel sounds, no guarding or rebound /Bladder: no suprapubic tenderness, no CVA or paraspinal tenderness Extermity/Skin: bilateral BKA, knee ulcer, worse on left MSK: FROM x 4 Neuro: CN 2-12 grossly intact, no new focal deficits Psych: calm - Constitutional Vitals: Temp Pulse Resp BP Pulse Ox 97.6 F 77 16 102/62 97 03/06/19 05:31 03/06/19 05:31 03/06/19 05:31 03/06/19 05:31 03/06/19 05:31 General appearance: Present: no acute distress, cachectic Results - Labs CBC & Chem 7: 03/05/19 04:45 03/05/19 04:45 Labs: Laboratory Last Values WBC 2.4 K/mm3 (4.5-11.0) L 03/05/19 04:45 RBC 3.64 M/mm3 (3.65-5.03) L 03/05/19 04:45 Hgb 10.9 gm/dl (10.1-14.3) 03/05/19 04:45 Hct 32.1 % (30.3-42.9) 03/05/19 04:45 MCV 88 fl (79-97) 03/05/19 04:45 MCH 30 pg (28-32) 03/05/19 04:45 MCHC 34 % (30-34) 03/05/19 04:45 RDW 13.8 % (13.2-15.2) 03/05/19 04:45 Plt Count 141 K/mm3 (140-440) 03/05/19 04:45 Lymph % (Auto) [place] 02/28/19 20:10 [place] % (Auto) Ingot Passer 02/28/19 20:10 Eos % (Auto) [place] Passer 02/28/19 20:10 Baso % (Auto) [place]got Passer 02/28/19 20:10 Lymph # Ingot Passer 02/28/19 20:10 [place] # Ingot Passer 02/28/19 20:10 Eos # Ingot Passer 02/28/19 20:10 Baso # Ingot Passer 02/28/19 20:10 Seg Neutrophils % Ingot Passer 02/28/19 20:10 Seg Neutrophils # Ingot Passer 02/28/19 20:10 Sodium 139 mmol/L (137-145) 03/05/19 04:45 Potassium 3.1 mmol/L (3.6-5.0) L 03/05/19 04:45 Chloride 104.0 mmol/L (98-107) 03/05/19 04:45 Carbon Dioxide 28 mmol/L (22-30) 03/05/19 04:45 10 mmol/L 03/05/19 04:45 BUN 7 mg/dL (7-17) 03/05/19 04:45 0.5 mg/dL (0.7-1.2) L 03/05/19 04:45 Estimated GFR > 60 ml/min 03/05/19 04:45 14 % 03/05/19 04:45 Glucose 120 mg/dL (65-100) H 03/05/19 04:45 POC Glucose 108 (70-105) H 03/06/19 12:23 Calcium 8.1 mg/dL (8.4-10.2) L 03/05/19 04:45 Phosphorus 2.20 mg/dL (2.5-4.5) L D 03/02/19 05:22 Magnesium 2.10 mg/dL (1.7-2.3) 03/02/19 05:22 0.20 mg/dL (0.1-1.2) 03/05/19 04:45 < 0.2 mg/dL (0-0.2) 03/02/19 05:22 0.5 mg/dL 03/02/19 05:22 AST 21 units/L (5-40) 03/05/19 04:45 ALT 24 units/L (7-56) 03/05/19 04:45 116 units/L (35-129) 03/05/19 04:45 94 units/L (30-135) 03/05/19 04:45 < 0.010 ng/mL (0.00-0.029) 02/28/19 20:10 0.20 mg/dL (0.00-1.30) 03/03/19 15:03 NT-Pro-B Natriuret Pep 423.5 pg/mL (0-900) 02/28/19 20:10 6.2 g/dL (6.3-8.2) L 03/05/19 04:45 2.7 g/dL (3.9-5) L 03/05/19 04:45 0.8 % 03/05/19 04:45 TSH 0.439 mlU/mL (0.270-4.200) 02/28/19 20:10 Vancomycin Trough 10.8 ug/mL (5.0-20.0) 03/04/19 11:15 Active Medications - Current Medications Current Medications: Generic Name Dose Route Start Last Admin Trade Name Freq PRN Reason Stop Dose Admin Acetaminophen 650 mg 03/01/19 00:35 Tylenol PO Q4H PRN Pain MILD(1-3)/Fever >100.5/THOMAS Acetaminophen/Hydrocodone Bitart 1 each 03/01/19 00:35 [place] 5/325 PO Q6H PRN Pain, Moderate (4-6) Dextrose 50 ml 03/01/19 01:44 D50w (25gm) Syringe IV PRN PRN Hypoglycemia Docusate Sodium 100 mg 03/03/19 09:31 Colace PO BID PRN Constipation Heparin Sodium (Porcine) 5,000 unit 03/01/19 10:00 03/06/19 12:37 Heparin SUB-Q Not Given Q12HR CHRISTAL Dextrose 1,000 mls @ 150 mls/hr 03/01/19 17:00 03/06/19 08:47 D5w IV 150 mls/hr DIRECT CHRISTAL Administration Vancomycin HCl 750 mg/ Sodium 265 mls @ 166.667 mls/hr 03/02/19 12:00 03/06/19 12:42 Chloride IV 03/17/19 13:36 166.667 mls/hr Q12H CHRISTAL Administration Insulin Human Regular 0 units 03/01/19 07:30 03/06/19 12:38 Humulin R SUB-Q Not Given ACHS CHRISTAL Protocol Morphine Sulfate 2 mg 03/01/19 00:35 Morphine IV Q4H PRN Pain, Moderate (4-6) Ondansetron HCl 4 mg 03/01/19 00:35 Zofran IV Q8H PRN Nausea And Vomiting Sodium Chloride 10 ml 03/01/19 10:00 03/06/19 12:42 Sodium Chloride Flush Syringe 10 Ml IV 10 ml BID CHRISTAL Administration Sodium Chloride 10 ml 03/01/19 00:35 Sodium Chloride Flush Syringe 10 Ml IV PRN PRN LINE FLUSH Nutrition/Malnutrition Assess - Dietary Evaluation Nutrition/Malnutrition Findings: Nutrition Notes Start: 03/01/19 15:13 Freq: Status: Active Protocol: Document 03/05/19 16:42 RM (Rec: 03/05/19 16:43 RM [id number]) Nutrition Notes Initial or Follow up Brief Note Subjective/Other Information Consulted for malnutrition. Pt already being followed. Nutrition Intervention Follow-Up By: 03/12/19 Additional Comments Follow for PO and ONS intakes
[2019-03-07] MEDS: VANCOMYCIN 750 MG in NACL 0.9% 250ML 250 ML IV SCH ×2 (00:08→13:05)
[2019-03-07] MEDS: D5W 1,000 ML IV SCH ×2 (00:08→08:10)
[2019-03-07] MEDS: HumuLIN R SUB-Q SCH ×3 (07:04→17:04)
--- NOTE | 2019-03-07 10:54 | Progress Note ---
Assessment and Plan Cultures: Blood cultures 03/01/2019 Staph hominis 4 of 4 bottles (methicillin sensitive) Blood cultures 03/03/2019 no growth Wound culture 03/03/2019 MSSA Assessment: 53 y/o female with history of diabetes, Afib, hypertension, COPD and bilateral leg/feet necrotizing fascitis s/p bilateral BKA in Aug 2018 known to ID from admission on 07/31/2019 due to severe bilateral lower extremity skin and soft tissue infection with concerns for necrotizing fasciitis transferred to [facility]. Admitted on 02/28/2019 due to 24 hour-history of weakness and lightheadedness. She reports she developed a pressure wound to the left distal thigh which has been draining and it is painful: 1) Sepsis: resolved. Etiology most likely Staph hominis bacteremia. 2) High grade Staph hominis bacteremia: Blood cultures 03/01/2019 Staph hominis 4 of 4 bottles. Likely from left leg wound infection ? however wound culture grew MSSA. TTE no vegetations. Per Dr Reyes in Aug 2018 found not to have PVD. XR +BKA no SQ air, no fracture. CT leg shows [id number] amputation changes. Osteopenia. No evidence for osteomyelitis or abscess on CT. 3) History of necrotizing fascitis ? of unclear etiology ? vasculitis. CRP 0.2. Recommendations: - continue vancomycin - follow-up LILLIE/C3/C4/ANCA - at discharge will continue vancomycin 750 mg IV q12 hour for 2 weeks until 03/17/2019. Orders sent to correctional counselor/case manager - place a midline today - ID clinic f/u in 2-3 weeks OK to d/c home from ID stand point once antibiotics arranged as above I am signing off Sury Dorsey MD Infectious Diseases [employer] [facility] ([facility] M [phone] O [phone] Subjective Date of service: 03/07/19 Principal diagnosis: sepsis Interval history: No complaints. no fever. Read to go home. Objective - Exam Narrative Exam: General appearance: Alert in NAD Eyes: anicteric sclerae, moist conjunctivae; no lid-lag; PERRLA HENT: Atraumatic; oropharynx clear. Neck: Trachea midline; supple, no thyromegaly or lymphadenopathy Lungs: CTA CV: RRR no murmur Abdomen: Soft, non-tender; no masses or hepatosplenomegaly Extremities:+casie BKA, stumps ok. There is a left distal anterior wound with erythema, and edema better Skin: Normal temperature, turgor and texture; no rash, ulcers or subcutaneous nodules Psych: Appropriate affect, alert and oriented to person, place and time. Neuro: alert and oriented x 3. Moving all extermities - Constitutional Vitals: Vital Signs Temp Pulse Resp BP Pulse Ox 97.5 F L 72 14 102/64 99 03/07/19 05:15 03/07/19 05:15 03/07/19 05:15 03/07/19 05:15 03/07/19 05:15 Temperature -Last 24 Hours Temperature 97.5 F Temperature 97.9 F Temperature 98.3 F Temperature 98.1 F - Labs CBC & Chem 7: 03/05/19 04:45 03/05/19 04:45 Labs: Abnormal lab results 03/03/19 03/06/19 03/06/19 Range/Units 15:04 12:23 16:47 POC Glucose 108 H 119 H (70-105) Complement C4 14 L (15-57) mg/dL 03/06/19 03/07/19 Range/Units 21:58 07:33 POC Glucose 114 H 116 H (70-105) Complement C4 (15-57) mg/dL
[2019-03-07 11:43] LABS: Myeloperoxidase Antibody <1.0 AI (<1.0)
[2019-03-07] MEDS: HEPARIN SUB-Q SCH ×2 (12:07→21:11)
[2019-03-07] MEDS: SODIUM CHLORIDE FLUSH SYRINGE 10 ML IV SCH ×2 (15:05→21:11)
--- NOTE | 2019-03-07 15:39 | Progress Note ---
Assessment and Plan Assessment and plan: Patient is a 53 woman who is homeless and lives out her van with a history of hypertension, type 2 DM, afib, COPD and bilateral leg/feet necrotizing fascitis s/p bilateral BKA with PAD admitted for pressure wound, Blood cultures 03/01/2019 coag negative Staph Blood cultures 03/03/2019 pending Left wound culture growing Staph species Sepsis cellulitis; wound care Staph aureus, coag negative bacteremia: continue Abx, ID following Left knee pressure ulcer, stage 3: wound care, abx Severe malnutrition, bmi 16.8: consulted Ignition Specialist ARF most likely ATN and vasomotor nephropathy, poa, resolved Disposition: continue inpatient, awaiting iv abx setup History Interval history: Patient was seen and examined. Follow-up on current diagnosis of cellulitis. No overnight events reported to me. Patient denies any chest pain, shortness breath , nausea/vomiting or severe headaches. Imaging, nursing note, chart, labs and old chart reviewed. Discussed with patient. Hospitalist Physical - Physical exam Narrative exam: Gen: thin frail, NAD, Awake, Alert, Orientated HEENT: NCAT, EOMI, PERRL, OP Clear Neck: supple, no adenopathy, no thyromegaly, no JVD CVS/Heart: RRR, normal S1S2, pulses present bilaterally Chest/Lungs: CTA B, Symmetrical chest expansion, good air entry bilaterally GI/Abdomen: soft, NTND, good bowel sounds, no guarding or rebound /Bladder: no suprapubic tenderness, no CVA or paraspinal tenderness Extermity/Skin: bilateral BKA, knee ulcer, worse on left MSK: FROM x 4 Neuro: CN 2-12 grossly intact, no new focal deficits Psych: calm - Constitutional Vitals: Temp Pulse Resp BP Pulse Ox 98.0 F 82 16 102/62 99 03/07/19 11:02 03/07/19 11:02 03/07/19 11:02 03/07/19 11:02 03/07/19 11:02 General appearance: Present: no acute distress, cachectic Results - Labs CBC & Chem 7: 03/05/19 04:45 03/05/19 04:45 Labs: Laboratory Last Values WBC 2.4 K/mm3 (4.5-11.0) L 03/05/19 04:45 RBC 3.64 M/mm3 (3.65-5.03) L 03/05/19 04:45 Hgb 10.9 gm/dl (10.1-14.3) 03/05/19 04:45 Hct 32.1 % (30.3-42.9) 03/05/19 04:45 MCV 88 fl (79-97) 03/05/19 04:45 MCH 30 pg (28-32) 03/05/19 04:45 MCHC 34 % (30-34) 03/05/19 04:45 RDW 13.8 % (13.2-15.2) 03/05/19 04:45 Plt Count 141 K/mm3 (140-440) 03/05/19 04:45 Lymph % (Auto) Dumper Operator 02/28/19 20:10 [place] % (Auto) Dumper Operator 02/28/19 20:10 Eos % (Auto) Dumper Operator 02/28/19 20:10 Baso % (Auto) Dumper Operator 02/28/19 20:10 Lymph # Dumper Operator 02/28/19 20:10 [place] # Dumper Operator 02/28/19 20:10 Eos # Dumper Operator 02/28/19 20:10 Baso # Dumper Operator 02/28/19 20:10 Seg Neutrophils % Dumper Operator 02/28/19 20:10 Seg Neutrophils # Dumper Operator 02/28/19 20:10 Sodium 139 mmol/L (137-145) 03/05/19 04:45 Potassium 3.1 mmol/L (3.6-5.0) L 03/05/19 04:45 Chloride 104.0 mmol/L (98-107) 03/05/19 04:45 Carbon Dioxide 28 mmol/L (22-30) 03/05/19 04:45 10 mmol/L 03/05/19 04:45 BUN 7 mg/dL (7-17) 03/05/19 04:45 0.5 mg/dL (0.7-1.2) L 03/05/19 04:45 Estimated GFR > 60 ml/min 03/05/19 04:45 14 % 03/05/19 04:45 Glucose 120 mg/dL (65-100) H 03/05/19 04:45 POC Glucose 116 (70-105) H 03/07/19 12:04 Calcium 8.1 mg/dL (8.4-10.2) L 03/05/19 04:45 Phosphorus 2.20 mg/dL (2.5-4.5) L D 03/02/19 05:22 Magnesium 2.10 mg/dL (1.7-2.3) 03/02/19 05:22 0.20 mg/dL (0.1-1.2) 03/05/19 04:45 < 0.2 mg/dL (0-0.2) 03/02/19 05:22 0.5 mg/dL 03/02/19 05:22 AST 21 units/L (5-40) 03/05/19 04:45 ALT 24 units/L (7-56) 03/05/19 04:45 116 units/L (35-129) 03/05/19 04:45 94 units/L (30-135) 03/05/19 04:45 < 0.010 ng/mL (0.00-0.029) 02/28/19 20:10 0.20 mg/dL (0.00-1.30) 03/03/19 15:03 NT-Pro-B Natriuret Pep 423.5 pg/mL (0-900) 02/28/19 20:10 6.2 g/dL (6.3-8.2) L 03/05/19 04:45 2.7 g/dL (3.9-5) L 03/05/19 04:45 0.8 % 03/05/19 04:45 TSH 0.439 mlU/mL (0.270-4.200) 02/28/19 20:10 Vancomycin Trough 10.8 ug/mL (5.0-20.0) 03/04/19 11:15 Proteinase 3 (PR3) Ab <1.0 AI (<1.0) 03/03/19 14:55 Myeloperoxidase Ab <1.0 AI (<1.0) 03/03/19 14:55 98 mg/dL (83-193) 03/03/19 15:03 14 mg/dL (15-57) L 03/03/19 15:04 Active Medications - Current Medications Current Medications: Generic Name Dose Route Start Last Admin Trade Name Freq PRN Reason Stop Dose Admin Acetaminophen 650 mg 03/01/19 00:35 Tylenol PO Q4H PRN Pain MILD(1-3)/Fever >100.5/THOMAS Acetaminophen/Hydrocodone Bitart 1 each 03/01/19 00:35 [place] 5/325 PO Q6H PRN Pain, Moderate (4-6) Dextrose 50 ml 03/01/19 01:44 D50w (25gm) Syringe IV PRN PRN Hypoglycemia Docusate Sodium 100 mg 03/03/19 09:31 Colace PO BID PRN Constipation Heparin Sodium (Porcine) 5,000 unit 03/01/19 10:00 03/07/19 12:07 Heparin SUB-Q 5,000 unit Q12HR CHRISTAL Administration Dextrose 1,000 mls @ 150 mls/hr 03/01/19 17:00 03/07/19 08:10 D5w IV 150 mls/hr DIRECT CHRISTAL Administration Vancomycin HCl 750 mg/ Sodium 265 mls @ 166.667 mls/hr 03/02/19 12:00 03/07/19 13:05 Chloride IV 03/17/19 13:36 166.667 mls/hr Q12H CHRISTAL Administration Insulin Human Regular 0 units 03/01/19 07:30 03/07/19 11:04 Humulin R SUB-Q Not Given ACHS CHRISTAL Protocol Morphine Sulfate 2 mg 03/01/19 00:35 Morphine IV Q4H PRN Pain, Moderate (4-6) Ondansetron HCl 4 mg 03/01/19 00:35 Zofran IV Q8H PRN Nausea And Vomiting Sodium Chloride 10 ml 03/01/19 10:00 03/07/19 15:05 Sodium Chloride Flush Syringe 10 Ml IV 10 ml BID CHRISTAL Administration Sodium Chloride 10 ml 03/01/19 00:35 Sodium Chloride Flush Syringe 10 Ml IV PRN PRN LINE FLUSH Nutrition/Malnutrition Assess - Dietary Evaluation Nutrition/Malnutrition Findings: Nutrition Notes Start: 03/01/19 15:13 Freq: Status: Active Protocol: Document 03/05/19 16:42 RM (Rec: 03/05/19 16:43 RM [id number]) Nutrition Notes Initial or Follow up Brief Note Subjective/Other Information Consulted for malnutrition. Pt already being followed. Nutrition Intervention Follow-Up By: 03/12/19 Additional Comments Follow for PO and ONS intakes
[2019-03-07 22:11] LABS: ANA Screen, IFA Negative (Negative)
[2019-03-08] MEDS: VANCOMYCIN 750 MG in NACL 0.9% 250ML 250 ML IV SCH ×2 (01:17→13:31)
[2019-03-08] MEDS: HumuLIN R SUB-Q SCH ×4 (04:42→22:36)
[2019-03-08] MEDS: HEPARIN SUB-Q SCH ×2 (09:48→22:37)
[2019-03-08] MEDS: SODIUM CHLORIDE FLUSH SYRINGE 10 ML IV SCH ×2 (13:30→22:38)
--- NOTE | 2019-03-08 15:55 | Progress Note ---
Assessment and Plan Assessment and plan: Patient is a 53 woman who is homeless and lives out her van with a history of hypertension, type 2 DM, afib, COPD and bilateral leg/feet necrotizing fascitis s/p bilateral BKA with PAD admitted for pressure wound, Blood cultures 03/01/2019 coag negative Staph Blood cultures 03/03/2019 pending Left wound culture growing Staph species Sepsis cellulitis; wound care Staph aureus, coag negative bacteremia: continue Abx, ID following Left knee pressure ulcer, stage 3: wound care, abx Severe malnutrition, bmi 16.8: consulted Interface Designer ARF most likely ATN and vasomotor nephropathy, poa, resolved Disposition: continue inpatient, awaiting iv abx setup History Interval history: Patient was seen and examined. Follow-up on current diagnosis of cellulitis. No overnight events reported to me. Patient denies any chest pain, shortness breath , nausea/vomiting or severe headaches. Imaging, nursing note, chart, labs and old chart reviewed. Discussed with patient. Hospitalist Physical - Physical exam Narrative exam: Gen: thin frail, NAD, Awake, Alert, Orientated HEENT: NCAT, EOMI, PERRL, OP Clear Neck: supple, no adenopathy, no thyromegaly, no JVD CVS/Heart: RRR, normal S1S2, pulses present bilaterally Chest/Lungs: CTA B, Symmetrical chest expansion, good air entry bilaterally GI/Abdomen: soft, NTND, good bowel sounds, no guarding or rebound /Bladder: no suprapubic tenderness, no CVA or paraspinal tenderness Extermity/Skin: bilateral BKA, knee ulcer, worse on left MSK: FROM x 4 Neuro: CN 2-12 grossly intact, no new focal deficits Psych: calm - Constitutional Vitals: Temp Pulse Resp BP Pulse Ox 97.9 F 73 18 99/56 100 03/08/19 12:00 03/08/19 12:00 03/08/19 12:00 03/08/19 12:00 03/08/19 12:00 General appearance: Present: no acute distress, cachectic Results - Labs CBC & Chem 7: 03/05/19 04:45 03/05/19 04:45 Labs: Laboratory Last Values WBC 2.4 K/mm3 (4.5-11.0) L 03/05/19 04:45 RBC 3.64 M/mm3 (3.65-5.03) L 03/05/19 04:45 Hgb 10.9 gm/dl (10.1-14.3) 03/05/19 04:45 Hct 32.1 % (30.3-42.9) 03/05/19 04:45 MCV 88 fl (79-97) 03/05/19 04:45 MCH 30 pg (28-32) 03/05/19 04:45 MCHC 34 % (30-34) 03/05/19 04:45 RDW 13.8 % (13.2-15.2) 03/05/19 04:45 Plt Count 141 K/mm3 (140-440) 03/05/19 04:45 Lymph % (Auto) [place]igee Developer 02/28/19 20:10 [place] % (Auto) Apigee Developer 02/28/19 20:10 Eos % (Auto) Apigee Developer 02/28/19 20:10 Baso % (Auto) Apigee Developer 02/28/19 20:10 Lymph # Apigee Developer 02/28/19 20:10 [place] # Apigee Developer 02/28/19 20:10 Eos # Apigee Developer 02/28/19 20:10 Baso # Apigee Developer 02/28/19 20:10 Seg Neutrophils % Apigee Developer 02/28/19 20:10 Seg Neutrophils # Apigee Developer 02/28/19 20:10 Sodium 139 mmol/L (137-145) 03/05/19 04:45 Potassium 3.1 mmol/L (3.6-5.0) L 03/05/19 04:45 Chloride 104.0 mmol/L (98-107) 03/05/19 04:45 Carbon Dioxide 28 mmol/L (22-30) 03/05/19 04:45 10 mmol/L 03/05/19 04:45 BUN 7 mg/dL (7-17) 03/05/19 04:45 0.5 mg/dL (0.7-1.2) L 03/05/19 04:45 Estimated GFR > 60 ml/min 03/05/19 04:45 14 % 03/05/19 04:45 Glucose 120 mg/dL (65-100) H 03/05/19 04:45 POC Glucose 110 (70-105) H 03/08/19 11:29 Calcium 8.1 mg/dL (8.4-10.2) L 03/05/19 04:45 Phosphorus 2.20 mg/dL (2.5-4.5) L D 03/02/19 05:22 Magnesium 2.10 mg/dL (1.7-2.3) 03/02/19 05:22 0.20 mg/dL (0.1-1.2) 03/05/19 04:45 < 0.2 mg/dL (0-0.2) 03/02/19 05:22 0.5 mg/dL 03/02/19 05:22 AST 21 units/L (5-40) 03/05/19 04:45 ALT 24 units/L (7-56) 03/05/19 04:45 116 units/L (35-129) 03/05/19 04:45 94 units/L (30-135) 03/05/19 04:45 < 0.010 ng/mL (0.00-0.029) 02/28/19 20:10 0.20 mg/dL (0.00-1.30) 03/03/19 15:03 NT-Pro-B Natriuret Pep 423.5 pg/mL (0-900) 02/28/19 20:10 6.2 g/dL (6.3-8.2) L 03/05/19 04:45 2.7 g/dL (3.9-5) L 03/05/19 04:45 0.8 % 03/05/19 04:45 TSH 0.439 mlU/mL (0.270-4.200) 02/28/19 20:10 Vancomycin Trough 10.8 ug/mL (5.0-20.0) 03/04/19 11:15 LILLIE Screen Negative (Negative) 03/03/19 14:55 Proteinase 3 (PR3) Ab <1.0 AI (<1.0) 03/03/19 14:55 Myeloperoxidase Ab <1.0 AI (<1.0) 03/03/19 14:55 98 mg/dL (83-193) 03/03/19 15:03 14 mg/dL (15-57) L 03/03/19 15:04 Active Medications - Current Medications Current Medications: Generic Name Dose Route Start Last Admin Trade Name Freq PRN Reason Stop Dose Admin Acetaminophen 650 mg 03/01/19 00:35 Tylenol PO Q4H PRN Pain MILD(1-3)/Fever >100.5/THOMAS Acetaminophen/Hydrocodone Bitart 1 each 03/01/19 00:35 [place] 5/325 PO Q6H PRN Pain, Moderate (4-6) Dextrose 50 ml 03/01/19 01:44 D50w (25gm) Syringe IV PRN PRN Hypoglycemia Docusate Sodium 100 mg 03/03/19 09:31 Colace PO BID PRN Constipation Heparin Sodium (Porcine) 5,000 unit 03/01/19 10:00 03/08/19 09:48 Heparin SUB-Q 5,000 unit Q12HR CHRISTAL Administration Dextrose 1,000 mls @ 150 mls/hr 03/01/19 17:00 03/07/19 08:10 D5w IV 150 mls/hr DIRECT CHRISTAL Administration Vancomycin HCl 750 mg/ Sodium 265 mls @ 166.667 mls/hr 03/02/19 12:00 03/08/19 13:31 Chloride IV 03/17/19 13:36 166.667 mls/hr Q12H CHRISTAL Administration Insulin Human Regular 0 units 03/01/19 07:30 03/08/19 11:30 Humulin R SUB-Q Not Given ACHS [facility]AL Protocol Morphine Sulfate 2 mg 03/01/19 00:35 Morphine IV Q4H PRN Pain, Moderate (4-6) Ondansetron HCl 4 mg 03/01/19 00:35 Zofran IV Q8H PRN Nausea And Vomiting Sodium Chloride 10 ml 03/01/19 10:00 03/08/19 13:30 Sodium Chloride Flush Syringe 10 Ml IV Not Given BID CHRISTAL Sodium Chloride 10 ml 03/01/19 00:35 Sodium Chloride Flush Syringe 10 Ml IV PRN PRN LINE FLUSH Nutrition/Malnutrition Assess - Dietary Evaluation Nutrition/Malnutrition Findings: Nutrition Notes Start: 03/01/19 15:13 Freq: Status: Active Protocol: Document 03/05/19 16:42 RM (Rec: 03/05/19 16:43 RM [id number]) Nutrition Notes Initial or Follow up Brief Note Subjective/Other Information Consulted for malnutrition. Pt already being followed. Nutrition Intervention Follow-Up By: 03/12/19 Additional Comments Follow for PO and ONS intakes
[2019-03-09] MEDS: VANCOMYCIN 750 MG in NACL 0.9% 250ML 250 ML IV SCH ×3 (00:25→23:35)
[2019-03-09] MEDS: HumuLIN R SUB-Q SCH ×4 (07:39→23:38)
[2019-03-09] MEDS: D5W 1,000 ML IV SCH (07:48)
[2019-03-09] MEDS: HEPARIN SUB-Q SCH ×2 (10:12→23:35)
[2019-03-09] MEDS: SODIUM CHLORIDE FLUSH SYRINGE 10 ML IV SCH ×2 (10:12→23:38)
--- NOTE | 2019-03-09 11:54 | Progress Note ---
Assessment and Plan Assessment and plan: Patient is a 53 woman who is homeless and lives out her van with a history of hypertension, type 2 DM, afib, COPD and bilateral leg/feet necrotizing fascitis s/p bilateral BKA with PAD admitted for pressure wound, Blood cultures 03/01/2019 coag negative Staph Blood cultures 03/03/2019 pending Left wound culture growing Staph species Sepsis cellulitis; wound care Staph aureus, coag negative bacteremia: continue Abx, ID following Left knee pressure ulcer, stage 3: wound care, abx Severe malnutrition, bmi 16.8: consulted Agricultural Lender ARF most likely ATN and vasomotor nephropathy, poa, resolved Disposition: continue inpatient, awaiting iv abx setup History Interval history: Patient was seen and examined. Follow-up on current diagnosis of cellulitis. No overnight events reported to me. Patient denies any chest pain, shortness breath , nausea/vomiting or severe headaches. Imaging, nursing note, chart, labs and old chart reviewed. Discussed with patient. Hospitalist Physical - Physical exam Narrative exam: Gen: thin frail, NAD, Awake, Alert, Orientated HEENT: NCAT, EOMI, PERRL, OP Clear Neck: supple, no adenopathy, no thyromegaly, no JVD CVS/Heart: RRR, normal S1S2, pulses present bilaterally Chest/Lungs: CTA B, Symmetrical chest expansion, good air entry bilaterally GI/Abdomen: soft, NTND, good bowel sounds, no guarding or rebound /Bladder: no suprapubic tenderness, no CVA or paraspinal tenderness Extermity/Skin: bilateral BKA, knee ulcer, worse on left MSK: FROM x 4 Neuro: CN 2-12 grossly intact, no new focal deficits Psych: calm - Constitutional Vitals: Temp Pulse Resp BP Pulse Ox 97.7 F 74 16 103/56 96 03/09/19 05:47 03/09/19 05:47 03/09/19 05:47 03/09/19 05:47 03/09/19 05:47 General appearance: Present: no acute distress, cachectic Results - Labs CBC & Chem 7: 03/05/19 04:45 03/05/19 04:45 Labs: Laboratory Last Values WBC 2.4 K/mm3 (4.5-11.0) L 03/05/19 04:45 RBC 3.64 M/mm3 (3.65-5.03) L 03/05/19 04:45 Hgb 10.9 gm/dl (10.1-14.3) 03/05/19 04:45 Hct 32.1 % (30.3-42.9) 03/05/19 04:45 MCV 88 fl (79-97) 03/05/19 04:45 MCH 30 pg (28-32) 03/05/19 04:45 MCHC 34 % (30-34) 03/05/19 04:45 RDW 13.8 % (13.2-15.2) 03/05/19 04:45 Plt Count 141 K/mm3 (140-440) 03/05/19 04:45 Lymph % (Auto) Shell Assembler 02/28/19 20:10 [place] % (Auto) Shell Assembler 02/28/19 20:10 Eos % (Auto) Shell Assembler 02/28/19 20:10 Baso % (Auto) Shell Assembler 02/28/19 20:10 Lymph # Shell Assembler 02/28/19 20:10 [place] # Shell Assembler 02/28/19 20:10 Eos # Shell Assembler 02/28/19 20:10 Baso # Shell Assembler 02/28/19 20:10 Seg Neutrophils % Shell Assembler 02/28/19 20:10 Seg Neutrophils # Shell Assembler 02/28/19 20:10 Sodium 139 mmol/L (137-145) 03/05/19 04:45 Potassium 3.1 mmol/L (3.6-5.0) L 03/05/19 04:45 Chloride 104.0 mmol/L (98-107) 03/05/19 04:45 Carbon Dioxide 28 mmol/L (22-30) 03/05/19 04:45 10 mmol/L 03/05/19 04:45 BUN 7 mg/dL (7-17) 03/05/19 04:45 0.5 mg/dL (0.7-1.2) L 03/05/19 04:45 Estimated GFR > 60 ml/min 03/05/19 04:45 14 % 03/05/19 04:45 Glucose 120 mg/dL (65-100) H 03/05/19 04:45 POC Glucose 112 (70-105) H 03/09/19 11:37 Calcium 8.1 mg/dL (8.4-10.2) L 03/05/19 04:45 Phosphorus 2.20 mg/dL (2.5-4.5) L D 03/02/19 05:22 Magnesium 2.10 mg/dL (1.7-2.3) 03/02/19 05:22 0.20 mg/dL (0.1-1.2) 03/05/19 04:45 < 0.2 mg/dL (0-0.2) 03/02/19 05:22 0.5 mg/dL 03/02/19 05:22 AST 21 units/L (5-40) 03/05/19 04:45 ALT 24 units/L (7-56) 03/05/19 04:45 116 units/L (35-129) 03/05/19 04:45 94 units/L (30-135) 03/05/19 04:45 < 0.010 ng/mL (0.00-0.029) 02/28/19 20:10 0.20 mg/dL (0.00-1.30) 03/03/19 15:03 NT-Pro-B Natriuret Pep 423.5 pg/mL (0-900) 02/28/19 20:10 6.2 g/dL (6.3-8.2) L 03/05/19 04:45 2.7 g/dL (3.9-5) L 03/05/19 04:45 0.8 % 03/05/19 04:45 TSH 0.439 mlU/mL (0.270-4.200) 02/28/19 20:10 Vancomycin Trough 10.8 ug/mL (5.0-20.0) 03/04/19 11:15 LILLIE Screen Negative (Negative) 03/03/19 14:55 Proteinase 3 (PR3) Ab <1.0 AI (<1.0) 03/03/19 14:55 Myeloperoxidase Ab <1.0 AI (<1.0) 03/03/19 14:55 98 mg/dL (83-193) 03/03/19 15:03 14 mg/dL (15-57) L 03/03/19 15:04 Active Medications - Current Medications Current Medications: Generic Name Dose Route Start Last Admin Trade Name Freq PRN Reason Stop Dose Admin Acetaminophen 650 mg 03/01/19 00:35 Tylenol PO Q4H PRN Pain MILD(1-3)/Fever >100.5/THOMAS Acetaminophen/Hydrocodone Bitart 1 each 03/01/19 00:35 [place] 5/325 PO Q6H PRN Pain, Moderate (4-6) Dextrose 50 ml 03/01/19 01:44 D50w (25gm) Syringe IV PRN PRN Hypoglycemia Docusate Sodium 100 mg 03/03/19 09:31 Colace PO BID PRN Constipation Heparin Sodium (Porcine) 5,000 unit 03/01/19 10:00 03/09/19 10:12 Heparin SUB-Q 5,000 unit Q12HR [facility]RISTAL Administration Dextrose 1,000 mls @ 150 mls/hr 03/01/19 17:00 03/09/19 07:48 D5w IV 150 mls/hr DIRECT CHRISTAL Administration Vancomycin HCl 750 mg/ Sodium 265 mls @ 166.667 mls/hr 03/02/19 12:00 03/09/19 00:25 Chloride IV 03/17/19 13:36 166.667 mls/hr Q12H CHRISTAL Administration Dextrose 1,000 mls @ 75 mls/hr 03/09/19 13:00 D5w IV DIRECT CHRISTAL Insulin Human Regular 0 units 03/01/19 07:30 03/09/19 07:39 Humulin R SUB-Q Not Given ACHS [facility] Protocol Morphine Sulfate 2 mg 03/01/19 00:35 Morphine IV Q4H PRN Pain, Moderate (4-6) Ondansetron HCl 4 mg 03/01/19 00:35 Zofran IV Q8H PRN Nausea And Vomiting Sodium Chloride 10 ml 03/01/19 10:00 03/09/19 10:12 Sodium Chloride Flush Syringe 10 Ml IV 10 ml BID CHRISTAL Administration Sodium Chloride 10 ml 03/01/19 00:35 Sodium Chloride Flush Syringe 10 Ml IV PRN PRN LINE FLUSH Nutrition/Malnutrition Assess - Dietary Evaluation Nutrition/Malnutrition Findings: Nutrition Notes Start: 03/01/19 15:13 Freq: Status: Active Protocol: Document 03/05/19 16:42 RM (Rec: 03/05/19 16:43 RM [id number]) Nutrition Notes Initial or Follow up Brief Note Subjective/Other Information Consulted for malnutrition. Pt already being followed. Nutrition Intervention Follow-Up By: 03/12/19 Additional Comments Follow for PO and ONS intakes
[2019-03-09 13:41] LABS: BUN/Creatinine Ratio 20; Blood Urea Nitrogen 10 mg/dL (7-17); Calcium 8.8 mg/dL (8.4-10.2); Hemolysis Index 5
[2019-03-10] MEDS: HumuLIN R SUB-Q SCH ×4 (07:30→21:55)
[2019-03-10 08:31] LABS: Hemoglobin 11.7 gm/dl (10.1-14.3); Mean Corpuscular HGB Conc 34 % (30-34); Mean Corpuscular Volume 89 fl (79-97); Platelet Count 192 K/mm3 (140-440); Red Blood Count 3.92 M/mm3 (3.65-5.03)
[2019-03-10 08:54] LABS: BUN/Creatinine Ratio 18; Blood Urea Nitrogen 9 mg/dL (7-17); Calcium 8.9 mg/dL (8.4-10.2); Hemolysis Index 15
[2019-03-10] MEDS: D5W 1,000 ML IV SCH (10:06)
[2019-03-10] MEDS: HEPARIN SUB-Q SCH (10:06)
[2019-03-10] MEDS: SODIUM CHLORIDE FLUSH SYRINGE 10 ML IV SCH (10:07)
--- NOTE | 2019-03-10 14:48 | Progress Note ---
Assessment and Plan Assessment and plan: Patient is a 53 woman who is homeless and lives out her van with a history of hypertension, type 2 DM, afib, COPD and bilateral leg/feet necrotizing fascitis s/p bilateral BKA with PAD admitted for pressure wound, Blood cultures 03/01/2019 coag negative Staph Blood cultures 03/03/2019 pending Left wound culture growing Staph species Sepsis cellulitis; wound care Staph aureus, coag negative bacteremia: continue Abx, ID following Left knee pressure ulcer, stage 3: wound care, abx Severe malnutrition, bmi 16.8: consulted Motion Picture Camera Operator ARF most likely ATN and vasomotor nephropathy, poa, resolved Disposition: continue inpatient, awaiting iv abx setup as patient is homeless, trying to find placement difficult without funding History Interval history: Patient was seen and examined. Follow-up on current diagnosis of cellulitis. No overnight events reported to me. Patient denies any chest pain, shortness breath, nausea/vomiting or severe headaches. Imaging, nursing note, chart, labs and old chart reviewed. Discussed with patient. Hospitalist Physical - Physical exam Narrative exam: Gen: thin frail, NAD, Awake, Alert, Orientated HEENT: NCAT, EOMI, PERRL, OP Clear Neck: supple, no adenopathy, no thyromegaly, no JVD CVS/Heart: RRR, normal S1S2, pulses present bilaterally Chest/Lungs: CTA B, Symmetrical chest expansion, good air entry bilaterally GI/Abdomen: soft, NTND, good bowel sounds, no guarding or rebound /Bladder: no suprapubic tenderness, no CVA or paraspinal tenderness Extermity/Skin: bilateral BKA, knee ulcer, worse on left MSK: FROM x 4 Neuro: CN 2-12 grossly intact, no new focal deficits Psych: calm - Constitutional Vitals: Temp Pulse Resp BP Pulse Ox 98.3 F 89 16 105/64 99 03/10/19 11:40 03/10/19 11:40 03/10/19 11:40 03/10/19 11:40 03/10/19 11:40 General appearance: Present: no acute distress, cachectic Results - Labs CBC & Chem 7: 03/10/19 07:51 03/10/19 07:51 Labs: Laboratory Last Values WBC 3.7 K/mm3 (4.5-11.0) L 03/10/19 07:51 RBC 3.92 M/mm3 (3.65-5.03) 03/10/19 07:51 Hgb 11.7 gm/dl (10.1-14.3) 03/10/19 07:51 Hct 35.0 % (30.3-42.9) 03/10/19 07:51 MCV 89 fl (79-97) 03/10/19 07:51 MCH 30 pg (28-32) 03/10/19 07:51 MCHC 34 % (30-34) 03/10/19 07:51 RDW 14.0 % (13.2-15.2) 03/10/19 07:51 Plt Count 192 K/mm3 (140-440) 03/10/19 07:51 Lymph % (Auto) Security Nurse 02/28/19 20:10 Parker % (Auto) Security Nurse 02/28/19 20:10 Eos % (Auto) Security Nurse 02/28/19 20:10 Baso % (Auto) Security Nurse 02/28/19 20:10 Lymph # Security Nurse 02/28/19 20:10 Parker # Security Nurse 02/28/19 20:10 Eos # Security Nurse 02/28/19 20:10 Baso # Security Nurse 02/28/19 20:10 Seg Neutrophils % Security Nurse 02/28/19 20:10 Seg Neutrophils # Security Nurse 02/28/19 20:10 Sodium 141 mmol/L (137-145) 03/10/19 07:51 Potassium 4.1 mmol/L (3.6-5.0) 03/10/19 07:51 Chloride 103.6 mmol/L (98-107) 03/10/19 07:51 Carbon Dioxide 25 mmol/L (22-30) D 03/10/19 07:51 17 mmol/L 03/10/19 07:51 BUN 9 mg/dL (7-17) 03/10/19 07:51 0.5 mg/dL (0.7-1.2) L 03/10/19 07:51 Estimated GFR > 60 ml/min 03/10/19 07:51 18 % 03/10/19 07:51 Glucose 102 mg/dL (65-100) H 03/10/19 07:51 POC Glucose 108 (70-105) H 03/10/19 11:46 Calcium 8.9 mg/dL (8.4-10.2) 03/10/19 07:51 Phosphorus 2.20 mg/dL (2.5-4.5) L D 03/02/19 05:22 Magnesium 2.10 mg/dL (1.7-2.3) 03/02/19 05:22 0.20 mg/dL (0.1-1.2) 03/05/19 04:45 < 0.2 mg/dL (0-0.2) 03/02/19 05:22 0.5 mg/dL 03/02/19 05:22 AST 21 units/L (5-40) 03/05/19 04:45 ALT 24 units/L (7-56) 03/05/19 04:45 116 units/L (35-129) 03/05/19 04:45 94 units/L (30-135) 03/05/19 04:45 < 0.010 ng/mL (0.00-0.029) 02/28/19 20:10 0.20 mg/dL (0.00-1.30) 03/03/19 15:03 NT-Pro-B Natriuret Pep 423.5 pg/mL (0-900) 02/28/19 20:10 6.2 g/dL (6.3-8.2) L 03/05/19 04:45 2.7 g/dL (3.9-5) L 03/05/19 04:45 0.8 % 03/05/19 04:45 TSH 0.439 mlU/mL (0.270-4.200) 02/28/19 20:10 Vancomycin Trough 13.8 ug/mL (5.0-20.0) 03/10/19 10:59 LILLIE Screen Negative (Negative) 03/03/19 14:55 Proteinase 3 (PR3) Ab <1.0 AI (<1.0) 03/03/19 14:55 Myeloperoxidase Ab <1.0 AI (<1.0) 03/03/19 14:55 98 mg/dL (83-193) 03/03/19 15:03 14 mg/dL (15-57) L 03/03/19 15:04 Active Medications - Current Medications Current Medications: Generic Name Dose Route Start Last Admin Trade Name Freq PRN Reason Stop Dose Admin Acetaminophen 650 mg 03/01/19 00:35 Tylenol PO Q4H PRN Pain MILD(1-3)/Fever >100.5/THOMAS Acetaminophen/Hydrocodone Bitart 1 each 03/01/19 00:35 Aurora 5/325 PO Q6H PRN Pain, Moderate (4-6) Dextrose 50 ml 03/01/19 01:44 D50w (25gm) Syringe IV PRN PRN Hypoglycemia Docusate Sodium 100 mg 03/03/19 09:31 Colace PO BID PRN Constipation Heparin Sodium (Porcine) 5,000 unit 03/01/19 10:00 03/10/19 10:06 Heparin SUB-Q 5,000 unit Q12HR CHRISTAL Administration Vancomycin HCl 750 mg/ Sodium 265 mls @ 166.667 mls/hr 03/02/19 12:00 03/09/19 23:35 Chloride IV 03/17/19 13:36 166.667 mls/hr Q12H CHRISTAL Administration Dextrose 1,000 mls @ 75 mls/hr 03/09/19 13:00 03/10/19 10:06 D5w IV 75 mls/hr DIRECT CHRISTAL Administration Insulin Human Regular 0 units 03/01/19 07:30 03/10/19 07:30 Humulin R SUB-Q Not Given ACHS CHRISTAL Protocol Morphine Sulfate 2 mg 03/01/19 00:35 Morphine IV Q4H PRN Pain, Moderate (4-6) Ondansetron HCl 4 mg 03/01/19 00:35 Zofran IV Q8H PRN Nausea And Vomiting Sodium Chloride 10 ml 03/01/19 10:00 03/10/19 10:07 Sodium Chloride Flush Syringe 10 Ml IV 10 ml BID CHRISTAL Administration Sodium Chloride 10 ml 03/01/19 00:35 Sodium Chloride Flush Syringe 10 Ml IV PRN PRN LINE FLUSH Nutrition/Malnutrition Assess - Dietary Evaluation Nutrition/Malnutrition Findings: Nutrition Notes Start: 03/01/19 15:13 Freq: Status: Active Protocol: Document 03/05/19 16:42 RM (Rec: 03/05/19 16:43 RM [id number]) Nutrition Notes Initial or Follow up Brief Note Subjective/Other Information Consulted for malnutrition. Pt already being followed. Nutrition Intervention Follow-Up By: 03/12/19 Additional Comments Follow for PO and ONS intakes
[2019-03-10] MEDS: VANCOMYCIN 750 MG in NACL 0.9% 250ML 250 ML IV SCH ×2 (19:45→19:55)
[2019-03-11] MEDS: D5W 1,000 ML IV SCH ×2 (03:17→16:23)
[2019-03-11] MEDS: SODIUM CHLORIDE FLUSH SYRINGE 10 ML IV SCH ×3 (05:45→23:15)
[2019-03-11] MEDS: HEPARIN SUB-Q SCH ×3 (05:47→21:18)
[2019-03-11 06:11] LABS: Hematocrit 35.8 % (30.3-42.9); Hemoglobin 11.9 gm/dl (10.1-14.3); Mean Corpuscular HGB Conc 33 % (30-34); Mean Corpuscular Volume 90 fl (79-97); Platelet Count 181 K/mm3 (140-440); Red Blood Count 3.98 M/mm3 (3.65-5.03)
[2019-03-11 06:36] LABS: Blood Urea Nitrogen 9 mg/dL (7-17)
[2019-03-11 06:37] LABS: BUN/Creatinine Ratio 15; Calcium 8.9 mg/dL (8.4-10.2); Hemolysis Index 2
[2019-03-11] MEDS: HumuLIN R SUB-Q SCH ×4 (07:30→22:45)
[2019-03-11] MEDS: VANCOMYCIN 750 MG in NACL 0.9% 250ML 250 ML IV SCH ×2 (08:29→19:59)
--- NOTE | 2019-03-11 12:42 | Progress Note ---
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 will need vancomycin 750 mg IV q12 hour for total 2 weeks until 03/17/2019. Brief History Patient is a 53 woman who is homeless and lives out her van with a history of hypertension, type 2 DM, afib, COPD and bilateral leg/feet necrotizing fascitis s/p bilateral BKA with PAD admitted for pressure wound, Blood cultures 03/01/2019 coag negative Staph Blood cultures 03/03/2019 pending Left wound culture growing Staph species Hospitalist Physical Gen: thin frail, NAD, Awake, Alert, Orientated HEENT: NCAT, EOMI, PERRL, OP Clear Neck: supple, no adenopathy, no thyromegaly, no JVD CVS/Heart: RRR, normal S1S2, pulses present bilaterally Chest/Lungs: CTA B, Symmetrical chest expansion, good air entry bilaterally GI/Abdomen: soft, NTND, good bowel sounds, no guarding or rebound /Bladder: no suprapubic tenderness, no CVA or paraspinal tenderness Extermity/Skin: bilateral BKA, knee ulcer, worse on left MSK: FROM x 4 Neuro: CN 2-12 grossly intact, no new focal deficits Psych: calm Subjective Date of service: 03/11/19 Principal diagnosis: sepsis Interval history: patient seen and examined, no acute issue discharge pending on placement Objective - Constitutional Vitals: Vital Signs - 12hr 03/11/19 05:05 Temperature 98.5 F Pulse Rate 93 H Respiratory 16 Rate Blood Pressure 105/61 O2 Sat by Pulse 96 Oximetry - Labs CBC & Chem 7: 03/12/19 06:55 03/12/19 06:55 Labs: Abnormal lab results 03/10/19 03/11/19 03/11/19 Range/Units 18:10 05:58 05:58 WBC 2.9 L (4.5-11.0) K/mm3 Creatinine 0.6 L (0.7-1.2) mg/dL Glucose 105 H (65-100) mg/dL POC Glucose 109 H (70-105)
[2019-03-12] MEDS: TYLENOL PO PRN ×2 (00:44→17:07)
[2019-03-12 07:17] LABS: Hematocrit 34.6 % (30.3-42.9); Hemoglobin 11.9 gm/dl (10.1-14.3); Mean Corpuscular HGB Conc 34 % (30-34); Mean Corpuscular Volume 88 fl (79-97); Platelet Count 176 K/mm3 (140-440); Red Blood Count 3.92 M/mm3 (3.65-5.03); Red Cell Distribution Width 14.3 % (13.2-15.2)
[2019-03-12 07:37] LABS: BUN/Creatinine Ratio 12; Blood Urea Nitrogen 7 mg/dL (7-17); Calcium 8.7 mg/dL (8.4-10.2); Hemolysis Index 0
[2019-03-12] MEDS: VANCOMYCIN 750 MG in NACL 0.9% 250ML 250 ML IV SCH ×2 (08:05→19:46)
[2019-03-12] MEDS: HEPARIN SUB-Q SCH ×2 (09:35→22:17)
[2019-03-12] MEDS: SODIUM CHLORIDE FLUSH SYRINGE 10 ML IV SCH ×2 (09:36→22:23)
[2019-03-12] MEDS: D5W 1,000 ML IV SCH (09:41)
[2019-03-12] MEDS: HumuLIN R SUB-Q SCH ×3 (09:42→22:10)
--- NOTE | 2019-03-12 16:38 | Progress Note ---
Assessment and Plan Sepsis cellulitis; wound care Staph aureus, coag negative bacteremia: continue Abx, ID following Left knee pressure ulcer, stage 3: wound care, abx Severe malnutrition, bmi 16.8: consulted Marine Farmer ARF most likely ATN and vasomotor nephropathy, poa, resolved Disposition: continue inpatient, awaiting iv abx setup as patient is homeless, trying to find placement difficult without funding. will need vancomycin 750 mg IV q12 hour for total 2 weeks until 03/17/2019. Brief History Patient is a 53 woman who is homeless and lives out her van with a history of hypertension, type 2 DM, afib, COPD and bilateral leg/feet necrotizing fascitis s/p bilateral BKA with PAD admitted for pressure wound, Blood cultures 03/01/2019 coag negative Staph Blood cultures 03/03/2019 pending Left wound culture growing Staph species Hospitalist Physical Gen: thin frail, NAD, Awake, Alert, Orientated HEENT: NCAT, EOMI, PERRL, OP Clear Neck: supple, no adenopathy, no thyromegaly, no JVD CVS/Heart: RRR, normal S1S2, pulses present bilaterally Chest/Lungs: CTA B, Symmetrical chest expansion, good air entry bilaterally GI/Abdomen: soft, NTND, good bowel sounds, no guarding or rebound /Bladder: no suprapubic tenderness, no CVA or paraspinal tenderness Extermity/Skin: bilateral BKA, knee ulcer, worse on left MSK: FROM x 4 Neuro: CN 2-12 grossly intact, no new focal deficits Psych: calm Subjective Date of service: 03/12/19 Principal diagnosis: sepsis Interval history: patient seen and examined, no acute issue discharge pending on placement Objective - Constitutional Vitals: Vital Signs - 12hr 03/12/19 03/12/19 05:02 12:10 Temperature 99.8 F H 100.6 F H Pulse Rate 103 H 96 H Respiratory 17 16 Rate Blood Pressure 111/59 120/69 O2 Sat by Pulse 98 100 Oximetry - Labs CBC & Chem 7: 03/12/19 06:55 03/12/19 06:55 Labs: Abnormal lab results 03/11/19 03/12/19 03/12/19 Range/Units 18:38 06:55 06:55 WBC 3.2 L (4.5-11.0) K/mm3 Sodium 133 L (137-145) mmol/L Chloride 96.5 L (98-107) mmol/L Creatinine 0.6 L (0.7-1.2) mg/dL Glucose 105 H (65-100) mg/dL POC Glucose 146 H (70-105) 03/12/19 Range/Units 11:08 WBC (4.5-11.0) K/mm3 Sodium (137-145) mmol/L Chloride (98-107) mmol/L Creatinine (0.7-1.2) mg/dL Glucose (65-100) mg/dL POC Glucose 135 H (70-105)
[2019-03-13] MEDS: TYLENOL PO PRN ×2 (04:12→17:40)
[2019-03-13] MEDS: D5W 1,000 ML IV SCH ×2 (04:17→22:03)
[2019-03-13] MEDS: HumuLIN R SUB-Q SCH ×4 (07:30→22:01)
[2019-03-13] MEDS: VANCOMYCIN 750 MG in NACL 0.9% 250ML 250 ML IV SCH ×2 (07:30→20:41)
[2019-03-13] MEDS: HEPARIN SUB-Q SCH ×2 (09:59→22:03)
[2019-03-13] MEDS: SODIUM CHLORIDE FLUSH SYRINGE 10 ML IV SCH ×2 (10:01→22:05)
--- NOTE | 2019-03-13 15:26 | Progress Note ---
Assessment and Plan Sepsis cellulitis; wound care Staph aureus, coag negative bacteremia: continue Abx, ID following Left knee pressure ulcer, stage 3: wound care, abx Severe malnutrition, bmi 16.8: consulted Cork Grinder ARF most likely ATN and vasomotor nephropathy, poa, resolved Disposition: continue inpatient, awaiting iv abx setup as patient is homeless, trying to find placement difficult without funding. will need vancomycin 750 mg IV q12 hour for total 2 weeks until 03/17/2019. Brief History Patient is a 53 woman who is homeless and lives out her van with a history of hypertension, type 2 DM, afib, COPD and bilateral leg/feet necrotizing fascitis s/p bilateral BKA with PAD admitted for pressure wound, Blood cultures 03/01/2019 coag negative Staph Blood cultures 03/03/2019 pending Left wound culture growing Staph species Hospitalist Physical Gen: thin frail, NAD, Awake, Alert, Orientated HEENT: NCAT, EOMI, PERRL, OP Clear Neck: supple, no adenopathy, no thyromegaly, no JVD CVS/Heart: RRR, normal S1S2, pulses present bilaterally Chest/Lungs: CTA B, Symmetrical chest expansion, good air entry bilaterally GI/Abdomen: soft, NTND, good bowel sounds, no guarding or rebound /Bladder: no suprapubic tenderness, no CVA or paraspinal tenderness Extermity/Skin: bilateral BKA, knee ulcer, worse on left MSK: FROM x 4 Neuro: CN 2-12 grossly intact, no new focal deficits Psych: calm Subjective Date of service: 03/13/19 Principal diagnosis: sepsis Interval history: patient seen and examined, no acute issue discharge pending on placement Objective - Constitutional Vitals: Vital Signs - 12hr 03/13/19 05:55 Temperature 99.9 F H Pulse Rate 105 H Respiratory 18 Rate Blood Pressure 107/63 O2 Sat by Pulse 97 Oximetry - Labs CBC & Chem 7: 03/12/19 06:55 03/12/19 06:55 Labs: Abnormal lab results 03/12/19 03/13/19 Range/Units 18:04 11:30 POC Glucose 118 H 120 H (70-105)
[2019-03-14] MEDS: BENADRYL PO PRN ×3 (01:38→22:29)
[2019-03-14] MEDS: HumuLIN R SUB-Q SCH ×4 (07:30→22:22)
[2019-03-14] MEDS: VANCOMYCIN 750 MG in NACL 0.9% 250ML 250 ML IV SCH ×2 (08:48→20:16)
[2019-03-14] MEDS: HEPARIN SUB-Q SCH ×2 (11:39→22:23)
[2019-03-14] MEDS: SODIUM CHLORIDE FLUSH SYRINGE 10 ML IV SCH ×2 (11:43→22:22)
--- NOTE | 2019-03-14 13:09 | Progress Note ---
Assessment and Plan Sepsis cellulitis; wound care Staph aureus, coag negative bacteremia: continue Abx, ID following Left knee pressure ulcer, stage 3: wound care, abx Severe malnutrition, bmi 16.8: consulted Computational Sciences Professor ARF most likely ATN and vasomotor nephropathy, poa, resolved Disposition: continue inpatient, awaiting iv abx setup as patient is homeless, trying to find placement difficult without funding. will need vancomycin 750 mg IV q12 hour for total 2 weeks until 03/17/2019. Brief History Patient is a 53 woman who is homeless and lives out her van with a history of hypertension, type 2 DM, afib, COPD and bilateral leg/feet necrotizing fascitis s/p bilateral BKA with PAD admitted for pressure wound, Blood cultures 03/01/2019 coag negative Staph Blood cultures 03/03/2019 pending Left wound culture growing Staph species Hospitalist Physical Gen: thin frail, NAD, Awake, Alert, Orientated HEENT: NCAT, EOMI, PERRL, OP Clear Neck: supple, no adenopathy, no thyromegaly, no JVD CVS/Heart: RRR, normal S1S2, pulses present bilaterally Chest/Lungs: CTA B, Symmetrical chest expansion, good air entry bilaterally GI/Abdomen: soft, NTND, good bowel sounds, no guarding or rebound /Bladder: no suprapubic tenderness, no CVA or paraspinal tenderness Extermity/Skin: bilateral BKA, knee ulcer, worse on left MSK: FROM x 4 Neuro: CN 2-12 grossly intact, no new focal deficits Psych: calm Subjective Date of service: 03/14/19 Principal diagnosis: sepsis Interval history: patient seen and examined, no acute issue discharge pending on placement Objective - Constitutional Vitals: Vital Signs - 12hr 03/14/19 03/14/19 03/14/19 05:09 11:35 12:45 Temperature 99.8 F H 99.8 F H Pulse Rate 108 H 91 H Respiratory 22 18 Rate Respiratory 20 Rate [Right Foot] Blood Pressure 107/63 103/55 O2 Sat by Pulse 100 100 Oximetry 03/14/19 12:46 Temperature Pulse Rate Respiratory 20 Rate Respiratory Rate [Right Foot] Blood Pressure O2 Sat by Pulse Oximetry - Labs CBC & Chem 7: 03/12/19 06:55 03/12/19 06:55 Labs: Abnormal lab results 03/13/19 03/14/19 03/14/19 Range/Units 17:13 08:02 11:15 POC Glucose 112 H 107 H 142 H (70-105)
[2019-03-14] MEDS: D5W 1,000 ML IV SCH (14:52)
[2019-03-14] MEDS: TYLENOL PO PRN (17:43)
[2019-03-15] MEDS: D5W 1,000 ML IV SCH (02:42)
[2019-03-15] MEDS: HumuLIN R SUB-Q SCH ×4 (07:30→22:23)
[2019-03-15] MEDS: VANCOMYCIN 750 MG in NACL 0.9% 250ML 250 ML IV SCH ×2 (07:45→21:01)
[2019-03-15] MEDS: TYLENOL PO PRN ×2 (07:53→17:20)
--- NOTE | 2019-03-15 09:40 | Progress Note ---
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 will need vancomycin 750 mg IV q12 hour for total 2 weeks until 03/17/2019. Brief History Patient is a 53 woman who is homeless and lives out her van with a history of hypertension, type 2 DM, afib, COPD and bilateral leg/feet necrotizing fascitis s/p bilateral BKA with PAD admitted for pressure wound, Blood cultures 03/01/2019 coag negative Staph Blood cultures 03/03/2019 pending Left wound culture growing Staph species Hospitalist Physical Gen: thin frail, NAD, Awake, Alert, Orientated HEENT: NCAT, EOMI, PERRL, OP Clear Neck: supple, no adenopathy, no thyromegaly, no JVD CVS/Heart: RRR, normal S1S2, pulses present bilaterally Chest/Lungs: CTA B, Symmetrical chest expansion, good air entry bilaterally GI/Abdomen: soft, NTND, good bowel sounds, no guarding or rebound /Bladder: no suprapubic tenderness, no CVA or paraspinal tenderness Extermity/Skin: bilateral BKA, knee ulcer, worse on left MSK: FROM x 4 Neuro: CN 2-12 grossly intact, no new focal deficits Psych: calm Subjective Date of service: 03/15/19 Principal diagnosis: sepsis Interval history: patient seen and examined, no acute issue discharge pending on placement Objective - Constitutional Vitals: Vital Signs - 12hr 03/14/19 03/14/19 03/15/19 22:00 23:17 06:03 Temperature 98.6 F 101.4 F H Pulse Rate 78 98 H Respiratory 17 18 18 Rate Respiratory 20 Rate [Right Foot] Blood Pressure 101/60 101/55 O2 Sat by Pulse 99 95 Oximetry 03/15/19 07:53 Temperature Pulse Rate Respiratory 16 Rate Respiratory Rate [Right Foot] Blood Pressure O2 Sat by Pulse Oximetry - Labs CBC & Chem 7: 03/12/19 06:55 03/12/19 06:55 Labs: Abnormal lab results 03/14/19 03/14/19 03/14/19 Range/Units 11:15 16:34 21:50 POC Glucose 142 H 109 H 125 H (70-105)
[2019-03-15] MEDS: SODIUM CHLORIDE FLUSH SYRINGE 10 ML IV SCH ×2 (10:34→22:24)
[2019-03-15] MEDS: HEPARIN SUB-Q SCH ×2 (10:34→22:23)
[2019-03-16] MEDS: D5W 1,000 ML IV SCH ×2 (03:07→18:07)
[2019-03-16] MEDS: TYLENOL PO PRN ×2 (05:58→18:11)
[2019-03-16] MEDS: HumuLIN R SUB-Q SCH ×3 (07:30→16:30)
[2019-03-16] MEDS: VANCOMYCIN 750 MG in NACL 0.9% 250ML 250 ML IV SCH ×2 (07:45→21:23)
[2019-03-16] MEDS: HEPARIN SUB-Q SCH ×2 (09:50→21:23)
[2019-03-16] MEDS: SODIUM CHLORIDE FLUSH SYRINGE 10 ML IV SCH ×2 (09:51→21:23)
[2019-03-16] MEDS: BENADRYL PO PRN (09:57)
--- NOTE | 2019-03-16 14:28 | Progress Note ---
Assessment and Plan Sepsis with cellulitis; wound care, IV abx per ID Staph aureus, coag negative bacteremia: continue Abx, ID following Left knee pressure ulcer, stage 3: wound care, abx Severe malnutrition, bmi 16.8: consulted Risk Prevention Engineer ARF most likely ATN and vasomotor nephropathy, poa, resolved Febrile illness - drug fever from Vanc ?, last dose vanc tomorrow, will monitor clinically, vitals stable, will get am labs, reconsult ID following lab result Disposition: continue inpatient, awaiting iv abx setup as patient is homeless, trying to find placement difficult without funding. will need vancomycin 750 mg IV q12 hour for total 2 weeks until 03/17/2019. Brief History Patient is a 53 woman who is homeless and lives out her van with a history of hypertension, type 2 DM, afib, COPD and bilateral leg/feet necrotizing fascitis s/p bilateral BKA with PAD admitted for pressure wound, Blood cultures 03/01/2019 coag negative Staph Blood cultures 03/03/2019 pending Left wound culture growing Staph species Hospitalist Physical Gen: thin frail, NAD, Awake, Alert, Orientated HEENT: NCAT, EOMI, PERRL, OP Clear Neck: supple, no adenopathy, no thyromegaly, no JVD CVS/Heart: RRR, normal S1S2, pulses present bilaterally Chest/Lungs: CTA B, Symmetrical chest expansion, good air entry bilaterally GI/Abdomen: soft, NTND, good bowel sounds, no guarding or rebound /Bladder: no suprapubic tenderness, no CVA or paraspinal tenderness Extermity/Skin: bilateral BKA, knee ulcer, worse on left MSK: FROM x 4 Neuro: CN 2-12 grossly intact, no new focal deficits Psych: calm Subjective Date of service: 03/16/19 Principal diagnosis: sepsis Interval history: patient seen and examined, no acute issue discharge pending on placement Spiking temp Objective - Constitutional Vitals: Vital Signs - 12hr 03/16/19 03/16/19 05:49 11:16 Temperature 100.5 F H 98.6 F Pulse Rate 86 87 Respiratory 17 18 Rate Blood Pressure 101/49 96/49 O2 Sat by Pulse 96 97 Oximetry - Labs CBC & Chem 7: 03/12/19 06:55 03/12/19 06:55 Labs: Abnormal lab results 03/15/19 03/16/19 03/16/19 Range/Units 17:16 08:04 11:45 POC Glucose 109 H 106 H 139 H (70-105)
[2019-03-17] MEDS: HumuLIN R SUB-Q SCH ×5 (00:26→21:57)
[2019-03-17] MEDS: VANCOMYCIN 750 MG in NACL 0.9% 250ML 250 ML IV SCH ×2 (08:21→20:22)
[2019-03-17] MEDS: D5W 1,000 ML IV SCH (08:25)
[2019-03-17] MEDS: SODIUM CHLORIDE FLUSH SYRINGE 10 ML IV SCH ×2 (10:09→22:23)
[2019-03-17] MEDS: HEPARIN SUB-Q SCH ×2 (10:09→22:23)
[2019-03-17 10:41] LABS: Hematocrit 32.3 % (30.3-42.9); Hemoglobin 11.1 gm/dl (10.1-14.3); Mean Corpuscular HGB Conc 34 % (30-34); Mean Corpuscular Volume 88 fl (79-97); Platelet Count 123 K/mm3 (140-440); Red Blood Count 3.67 M/mm3 (3.65-5.03); Red Cell Distribution Width 14.5 % (13.2-15.2)
[2019-03-17 11:03] LABS: BUN/Creatinine Ratio 16; Blood Urea Nitrogen 8 mg/dL (7-17); Calcium 8.6 mg/dL (8.4-10.2); Hemolysis Index 2
--- NOTE | 2019-03-17 13:32 | Progress Note ---
Assessment and Plan Sepsis with cellulitis; wound care, will complete abx per ID today Staph aureus, coag negative bacteremia: continue Abx, ID following Left knee pressure ulcer, stage 3: cont wound care, treated with abx Severe malnutrition, bmi 16.8: consulted Cable Rigger ARF most likely ATN and vasomotor nephropathy, poa, resolved Febrile illness - drug fever from Vanc ?, last dose vanc today, will monitor clinically, vitals stable, reconsulted ID. Disposition: continue inpatient, awaiting iv abx setup as patient is homeless, trying to find placement difficult without funding. Required vancomycin 750 mg IV q12 hour for total 2 weeks until 03/17/2019 - today. Spiking fever now, follow blood cx. d/c when afebrile. Brief History Patient is a 53 woman who is homeless and lives out her van with a history of hypertension, type 2 DM, afib, COPD and bilateral leg/feet necrotizing fascitis s/p bilateral BKA with PAD admitted for pressure wound, Blood cultures 03/01/2019 coag negative Staph Blood cultures 03/03/2019 pending Left wound culture growing Staph species Hospitalist Physical Gen: thin frail, NAD, Awake, Alert, Orientated HEENT: NCAT, EOMI, PERRL, OP Clear Neck: supple, no adenopathy, no thyromegaly, no JVD CVS/Heart: RRR, normal S1S2, pulses present bilaterally Chest/Lungs: CTA B, Symmetrical chest expansion, good air entry bilaterally GI/Abdomen: soft, NTND, good bowel sounds, no guarding or rebound /Bladder: no suprapubic tenderness, no CVA or paraspinal tenderness Extermity/Skin: bilateral BKA, MSK: FROM x 4 Neuro: CN 2-12 grossly intact, no new focal deficits Psych: calm Subjective Date of service: 03/17/19 Principal diagnosis: sepsis Interval history: patient seen and examined, no acute issue her discharge was pending on placement Spiking temp Objective - Constitutional Vitals: Vital Signs - 12hr 03/17/19 03/17/19 05:42 11:49 Temperature 99.1 F 98.8 F Pulse Rate 96 H 96 H Respiratory 16 19 Rate Blood Pressure 98/47 98/56 O2 Sat by Pulse 96 99 Oximetry - Labs CBC & Chem 7: 03/17/19 10:13 03/17/19 10:13 Labs: Abnormal lab results 03/16/19 03/16/19 03/17/19 Range/Units 17:05 21:45 08:05 WBC (4.5-11.0) K/mm3 Plt Count (140-440) K/mm3 Creatinine (0.7-1.2) mg/dL Glucose (65-100) mg/dL POC Glucose 114 H 107 H 119 H (70-105) 03/17/19 03/17/19 03/17/19 Range/Units 10:13 10:13 11:56 WBC 2.0 L (4.5-11.0) K/mm3 Plt Count 123 L (140-440) K/mm3 Creatinine 0.5 L (0.7-1.2) mg/dL Glucose 123 H (65-100) mg/dL POC Glucose 117 H (70-105)
[2019-03-17 13:46] LABS: Bacteria,Urine 2+ /HPF (Negative); Bilirubin,Urine NEG (Negative); Blood,Urine NEG (Negative); Color,Urine Yellow (Yellow); Mucus,Urine FEW /HPF; Protein,Urine <15 mg/dL mg/dL (Negative); Urobilinogen,Urine < 2.0 mg/dL (<2.0)
--- NOTE | 2019-03-17 15:15 | Progress Note ---
Assessment and Plan Cultures: BCx 03/17 pending Blood cultures 03/01/2019 Staph hominis 4 of 4 bottles (methicillin sensitive) Blood cultures 03/03/2019 no growth Wound culture 03/03/2019 MSSA Assessment: 53 y/o female with history of diabetes, Afib, hypertension, COPD and bilateral leg/feet necrotizing fascitis s/p bilateral BKA in Aug 2018 known to ID from admission on 07/31/2019 due to severe bilateral lower extremity skin and soft tissue infection with concerns for necrotizing fasciitis transferred to [place]. Admitted on 02/28/2019 due to 24 hour-history of weakness and lightheadedness. She reports she developed a pressure wound to the left distal thigh which has been draining and it is painful: 1) Sepsis: resolved. Etiology most likely Staph hominis bacteremia. Last day of therapy 03/17 2) High grade Staph hominis bacteremia: Blood cultures 03/01/2019 Staph hominis 4 of 4 bottles. Likely from left leg wound infection ? however wound culture grew MSSA. TTE no vegetations. Per Dr Reyes in Aug 2018 found not to have PVD. XR +BKA no SQ air, no fracture. CT leg shows [id number] amputation changes. Osteopenia. No evidence for osteomyelitis or abscess on CT. 3) History of necrotizing fascitis ? of unclear etiology ? vasculitis. CRP 0.2. 4) Persistent fevers - possible drug fevers, agree with repeat BCx. Would stop vancomycin as planned in the absence of new infective symptoms and monitor and follow up repeat BCx. Recommendations: - stop vancomycin as planned after dose today. - follow-up LILLIE/C3/C4/ANCA - ID clinic f/u in 2 weeks MD [facility] C: [phone] O: [phone] F: [phone] Subjective Date of service: 03/17/19 Principal diagnosis: sepsis Interval history: Notes overnight fevers. No other acute complaints. Objective - Exam Narrative Exam: Constitutional: awake, no distress, following commands Head, Ears, Nose: Normocephalic, atraumatic. External ears, nose normal Eyes: Conjunctivae/corneas clear. No icterus. No ptosis. Neck: Supple, no meningeal signs Oral: fair dentition, moist mucous membranes Cardiovascular: S1, S2 normal. Normal rhythm Respiratory: Good air entry, clear to auscultation bilaterally GI: Soft, non-tender; bowel sounds normal. No peritoneal signs Musculoskeletal: + bilateral BKA. No stump cellulitis Skin: No rash or abscess Hem/Lymphatic: No palpable cervical or supraclavicular nodes. No lymphangitis Psych: no agitation Neurological: Moves all extremities, no focal defects - Constitutional Vitals: Vital Signs Temp Pulse Resp BP Pulse Ox 98.8 F 96 H 19 98/56 99 03/17/19 11:49 03/17/19 11:49 03/17/19 11:49 03/17/19 11:49 03/17/19 11:49 Temperature -Last 24 Hours Temperature 98.8 F Temperature 99.1 F Temperature 98.5 F Temperature 99.3 F Temperature 101.0 F - Labs CBC & Chem 7: 03/17/19 10:13 03/17/19 10:13 Labs: Abnormal lab results 03/16/19 03/16/19 03/17/19 Range/Units 17:05 21:45 08:05 WBC (4.5-11.0) K/mm3 Plt Count (140-440) K/mm3 Creatinine (0.7-1.2) mg/dL Glucose (65-100) mg/dL POC Glucose 114 H 107 H 119 H (70-105) 03/17/19 03/17/19 03/17/19 Range/Units 10:13 10:13 11:56 WBC 2.0 L (4.5-11.0) K/mm3 Plt Count 123 L (140-440) K/mm3 Creatinine 0.5 L (0.7-1.2) mg/dL Glucose 123 H (65-100) mg/dL POC Glucose 117 H (70-105)
[2019-03-18] MEDS: D5W 1,000 ML IV SCH
[2019-03-18] MEDS: HumuLIN R SUB-Q SCH ×4 (08:00→23:03)
[2019-03-18] MEDS: HEPARIN SUB-Q SCH ×2 (09:08→23:00)
--- NOTE | 2019-03-18 09:52 | Progress Note ---
Assessment and Plan Cultures: BCx 03/17 pending Blood cultures 03/01/2019 Staph hominis 4 of 4 bottles (methicillin sensitive) Blood cultures 03/03/2019 no growth Wound culture 03/03/2019 MSSA Blood cultures 03/17/2019 in progress Assessment: 53 y/o female with history of diabetes, Afib, hypertension, COPD and bilateral leg/feet necrotizing fascitis s/p bilateral BKA in Aug 2018 known to ID from admission on 07/31/2019 due to severe bilateral lower extremity skin and soft tissue infection with concerns for necrotizing fasciitis transferred to [place]. Admitted on 02/28/2019 due to 24 hour-history of weakness and lightheadedness. She reports she developed a pressure wound to the left distal thigh which has been draining and it is painful: 1) Sepsis: resolved. Etiology most likely Staph hominis bacteremia. Last day of therapy 03/17. LILLIE negative. C3 98. C4 14. 2) High grade Staph hominis bacteremia: Blood cultures 03/01/2019 Staph hominis 4 of 4 bottles. Likely from left leg wound infection ? however wound culture grew MSSA. TTE no vegetations. Per Dr Reyes in Aug 2018 found not to have PVD. XR +BKA no SQ air, no fracture. CT leg shows [id number]-[id number] amputation changes. Osteopenia. No evidence for osteomyelitis or abscess on CT. 3) History of necrotizing fascitis ? of unclear etiology ? vasculitis. CRP 0.2. 4) Persistent fevers - Improving. possible drug fevers. Vancomycin discontinued. Follow-up repeat blood cultures Recommendations: -monitor off antibiotics -follow-up repeat blood cultures - follow-up ANCA - ID clinic f/u in 2 weeks (sent to recruiting scheduler) [facility] M: [phone] O:[phone] Subjective Date of service: 03/18/19 Principal diagnosis: sepsis Interval history: Patient seen and examined. Reports no acute distress or SOB. No current fevers. Objective - Exam Narrative Exam: Constitutional: Awake. Alert. No acute distress Head, Ears, Nose: Normocephalic, atraumatic. External ears, nose normal Eyes: Conjunctivae/corneas clear. No icterus. No ptosis. Neck: Supple, no meningeal signs Oral: fair dentition, moist mucous membranes Cardiovascular: S1, S2 normal. Normal rhythm Respiratory: Good air entry, clear to auscultation bilaterally GI: Soft, non-tender; bowel sounds normal. No peritoneal signs Musculoskeletal: + bilateral BKA. No stump cellulitis Skin: No rash or abscess Hem/Lymphatic: No palpable cervical or supraclavicular nodes. No lymphangitis Psych: no agitation Neurological: Moves all extremities, no focal defects - Constitutional Vitals: Vital Signs Temp Pulse Resp BP Pulse Ox 100.1 F H 91 H 16 97/50 100 03/18/19 05:17 03/18/19 05:17 03/18/19 05:17 03/18/19 05:17 03/18/19 05:17 Temperature -Last 24 Hours Temperature 100.1 F Temperature 98.7 F Temperature 99.4 F Temperature 98.8 F - Labs CBC & Chem 7: 03/17/19 10:13 03/17/19 10:13 Labs: Abnormal lab results 03/17/19 03/17/19 03/17/19 Range/Units 10:13 10:13 11:56 WBC 2.0 L (4.5-11.0) K/mm3 Plt Count 123 L (140-440) K/mm3 Creatinine 0.5 L (0.7-1.2) mg/dL Glucose 123 H (65-100) mg/dL POC Glucose 117 H (70-105) 03/17/19 Range/Units 16:33 WBC (4.5-11.0) K/mm3 Plt Count (140-440) K/mm3 Creatinine (0.7-1.2) mg/dL Glucose (65-100) mg/dL POC Glucose 115 H (70-105)
--- NOTE | 2019-03-18 18:05 | Progress Note ---
Assessment and Plan Assessment and plan: 53-year-old female patient with multiple medical problems like diabetes, Afib, hypertension, COPD and bilateral leg/feet necrotizing fascitis s/p bilateral BKA in Aug 2018 with severe bilateral lower extremity skin and soft tissue infection with concerns for necrotizing fasciitis transferred to [place]. Admitted on 02/28/2019 due to 24 hour-history of weakness and lightheadedness. She reports sh e developed a pressure wound to the left distal thigh which has been draining and it is painful: Blood cultures 03/01/2019 coag negative Staph Blood cultures 03/03/2019 pending Left wound culture growing Staph species --Sepsis with cellulitis; wound care, will completed abx , monitor off antibiotics --Staph aureus, coag negative bacteremia: ID following, she and completed antibiotics till 03/17/2019 Vanco discontinued yesterday --Left knee pressure ulcer, stage 3: cont wound care, treated with abx --Severe malnutrition, bmi 16.8: Nutrition supplements , supportive care, [employer] following --ARF most likely ATN and vasomotor nephropathy, poa, resolved --Febrile illness /persistent fevers: Possible drug ,Off antibiotics, closely monitor off antibiotics. --DVT prophylaxis Heparin, renal dose, --discharge planning; patient is homeless, DC planning took a small management Possible discharge in 1-2 days if stable History Interval history: Patient seen and examined medical records reviewed Patient has persistent fevers, completed antibiotics MAXIMUM [id number] f, last 24 hours Pains of generalized weakness and fatigue Hospitalist Physical - Constitutional Vitals: Temp Pulse Resp BP Pulse Ox 98.7 F 82 18 96/50 96 03/18/19 11:51 03/18/19 11:51 03/18/19 11:51 03/18/19 11:51 03/18/19 11:51 General appearance: Present: no acute distress, cachectic - EENT Eyes: Present: PERRL, EOM intact - Neck Neck: Present: supple, normal ROM - Respiratory Respiratory effort: normal Respiratory: bilateral: diminished, rales, negative: rhonchi, wheezing - Cardiovascular Rhythm: regular Heart Sounds: Present: S1 & S2 - Extremities Extremities: no ischemia, No edema - Abdominal General gastrointestinal: soft, non-tender, non-distended, normal bowel sounds - Integumentary Integumentary: Present: clear, warm - Psychiatric Psychiatric: cooperative - Neurologic Neurologic: moves all extremities Results - Labs CBC & Chem 7: 03/17/19 10:13 03/17/19 10:13 Labs: Laboratory Last Values WBC 2.0 K/mm3 (4.5-11.0) L 03/17/19 10:13 RBC 3.67 M/mm3 (3.65-5.03) 03/17/19 10:13 Hgb 11.1 gm/dl (10.1-14.3) 03/17/19 10:13 Hct 32.3 % (30.3-42.9) 03/17/19 10:13 MCV 88 fl (79-97) 03/17/19 10:13 MCH 30 pg (28-32) 03/17/19 10:13 MCHC 34 % (30-34) 03/17/19 10:13 RDW 14.5 % (13.2-15.2) 03/17/19 10:13 Plt Count 123 K/mm3 (140-440) L 03/17/19 10:13 Lymph % (Auto) Delivery Associate 02/28/19 20:10 [place] % (Auto) Delivery Associate 02/28/19 20:10 Eos % (Auto) Delivery Associate 02/28/19 20:10 Baso % (Auto) Delivery Associate 02/28/19 20:10 Lymph # Delivery Associate 02/28/19 20:10 [place] # Delivery Associate 02/28/19 20:10 Eos # Delivery Associate 02/28/19 20:10 Baso # Delivery Associate 02/28/19 20:10 Seg Neutrophils % Delivery Associate 02/28/19 20:10 Seg Neutrophils # Delivery Associate 02/28/19 20:10 Sodium 137 mmol/L (137-145) 03/17/19 10:13 Potassium 3.8 mmol/L (3.6-5.0) 03/17/19 10:13 Chloride 100.3 mmol/L (98-107) 03/17/19 10:13 Carbon Dioxide 26 mmol/L (22-30) 03/17/19 10:13 15 mmol/L 03/17/19 10:13 BUN 8 mg/dL (7-17) 03/17/19 10:13 0.5 mg/dL (0.7-1.2) L 03/17/19 10:13 Estimated GFR > 60 ml/min 03/17/19 10:13 16 % 03/17/19 10:13 Glucose 123 mg/dL (65-100) H 03/17/19 10:13 POC Glucose 108 (70-105) H 03/18/19 11:28 Calcium 8.6 mg/dL (8.4-10.2) 03/17/19 10:13 Phosphorus 2.20 mg/dL (2.5-4.5) L D 03/02/19 05:22 Magnesium 2.10 mg/dL (1.7-2.3) 03/02/19 05:22 0.20 mg/dL (0.1-1.2) 03/05/19 04:45 < 0.2 mg/dL (0-0.2) 03/02/19 05:22 0.5 mg/dL 03/02/19 05:22 AST 21 units/L (5-40) 03/05/19 04:45 ALT 24 units/L (7-56) 03/05/19 04:45 116 units/L (35-129) 03/05/19 04:45 94 units/L (30-135) 03/05/19 04:45 < 0.010 ng/mL (0.00-0.029) 02/28/19 20:10 0.20 mg/dL (0.00-1.30) 03/03/19 15:03 NT-Pro-B Natriuret Pep 423.5 pg/mL (0-900) 02/28/19 20:10 6.2 g/dL (6.3-8.2) L 03/05/19 04:45 2.7 g/dL (3.9-5) L 03/05/19 04:45 0.8 % 03/05/19 04:45 TSH 0.439 mlU/mL (0.270-4.200) 02/28/19 20:10 Yellow (Yellow) 03/17/19 13:38 Clear (Clear) 03/17/19 13:38 7.0 (5.0-7.0) 03/17/19 13:38 Ur Specific [place] 1.011 (1.003-1.030) 03/17/19 13:38 <15 mg/dl mg/dL (Negative) 03/17/19 13:38 Neg mg/dL (Negative) 03/17/19 13:38 Neg mg/dL (Negative) 03/17/19 13:38 Neg (Negative) 03/17/19 13:38 Neg (Negative) 03/17/19 13:38 Neg (Negative) 03/17/19 13:38 < 2.0 mg/dL (<2.0) 03/17/19 13:38 Ur Leukocyte Esterase Neg (Negative) 03/17/19 13:38 2.0 /HPF (0.0-6.0) 03/17/19 13:38 4.0 /HPF (0.0-6.0) 03/17/19 13:38 U Epithel Cells (Auto) 1.0 /HPF (0-13.0) 03/17/19 13:38 2+ /HPF (Negative) 03/17/19 13:38 Few /HPF 03/17/19 13:38 Vancomycin Trough 13.8 ug/mL (5.0-20.0) 03/10/19 10:59 LILLIE Screen Negative (Negative) 03/03/19 14:55 Proteinase 3 (PR3) Ab <1.0 AI (<1.0) 03/03/19 14:55 Myeloperoxidase Ab <1.0 AI (<1.0) 03/03/19 14:55 98 mg/dL (83-193) 03/03/19 15:03 14 mg/dL (15-57) L 03/03/19 15:04 Active Medications - Current Medications Current Medications: Generic Name Dose Route Start Last Admin Trade Name Freq PRN Reason Stop Dose Admin Acetaminophen 650 mg 03/01/19 00:35 03/16/19 18:11 Tylenol PO 650 mg Q4H PRN Administration Pain MILD(1-3)/Fever >100.5/THOMAS Acetaminophen/Hydrocodone Bitart 1 each 03/01/19 00:35 Inez 5/325 PO Q6H PRN Pain, Moderate (4-6) Dextrose 50 ml 03/01/19 01:44 D50w (25gm) Syringe IV PRN PRN Hypoglycemia Diphenhydramine HCl 25 mg 03/13/19 23:40 03/16/19 09:57 Benadryl PO 25 mg Q6H PRN Administration Itching Docusate Sodium 100 mg 03/03/19 09:31 Colace PO BID PRN Constipation Heparin Sodium (Porcine) 5,000 unit 03/01/19 10:00 03/18/19 09:08 Heparin SUB-Q 5,000 unit Q12HR CHRISTAL Administration Insulin Human Regular 0 units 03/01/19 07:30 03/18/19 12:32 Humulin R SUB-Q Not Given ACHS CHRISTAL Protocol Morphine Sulfate 2 mg 03/01/19 00:35 Morphine IV Q4H PRN Pain, Moderate (4-6) Ondansetron HCl 4 mg 03/01/19 00:35 03/13/19 05:53 Zofran IV 4 mg Q8H PRN Administration Nausea And Vomiting Sodium Chloride 10 ml 03/01/19 10:00 03/17/19 22:23 Sodium Chloride Flush Syringe 10 Ml IV 10 ml BID CHRISTAL Administration Sodium Chloride 10 ml 03/01/19 00:35 Sodium Chloride Flush Syringe 10 Ml IV PRN PRN LINE FLUSH Nutrition/Malnutrition Assess - Dietary Evaluation Nutrition/Malnutrition Findings: Nutrition Notes Start: 03/01/19 15:13 Freq: Status: Active Protocol: Document 03/18/19 10:32 RM (Rec: 03/18/19 10:37 RM [id number]) Nutrition Notes Initial or Follow up Reassessment Current Diagnosis Acute Kidney Injury,COPD, Diabetes Other Pertinent Diagnosis Rhabdomyolysis, (L) knee cellulitis, bilat BKA Current Diet Consistent CHO w/Glucerna BID Labs/Tests Reviewed Pertinent Medications Zofran Height 5 ft 6 in Weight 47.3 kg [place] Body Weight (kg) 59.09 BMI 16.8 Subjective/Other Information Pt stated that her appetite is good and that she eats all of her meals. Also stated that she drinks the Glucerna. Percent of energy/protein needs met: 100%/100% Burn Absent Trauma Absent #1 Nutrition Diagnosis Predicted suboptimal energy intake As Evidenced by Signs and Symptoms pt meeting 100% of calorie and protein needs Diagnosis Progress(for reassessment Resolved documentation) Is patient on ventilator? No Is Patient Ambulatory and/or Out of Bed No REE-([facility]-confined to bed) 1318.224 Kcal/Kg value to use for calculation 42 Approximate Energy Requirements Using 1987 kcal/Kg Calculation Used for Recommendations Kcal/kg Additional Notes Pro needs 1.25-1.5g/k-80g /day Fluid needs 1ml/kcal Nutrition Intervention Change Diet Order: Continue current diet order Add Supplement/Snack (indicate name/kcal D/C /protein ) Goal #1 Continue to meet least 75% energy and pro needs via PO intakes Anticipated Discharge Needs: Continue ONS 1-2 times daily if necessary Follow-Up By: 03/25/19 Additional Comments Follow for PO intakes
[2019-03-18] MEDS ORDERED: NACL 0.9% 1000 ML 1,000 ML IV SCH (19:00)
[2019-03-18] MEDS: SODIUM CHLORIDE FLUSH SYRINGE 10 ML IV SCH ×2 (20:12→23:03)
[2019-03-19] MEDS: HumuLIN R SUB-Q SCH ×4 (09:03→22:47)
--- NOTE | 2019-03-19 09:28 | Progress Note ---
Assessment and Plan Cultures: BCx 03/17 pending Blood cultures 03/01/2019 Staph hominis 4 of 4 bottles (methicillin sensitive) Blood cultures 03/03/2019 no growth Wound culture 03/03/2019 MSSA Blood cultures 03/17/2019 no growth to date Assessment: 53 y/o female with history of diabetes, Afib, hypertension, COPD and bilateral leg/feet necrotizing fascitis s/p bilateral BKA in Aug 2018 known to ID from admission on 07/31/2019 due to severe bilateral lower extremity skin and soft tissue infection with concerns for necrotizing fasciitis transferred to [place]. Admitted on 02/28/2019 due to 24 hour-history of weakness and lightheadedness. She reports she developed a pressure wound to the left distal thigh which has b een draining and it is painful: 1) Sepsis: resolved. Etiology most likely Staph hominis bacteremia. Last day of therapy 03/17. LILLIE negative. C3 98. C4 14. 2) High grade Staph hominis bacteremia: Blood cultures 03/01/2019 Staph hominis 4 of 4 bottles. Likely from left leg wound infection ? however wound culture grew MSSA. TTE no vegetations. Per Dr Reyes in Aug 2018 found not to have PVD. XR +BKA no SQ air, no fracture. CT leg shows [id number] amputation changes. Osteopenia. No evidence for osteomyelitis or abscess on CT. 3) History of necrotizing fascitis ? of unclear etiology ? vasculitis. CRP 0.2. 4) Persistent fevers - No fevers in >24 hours. Recommendations: -monitor off antibiotics -follow-up repeat blood cultures - ID clinic f/u in 2 weeks (sent to planner scheduler) [facility] M: [phone] O:[phone] Subjective Date of service: 03/19/19 Principal diagnosis: sepsis Interval history: Patient seen and examined. Reports no acute distress or SOB. No current fevers. Objective - Constitutional Vitals: Vital Signs Temp Pulse Resp BP Pulse Ox 98.1 F 73 16 90/50 98 03/19/19 06:18 03/19/19 06:18 03/19/19 06:18 03/19/19 06:18 03/19/19 06:18 Temperature -Last 24 Hours Temperature 98.1 F Temperature 98.2 F Temperature 98.2 F Temperature 98.7 F - Labs CBC & Chem 7: 03/17/19 10:13 03/17/19 10:13 Labs: Abnormal lab results 03/18/19 03/18/19 Range/Units 11:28 17:26 POC Glucose 108 H 106 H (70-105)
[2019-03-19] MEDS: SODIUM CHLORIDE FLUSH SYRINGE 10 ML IV SCH ×2 (10:01→22:50)
[2019-03-19] MEDS: HEPARIN SUB-Q SCH ×2 (10:01→22:48)
--- NOTE | 2019-03-19 18:31 | Progress Note ---
Assessment and Plan Assessment and plan: 53-year-old female patient with multiple medical problems like diabetes, Afib, hypertension, COPD and bilateral leg/feet necrotizing fascitis s/p bilateral BKA in Aug 2018 with severe bilateral lower extremity skin and soft tissue infection with concerns for necrotizing fasciitis transferred to [place]. Admitted on 02/28/2019 due to 24 hour-history of weakness and lightheadedness. She reports sh e developed a pressure wound to the left distal thigh which has been draining and it is painful: Blood cultures 03/01/2019 coag negative Staph Blood cultures 03/03/2019 pending Left wound culture growing Staph species --Febrile illness /persistent fevers: Possible drug fever ,Off antibiotics, monitor off antibiotics. --Sepsis with cellulitis; wound care, completed abx , monitor off antibiotics --Staph aureus, coag negative bacteremia: ID following, completed antibiotics till 03/17/2019 --ARF most likely ATN and vasomotor nephropathy, poa, resolved --Left knee pressure ulcer, stage 3: cont wound care, treated with abx --Bilateral below-knee amputation supportive care --Severe malnutrition, bmi 16.8: Nutrition supplements , supportive care, Wet Press Tender following --DVT prophylaxis Heparin, renal dose, --discharge planning; patient is homeless, DC planning per case management Disposition ; [facility] stable History Interval history: Patient seen and examined medical records reviewed Patient seems Slightly better afebrile last 24 hours No new complaints Vital signs noted Hospitalist Physical - Constitutional Vitals: Temp Pulse Resp BP Pulse Ox 98.4 F 85 18 99/56 98 03/19/19 17:13 03/19/19 17:13 03/19/19 17:13 03/19/19 17:13 03/19/19 17:13 General appearance: Present: no acute distress, cachectic - EENT Eyes: Present: PERRL, EOM intact - Neck Neck: Present: supple, normal ROM - Respiratory Respiratory effort: normal Respiratory: bilateral: diminished, negative: rales, rhonchi, wheezing - Cardiovascular Rhythm: regular Heart Sounds: Present: S1 & S2 - Extremities Extremities: no ischemia, No edema, abnormal (bilateral below-knee amputation) - Abdominal General gastrointestinal: soft, non-tender, non-distended, normal bowel sounds - Integumentary Integumentary: Present: clear, warm - Psychiatric Psychiatric: appropriate mood/affect, cooperative - Neurologic Neurologic: CNII-XII intact, moves all extremities Results - Labs CBC & Chem 7: 03/17/19 10:13 03/17/19 10:13 Labs: Laboratory Last Values WBC 2.0 K/mm3 (4.5-11.0) L 03/17/19 10:13 RBC 3.67 M/mm3 (3.65-5.03) 03/17/19 10:13 Hgb 11.1 gm/dl (10.1-14.3) 03/17/19 10:13 Hct 32.3 % (30.3-42.9) 03/17/19 10:13 MCV 88 fl (79-97) 03/17/19 10:13 MCH 30 pg (28-32) 03/17/19 10:13 MCHC 34 % (30-34) 03/17/19 10:13 RDW 14.5 % (13.2-15.2) 03/17/19 10:13 Plt Count 123 K/mm3 (140-440) L 03/17/19 10:13 Lymph % (Auto) Customs [employer]or 02/28/19 20:10 [place] % (Auto) Customs [employer]or 02/28/19 20:10 Eos % (Auto) [employer]or 02/28/19 20:10 Baso % (Auto) [employer]or 02/28/19 20:10 Lymph # [employer]or 02/28/19 20:10 [place] # Customs [employer]or 02/28/19 20:10 Eos # Customs [employer]or 02/28/19 20:10 Baso # Customs [employer]or 02/28/19 20:10 Seg Neutrophils % Customs [employer]or 02/28/19 20:10 Seg Neutrophils # [employer]or 02/28/19 20:10 Sodium 137 mmol/L (137-145) 03/17/19 10:13 Potassium 3.8 mmol/L (3.6-5.0) 03/17/19 10:13 Chloride 100.3 mmol/L (98-107) 03/17/19 10:13 Carbon Dioxide 26 mmol/L (22-30) 03/17/19 10:13 15 mmol/L 03/17/19 10:13 BUN 8 mg/dL (7-17) 03/17/19 10:13 0.5 mg/dL (0.7-1.2) L 03/17/19 10:13 Estimated GFR > 60 ml/min 03/17/19 10:13 16 % 03/17/19 10:13 Glucose 123 mg/dL (65-100) H 03/17/19 10:13 POC Glucose 108 (70-105) H 03/19/19 16:49 Calcium 8.6 mg/dL (8.4-10.2) 03/17/19 10:13 Phosphorus 2.20 mg/dL (2.5-4.5) L D 03/02/19 05:22 Magnesium 2.10 mg/dL (1.7-2.3) 03/02/19 05:22 0.20 mg/dL (0.1-1.2) 03/05/19 04:45 < 0.2 mg/dL (0-0.2) 03/02/19 05:22 0.5 mg/dL 03/02/19 05:22 AST 21 units/L (5-40) 03/05/19 04:45 ALT 24 units/L (7-56) 03/05/19 04:45 116 units/L (35-129) 03/05/19 04:45 94 units/L (30-135) 03/05/19 04:45 < 0.010 ng/mL (0.00-0.029) 02/28/19 20:10 0.20 mg/dL (0.00-1.30) 03/03/19 15:03 NT-Pro-B Natriuret Pep 423.5 pg/mL (0-900) 02/28/19 20:10 6.2 g/dL (6.3-8.2) L 03/05/19 04:45 2.7 g/dL (3.9-5) L 03/05/19 04:45 0.8 % 03/05/19 04:45 TSH 0.439 mlU/mL (0.270-4.200) 02/28/19 20:10 Yellow (Yellow) 03/17/19 13:38 Clear (Clear) 03/17/19 13:38 7.0 (5.0-7.0) 03/17/19 13:38 Ur Specific [place] 1.011 (1.003-1.030) 03/17/19 13:38 <15 mg/dl mg/dL (Negative) 03/17/19 13:38 Neg mg/dL (Negative) 03/17/19 13:38 Neg mg/dL (Negative) 03/17/19 13:38 Neg (Negative) 03/17/19 13:38 Neg (Negative) 03/17/19 13:38 Neg (Negative) 03/17/19 13:38 < 2.0 mg/dL (<2.0) 03/17/19 13:38 Ur Leukocyte Esterase Neg (Negative) 03/17/19 13:38 2.0 /HPF (0.0-6.0) 03/17/19 13:38 4.0 /HPF (0.0-6.0) 03/17/19 13:38 U Epithel Cells (Auto) 1.0 /HPF (0-13.0) 03/17/19 13:38 2+ /HPF (Negative) 03/17/19 13:38 Few /HPF 03/17/19 13:38 Vancomycin Trough 13.8 ug/mL (5.0-20.0) 03/10/19 10:59 LILLIE Screen Negative (Negative) 03/03/19 14:55 Proteinase 3 (PR3) Ab <1.0 AI (<1.0) 03/03/19 14:55 Myeloperoxidase Ab <1.0 AI (<1.0) 03/03/19 14:55 98 mg/dL (83-193) 03/03/19 15:03 14 mg/dL (15-57) L 03/03/19 15:04 Active Medications - Current Medications Current Medications: Generic Name Dose Route Start Last Admin Trade Name Chris PRN Reason Stop Dose Admin Acetaminophen 650 mg 03/01/19 00:35 03/16/19 18:11 Tylenol PO 650 mg Q4H PRN Administration Pain MILD(1-3)/Fever >100.5/THOMAS Acetaminophen/Hydrocodone Bitart 1 each 03/01/19 00:35 [place] 5/325 PO Q6H PRN Pain, Moderate (4-6) Dextrose 50 ml 03/01/19 01:44 D50w (25gm) Syringe IV PRN PRN Hypoglycemia Diphenhydramine HCl 25 mg 03/13/19 23:40 03/16/19 09:57 Benadryl PO 25 mg Q6H PRN Administration Itching Docusate Sodium 100 mg 03/03/19 09:31 Colace PO BID PRN Constipation Heparin Sodium (Porcine) 5,000 unit 03/01/19 10:00 03/19/19 10:01 Heparin SUB-Q 5,000 unit Q12HR CHRISTAL Administration Sodium Chloride 1,000 mls @ 100 mls/hr 03/18/19 19:00 Nacl 0.9% 1000 Ml IV DIRECT CHRISTAL Insulin Human Regular 0 units 03/01/19 07:30 03/19/19 17:34 Humulin R SUB-Q Not Given ACHS [facility] Protocol Morphine Sulfate 2 mg 03/01/19 00:35 Morphine IV Q4H PRN Pain, Moderate (4-6) Ondansetron HCl 4 mg 03/01/19 00:35 03/13/19 05:53 Zofran IV 4 mg Q8H PRN Administration Nausea And Vomiting Sodium Chloride 10 ml 03/01/19 10:00 03/19/19 10:01 Sodium Chloride Flush Syringe 10 Ml IV 10 ml BID CHRISTAL Administration Sodium Chloride 10 ml 03/01/19 00:35 Sodium Chloride Flush Syringe 10 Ml IV PRN PRN LINE FLUSH Nutrition/Malnutrition Assess - Dietary Evaluation Nutrition/Malnutrition Findings: Nutrition Notes Start: 03/01/19 15:13 Freq: Status: Active Protocol: Document 03/18/19 10:32 RM (Rec: 03/18/19 10:37 RM [id number]) Nutrition Notes Initial or Follow up Reassessment Current Diagnosis Acute Kidney Injury,COPD, Diabetes Other Pertinent Diagnosis Rhabdomyolysis, (L) knee cellulitis, bilat BKA Current Diet Consistent CHO w/Glucerna BID Labs/Tests Reviewed Pertinent Medications Zofran Height 5 ft 6 in Weight 47.3 kg [place] Body Weight (kg) 59.09 BMI 16.8 Subjective/Other Information Pt stated that her appetite is good and that she eats all of her meals. Also stated that she drinks the Glucerna. Percent of energy/protein needs met: 100%/100% Burn Absent Trauma Absent #1 Nutrition Diagnosis Predicted suboptimal energy intake As Evidenced by Signs and Symptoms pt meeting 100% of calorie and protein needs Diagnosis Progress(for reassessment Resolved documentation) Is patient on ventilator? No Is Patient Ambulatory and/or Out of Bed No REE-([place]-St. Jeor-confined to bed) 1318.224 Kcal/Kg value to use for calculation 42 Approximate Energy Requirements Using 1987 kcal/Kg Calculation Used for Recommendations Kcal/kg Additional Notes Pro needs 1.25-1.5g/k-80g /day Fluid needs 1ml/kcal Nutrition Intervention Change Diet Order: Continue current diet order Add Supplement/Snack (indicate name/kcal D/C /protein ) Goal #1 Continue to meet least 75% energy and pro needs via PO intakes Anticipated Discharge Needs: Continue ONS 1-2 times daily if necessary Follow-Up By: 03/25/19 Additional Comments Follow for PO intakes
[2019-03-20] MEDS: HumuLIN R SUB-Q SCH ×2 (08:34→13:07)
--- NOTE | 2019-03-20 08:47 | Discharge Summary ---
Providers - Providers Date of Admission: 03/01/19 00:35 Date of discharge: 03/20/19 Attending physician: DENISE BLOOM 03/01/19 00:40 Consult to Wound/ET Nurse [CONS] Routine Reason For Exam: wound eval 03/01/19 01:54 Consult to Dietitian/Nutrition [CONS] Routine Physician Instructions: Reason For Exam: Reason for Consult: Poor oral intake 03/01/19 16:05 Physical Therapy Evaluation and Treat [CONS] Routine Comment: Reason For Exam: debility 03/03/19 08:53 Consult to Physician [CONS] Routine Comment: Consulting Provider: AJ MAGANA Physician Instructions: Reason For Exam: MRSE bacteremia 03/03/19 14:53 Consult to Wound/ET Nurse [CONS] Routine Reason For Exam: wound eval left leg ? abscess, please take cult 03/04/19 15:24 Consult to Case Management [CONS] Routine Services Needed at Discharge: Tool Keeper Notified:: copy left for cm Additional Physician Instructions: 03/04/19 16:51 Consult to Dietitian/Nutrition [CONS] Routine Physician Instructions: Reason For Exam: Reason for Consult: Malnutrition 03/06/19 09:26 Consult to Case Management [CONS] Stat Services Needed at Discharge: Other Notified:: second ride fare collector Additional Physician Instructions: [facility] ([facility] M [phone] O [phone] F [phone] OUTPATIENT PARENTERAL ANTIBIOTIC THERAPY ORDERS Diagnoses: Staph hominis bacteremia and MSSA wound infection, penicillin allergy Antimicrobial administration: vancomycin 750 mg IV q12 hour for 2 weeks until 03/17/2019. Remove midline after last dose unless otherwise instructed. Lines:midline Lab monitoring: CBC, AST, ALT, CRP, vancomycin trough once a week preferly on Sunday morning. Please fax results to [phone] Sury Phelps Date: 03/06/2019 03/06/19 10:14 Midline [Consult to PICC Line RN] [CONS] Urgent Reason For Exam: iv vanco x 2 weeks Type Line:: Midline [facility] Reason for admission: Acute kidney injury/sepsis Condition: Fair Pertinent studies: CT head without contrast extremely Lower extremity CT Hospital course: 53-year-old female patient with multiple medical problems like diabetes, Afib, hypertension, COPD and bilateral leg/feet necrotizing fascitis s/p bilateral BKA in Aug 2018 with severe bilateral lower extremity skin and soft tissue infection with concerns for necrotizing fasciitis transferred to [place]. Admitted on 02/28/2019 due to 24 hour-history of weakness and lightheadedness. She reports she developed a pressure wound to the left distal thigh which has been draining and it is painful: Admitted managed with IV antibiotics and wound care, had positive blood cultures , evaluated by ID antibiotics adjusted recommended antibiotics stopped it 03/17/2019 Patient received wound care. Patient had multiple social issues, case management assisted in DC planning Today patient is hemodynamically and clinically stable for discharge Blood cultures 03/01/2019 coag negative Staph Blood cultures 03/03/2019 pending Left wound culture growing Staph species --Febrile illness /persistent fevers: Possible drug fever ,Off antibiotics, monitor off antibiotics. --Sepsis with cellulitis; wound care, completed abx , monitor off antibiotics --Staph aureus, coag negative bacteremia: ID following, completed antibiotics till 03/17/2019 --ARF most likely ATN and vasomotor nephropathy, poa, resolved --Left knee pressure ulcer, stage 3: cont wound care, treated with abx --Bilateral below-knee amputation supportive care --Severe malnutrition, bmi 16.8: Nutrition supplements , supportive care, [place] Dried Beef following --DVT prophylaxis Heparin, renal dose, --discharge planning; patient is homeless, DC planning per case management Stable at discharge Disposition: DC/[facility] Time spent for discharge: 32 min Core Measure Documentation - Palliative Care Palliative Care/ Comfort Measures: Not Applicable - Core Measures Any of the following diagnoses?: none Exam - Constitutional Vitals: Temp Pulse Resp BP Pulse Ox 98.8 F 89 18 105/55 95 03/20/19 05:03 03/20/19 05:03 03/20/19 05:03 03/20/19 05:03 03/20/19 05:03 General appearance: Present: no acute distress, well-nourished - EENT Eyes: Present: PERRL, EOM intact - Neck Neck: Present: supple, normal ROM - Respiratory Respiratory effort: normal Respiratory: bilateral: diminished, negative: rales, rhonchi, wheezing - Cardiovascular Rhythm: regular Heart Sounds: Present: S1 & S2 - Extremities Extremities: abnormal (status post amputation) - Abdominal General gastrointestinal: Present: soft, non-tender, non-distended, normal bowel sounds - Integumentary Integumentary: Present: clear, warm - Musculoskeletal Musculoskeletal: strength equal bilaterally, generalized weakness - Psychiatric Psychiatric: appropriate mood/affect, cooperative - Neurologic Neurologic: moves all extremities Plan Activity: advance as tolerated, fall precautions Diet: regular Follow up with: KENYA CHURCH MD [Primary Care Provider] - 3-5 Days Prescriptions: HYDROcodone/APAP 5-325 [[place] 5-325 mg TAB] 1 each PO Q6H PRN #10 tablet PRN Reason: Pain, Moderate (4-6) ALBUTEROL Inhaler (OR & NICU) [ProAir HFA Inhaler] 2 puff IH QID PRN #1 inhalation PRN Reason: Shortness Of Breath
[2019-03-20] MEDS: HEPARIN SUB-Q SCH (09:36)
[2019-03-20] MEDS: SODIUM CHLORIDE FLUSH SYRINGE 10 ML IV SCH (09:37)
[2019-03-20] MEDS ORDERED: TRIPLE ANTIBIOTIC TP ONE (13:33)
[2019-03-20 13:50] VITALS: BP 111/61
== END 2019-03-20 14:50 | disposition home or self-care (01) | DRG 871 ==
LOC: ED 19:42 → 3A 03-01 00:35
PROVIDERS: ADMIT Internal Medicine; ATTEND Internal Medicine
PROC: 05HY33Z Insertion of Infusion Device into Upper Vein, Percutaneous Approach (ICD-10-PCS; principal; 2019-03-06)
DX: A41.9 Sepsis, unspecified organism (principal); L89.893 Pressure ulcer of other site, stage 3; E43 Unspecified severe protein-calorie malnutrition; N17.0 Acute kidney failure with tubular necrosis; M72.6 Necrotizing fasciitis; T67.0XXA Heatstroke and sunstroke, initial encounter; E87.0 Hyperosmolality and hypernatremia; M62.82 Rhabdomyolysis; L03.116 Cellulitis of left lower limb; Z68.1 Body mass index [BMI] 19.9 or less, adult; E11.9 Type 2 diabetes mellitus without complications; E86.0 Dehydration; R56.9 Unspecified convulsions; J45.909 Unspecified asthma, uncomplicated; J43.9 Emphysema, unspecified; I48.91 Unspecified atrial fibrillation; I10 Essential (primary) hypertension; X58.XXXA Exposure to other specified factors, initial encounter; T67.1XXA Heat syncope, initial encounter; E83.42 Hypomagnesemia; E83.39 Other disorders of phosphorus metabolism; Y99.8 Other external cause status; Y93.89 Activity, other specified; Y92.89 Other specified places as the place of occurrence of the external cause; Z59.0 Homelessness; Z89.512 Acquired absence of left leg below knee; Z89.511 Acquired absence of right leg below knee; Z91.011 Allergy to milk products; Z88.0 Allergy status to penicillin; Z91.013 Allergy to seafood; Z88.2 Allergy status to sulfonamides; Z91.018 Allergy to other foods; Z79.82 Long term (current) use of aspirin; Z86.73 Personal history of transient ischemic attack (TIA), and cerebral infarction without residual deficits
CPT/HCPCS: 36415; 70450; 80048; 80053; 80076; 80202; 81001; 82550; 82962; 83735; 83880; 84100; 84132; 84443; 84484; 85025; 85027; 86021; 86038; 86140; 86160; 87040; 87076; 87116; 87186; 93005; 93010; 93306; 96374; G0378; A6250; J1644; J1815; J3370; J7030; J7050; J7070; Q9967

== ENCOUNTER 2019-03-25 20:55 | Inpatient (IN) | payer OTHER ==
--- NOTE | 2019-03-25 21:45 | Event Note ---
ED Screening Note Date of service: 03/25/19 Time: 21:40 ED Screening Note: 53 y/o female comes in for couple days of weakness. +nausea. PMH DM, COPD Low blood pressure. Not on any medication for her dm. On symbicort for COPD. BS in triage was 184 This initial assessment/diagnostic orders/clinical plan/treatment(s) is/are subject to change based on patients health status, clinical progression and re- assessment by fellow clinical providers in the ED. Further treatment and workup at subsequent clinical providers discretion. Patient/guardian urged not to elope from the ED as their condition may be serious if not clinically assessed and managed. Initial orders include:
[2019-03-25 22:33] LABS: Hematocrit 40.7 % (30.3-42.9); Hemoglobin 13.5 gm/dl (10.1-14.3); Mean Corpuscular HGB Conc 33 % (30-34); Mean Corpuscular Volume 89 fl (79-97); Platelet Count 371 K/mm3 (140-440); Red Blood Count 4.56 M/mm3 (3.65-5.03)
[2019-03-25 22:37] LABS: Albumin 4.3 g/dL (3.9-5); Calcium 8.4 mg/dL (8.4-10.2)
[2019-03-25 23:12] LABS: Basophils % (Manual) 0 % (0.0-1.8); Eosinophils % (Manual) 0 % (0.0-4.3); Total Cells Counted 100
[2019-03-25 23:13] LABS: Poikilocytosis Few
[2019-03-25] MEDS ORDERED: NACL 0.9% 1000 ML 1,000 ML IV ONE ×2 (23:31)
--- NOTE | 2019-03-25 23:48 | Emergency Department Report ---
ED Dizziness HPI - General Chief Complaint: Weakness Stated Complaint: WEAKNESS Time Seen by Provider: 03/25/19 21:39 Source: patient, EMS Mode of arrival: Ambulatory Limitations: No Limitations - History of Present Illness Initial Comments: Mrs. Bajwa is a 53 yo female with hx of atrial fibrillation, bilateral BKA, PVD, asthma, heat stroke, COPD, diabetes mellitus who presents to the ER via EMS. She was found in a parking lot sleeping in a car. She stated the car was hot. She is currently weak and dizzy. Recently dc'd from hospital after treatment for sepsis, cellulitis, pressure ulcer and malnutrition According to case management documentation, patient has previous lived at [facility] and with boyfriend. Unfortunately, it appears family has abandoned patient. She is essentially homeless without social support. However, Mrs. Bajwa states that she does have a relative who will care for her. MD Complaint: dizziness, lightheadedness -: Gradual, days(s) Timing: gradual onset History of Same: Yes History of Trauma: No Severity: severe Improves With: nothing Worsens With: nothing Associated Symptoms: malaise - Related Data Previous Rx's Medication Instructions Recorded Last Taken Type Budesoni/Formotero 160-4.5(Nf) 2 puff IH BID #1 inha 11/13/17 07/31/18 Rx [Symbicort 160-4.5 (Nf)] Albuterol Sulfate [Ventolin Hfa] 1 puff IH Q4H PRN #1 hfa.aer.ad 12/13/17 Unknown Rx HYDROcodone/APAP 5-325 [[place] 1 each PO Q6H PRN #10 tablet 03/03/19 Unknown Rx 5-325 mg TAB] ALBUTEROL Inhaler (OR & NICU) 2 puff IH QID PRN #1 inhalation 03/20/19 Unknown Rx [ProAir HFA Inhaler] Allergies Allergy/AdvReac Type Severity Reaction Status Date / Time milk Allergy Swelling Verified 12/31/14 07:57 Penicillins Allergy Itching Verified 12/31/14 07:57 shellfish derived Allergy Shortness Verified 02/11/18 01:46 of Breath strawberry [[place]] Allergy Rash Verified 12/31/14 07:57 Sulfa (Sulfonamide Allergy Itching Verified 12/31/14 07:57 Antibiotics) ED Review of Systems ROS: Stated complaint: WEAKNESS Other details as noted in HPI Comment: All other systems reviewed and negative Constitutional: malaise Cardiovascular: denies: chest pain Gastrointestinal: denies: abdominal pain ED Past Medical Hx - Past Medical History Previous Medical History?: Yes Hx Hypertension: Yes Hx CVA: Yes (tia's) Hx Congestive Heart Failure: No Hx Diabetes: Yes Hx Deep Vein Thrombosis: No Hx Seizures: Yes Hx Psychiatric Treatment: Yes Hx Asthma: Yes Hx COPD: Yes Additional medical history: Anemia, A-fib, sinus problems, hypotension. bronchitis - Surgical History Hx Pacemaker: No Hx Internal Defibrillator: No Additional Surgical History: wisdom teeth removed - Social History Smoking Status: Never Smoker Substance Use Type: None - Medications Home Medications: Home Medications Medication Instructions Recorded Confirmed Last Taken Type Budesoni/Formotero 160-4.5(Nf) 2 puff IH BID #1 inha 11/13/17 03/01/19 07/31/18 Rx [Symbicort 160-4.5 (Nf)] Albuterol Sulfate [Ventolin Hfa] 1 puff IH Q4H PRN #1 hfa.aer.ad 12/13/17 03/01/19 Unknown Rx HYDROcodone/APAP 5-325 [[place] 1 each PO Q6H PRN #10 tablet 03/03/19 Unknown Rx 5-325 mg TAB] ALBUTEROL Inhaler (OR & NICU) 2 puff IH QID PRN #1 inhalation 03/20/19 Unknown Rx [ProAir HFA Inhaler] ED Physical Exam - General Limitations: No Limitations General appearance: alert, in no apparent distress - Head Head exam: Present: atraumatic, normocephalic - Eye Eye exam: Present: normal appearance - ENT ENT exam: Present: mucous membranes moist - Neck Neck exam: Present: normal inspection, full ROM - Respiratory Respiratory exam: Present: normal lung sounds bilaterally. Absent: respiratory distress, wheezes, rales, rhonchi - Cardiovascular Cardiovascular Exam: Present: regular rate, normal rhythm, normal heart sounds. Absent: systolic murmur, diastolic murmur, rubs, gallop - GI/Abdominal GI/Abdominal exam: Present: soft, normal bowel sounds. Absent: distended, tenderness, guarding, rebound - Extremities Exam Extremities exam: Present: other (bilateral amputation BKA) - Back Exam Back exam: Present: normal inspection - Neurological Exam Neurological exam: Present: alert, oriented X3 - Psychiatric Psychiatric exam: Present: normal affect, normal mood - Skin Skin exam: Present: warm, dry, intact, normal color. Absent: rash ED Course Vital Signs 03/26/19 00:05 Temperature 97.4 F L Pulse Rate 90 Respiratory 18 Rate Blood Pressure 114/77 [Right] O2 Sat by Pulse 99 Oximetry ED Medical Decision Making - Lab Data Result diagrams: 03/25/19 22:10 03/25/19 22:10 - EKG Data EKG shows normal: sinus rhythm, axis, intervals, QRS complexes, ST-T waves Rate: normal - Medical Decision Making DAVID with recent hospitalization, prerenal pattern: Given IVF, suspect volume contraction as well as nephrotoxicity from IV antibiotics Admitted to hospitalist service Critical care attestation.: If time is entered above; I have spent that time in minutes in the direct care of this critically ill patient, excluding procedure time. ED Disposition Clinical Impression: DAVID (acute kidney injury), Dehydration, Heat exhaustion Disposition: -09 OP ADMIT IP TO THIS HOSP Is pt being admited?: Yes Does the pt Need Aspirin: No Condition: Stable
[2019-03-26 01:40] LABS: Amorphous Crystals,Urine Few; Bilirubin,Urine NEG (Negative); Blood,Urine NEG (Negative); Color,Urine Yellow (Yellow); Hyaline Casts,Urine 5 /LPF; Mucus,Urine FEW /HPF; Urobilinogen,Urine < 2.0 mg/dL (<2.0)
[2019-03-26] MEDS ORDERED: TYLENOL PO PRN (02:46)
[2019-03-26] MEDS ORDERED: ZOFRAN IV PRN (02:46)
[2019-03-26] MEDS ORDERED: SODIUM CHLORIDE FLUSH SYRINGE 10 ML IV PRN (02:46)
--- NOTE | 2019-03-26 02:53 | History and Physical Report ---
History of Present Illness Date of examination: 03/26/19 History of present illness: 53-year-old woman with a history of diabetes, COPD, A. fib, hypertension, seizure, CVA, peripheral vascular disease comes emergency room for evaluation of generalized weakness, lightheadedness. She stated that she has been drinking less water, she lives her van Review of systems Constitutional: no weight loss, chills, fever Ears, eyes, nose, mouth and throat: no nasal congestion, no nasal discharge, no sinus pressure, no vision change, no red eye. Neck: No neck pain or rigidity. Cardiovascular: no palpitations,chest pain Respiratory: no cough, shortness of breath Gastrointestinal: no abdominal pain hematochezia Genitourinary : no frequency , no hematuria Musculoskeletal: no joint swelling or muscle ache Integumentary: no rash, no pruritis Neurological: no parathesias, no numbness, no focal weakness Endocrine: no cold or heat intolerance, no polyuria or polydipsia Hematologic/Lymphatic: no easy bruising, no easy bleeding, no gland swelling Allergic/Immunologic: no urticaria, no angioedema. PAST MEDICAL HISTORY:iabetes, COPD, A. fib, hypertension, seizure, CVA, PVD PAST SURGICAL HISTORY: None SOCIAL HISTORY: No alcohol, no drugs, tobacco FAMILY HISTORY: Hypertension Medications and Allergies Allergies Allergy/AdvReac Type Severity Reaction Status Date / Time milk Allergy Swelling Verified 12/31/14 07:57 Penicillins Allergy Itching Verified 12/31/14 07:57 shellfish derived Allergy Shortness Verified 02/11/18 01:46 of Breath strawberry [[place]] Allergy Rash Verified 12/31/14 07:57 Sulfa (Sulfonamide Allergy Itching Verified 12/31/14 07:57 Antibiotics) Home Medications Medication Instructions Recorded Confirmed Last Taken Type Budesoni/Formotero 160-4.5(Nf) 2 puff IH BID #1 inha 11/13/17 03/26/19 07/31/18 Rx [Symbicort 160-4.5 (Nf)] ALBUTEROL Inhaler (OR & NICU) 2 puff IH QID PRN #1 inhalation 03/20/19 03/26/19 Unknown Rx [ProAir HFA Inhaler] Exam - Physical Exam Narrative exam: General Apperance: The patient sitting in bed no acute distress HEENT: Normocephalic, atraumatic. Pupils equally round and reactive to light, extraocular movement intact, and no sclericterus or JVD or thyromegaly or no dule. Neck supple, no carotid bruit, mucous membranes moist, no exudate or erythema Heart: S1-S2, regular is rhythm Lungs: Clear to auscultation bilaterally, breathing comfortable Abdomen: Positive bowel sounds, soft, nontender, nondistended, no organomegaly Extremities: BiLateral BKA, Pressure ulcer on knee, no edema cyanosis clubbing Skin: no rash, nodule, warm and dry Neuro:CN 2 -12 intact, motor/sensory intact, speech is fluent - Constitutional Vitals: Temp Pulse Resp BP Pulse Ox 97.4 F L 90 18 114/77 99 03/26/19 00:05 03/26/19 00:05 03/26/19 00:05 03/26/19 00:05 03/26/19 00:05 Results - Labs CBC & Chem 7: 03/25/19 22:10 03/25/19 22:10 Labs: Abnormal lab results 03/25/19 03/25/19 03/25/19 Range/Units 21:56 22:10 22:10 Seg Neuts % (Manual) 76.0 H (40.0-70.0) % Lymphocytes % (Manual) 11.0 L (13.4-35.0) % Monocytes % (Manual) 13.0 H (0.0-7.3) % Lymphocytes # (Manual) 0.8 L (1.2-5.4) K/mm3 Monocytes # (Manual) 0.9 H (0.0-0.8) K/mm3 Carbon Dioxide 17 L (22-30) mmol/L BUN 90 H (7-17) mg/dL Creatinine 2.4 H (0.7-1.2) mg/dL Glucose 176 H (65-100) mg/dL POC Glucose 184 H (70-105) Alkaline Phosphatase 136 H (35-129) units/L Total Protein 9.8 H (6.3-8.2) g/dL Urine WBC (Auto) (0.0-6.0) /HPF 03/26/19 Range/Units 01:14 Seg Neuts % (Manual) (40.0-70.0) % Lymphocytes % (Manual) (13.4-35.0) % Monocytes % (Manual) (0.0-7.3) % Lymphocytes # (Manual) (1.2-5.4) K/mm3 Monocytes # (Manual) (0.0-0.8) K/mm3 Carbon Dioxide (22-30) mmol/L BUN (7-17) mg/dL Creatinine (0.7-1.2) mg/dL Glucose (65-100) mg/dL POC Glucose (70-105) Alkaline Phosphatase (35-129) units/L Total Protein (6.3-8.2) g/dL Urine WBC (Auto) 13.0 H (0.0-6.0) /HPF Assessment and Plan Assessment Renal failure, acute Diabetes Hypertension COPD Seizure Pressure ulcer on knee improving Plan Start IV fluid, monitor renal function Check fingersticks initiate insulin sliding scale Continue appropriate outpatient medications DVT prophylaxis
[2019-03-26] MEDS: NACL 0.9% 1000 ML 1,000 ML IV SCH ×3 (05:35→21:22)
[2019-03-26 06:50] LABS: Monocytes # (Auto) 1.2 K/mm3 (0.0-0.8)
[2019-03-26] MEDS: LOVENOX SUB-Q SCH (09:56)
[2019-03-26] MEDS: SODIUM CHLORIDE FLUSH SYRINGE 10 ML IV SCH ×2 (09:57→21:22)
[2019-03-26 12:53] LABS: BUN/Creatinine Ratio 48; Blood Urea Nitrogen 48 mg/dL (7-17); Calcium 7.4 mg/dL (8.4-10.2)
[2019-03-26 12:54] LABS: Hemolysis Index 0
--- NOTE | 2019-03-26 13:41 | Progress Note ---
Assessment and Plan Assessment and plan: Acute renal failure. Etiology secondary to vasomotor nephropathy. Patient's creatinine has improved with IV fluid hydration. Follow-up BMP in a.m. Diabetes mellitus type II. Continue Accu-Cheks and sliding scale insulin. Hypertension. Resume antihypertensive medications. Seizure disorder. Continue AEDs. COPD. Compensated. History Interval history: 53-year-old woman with a history of diabetes, COPD, A. fib, hypertension, seizure, CVA, peripheral vascular disease comes emergency room for evaluation of generalized weakness, lightheadedness. She stated that she has been drinking less water No new issues overnight. Hospitalist Physical - Constitutional Vitals: Temp Pulse Resp BP Pulse Ox 97.5 F L 81 18 84/49 100 03/26/19 08:34 03/26/19 09:13 03/26/19 08:34 03/26/19 08:34 03/26/19 07:41 General appearance: Present: no acute distress, well-nourished - EENT Eyes: Present: PERRL, EOM intact ENT: hearing intact, clear oral mucosa, dentition normal - Neck Neck: Present: supple, normal ROM - Respiratory Respiratory effort: normal Respiratory: bilateral: CTA - Cardiovascular Rhythm: regular Heart Sounds: Present: S1 & S2. Absent: gallop, rub - Extremities Extremities: no ischemia, No edema, Full ROM - Abdominal General gastrointestinal: soft, non-tender, non-distended, normal bowel sounds - Integumentary Integumentary: Present: clear, warm, dry - Neurologic Neurologic: CNII-XII intact, moves all extremities Results - Labs CBC & Chem 7: 03/25/19 22:10 03/26/19 10:32 Labs: Laboratory Last Values WBC 6.9 K/mm3 (4.5-11.0) 03/25/19 22:10 RBC 4.56 M/mm3 (3.65-5.03) 03/25/19 22:10 Hgb 13.5 gm/dl (10.1-14.3) 03/25/19 22:10 Hct 40.7 % (30.3-42.9) 03/25/19 22:10 MCV 89 fl (79-97) 03/25/19 22:10 MCH 30 pg (28-32) 03/25/19 22:10 MCHC 33 % (30-34) 03/25/19 22:10 RDW 15.0 % (13.2-15.2) 03/25/19 22:10 Plt Count 371 K/mm3 (140-440) 03/25/19 22:10 Eos % (Auto) 0.0 % (0.0-4.3) 03/25/19 22:10 [place] # 1.2 K/mm3 (0.0-0.8) H 03/25/19 22:10 Eos # 0.0 K/mm3 (0.0-0.4) 03/25/19 22:10 Baso # 0.0 K/mm3 (0.0-0.1) 03/25/19 22:10 Add Manual Diff Complete 03/25/19 22:10 Total Counted 100 03/25/19 22:10 Seg Neutrophils % 69.2 % (40.0-70.0) 03/25/19 22:10 Seg Neuts % (Manual) 76.0 % (40.0-70.0) H 03/25/19 22:10 0 % 03/25/19 22:10 11.0 % (13.4-35.0) L 03/25/19 22:10 Reactive Lymphs % (Man) 0 % 03/25/19 22:10 13.0 % (0.0-7.3) H 03/25/19 22:10 0 % (0.0-4.3) 03/25/19 22:10 0 % (0.0-1.8) 03/25/19 22:10 0 % 03/25/19 22:10 0 % 03/25/19 22:10 0 % 03/25/19 22:10 0 % 03/25/19 22:10 Nucleated RBC % Not Reportable 03/25/19 22:10 Seg Neutrophils # 4.8 K/mm3 (1.8-7.7) 03/25/19 22:10 Seg Neutrophils # Man 5.2 K/mm3 (1.8-7.7) 03/25/19 22:10 Band Neutrophils # 0.0 K/mm3 03/25/19 22:10 0.8 K/mm3 (1.2-5.4) L 03/25/19 22:10 Abs React Lymphs (Man) 0.0 K/mm3 03/25/19 22:10 0.9 K/mm3 (0.0-0.8) H 03/25/19 22:10 0.0 K/mm3 (0.0-0.4) 03/25/19 22:10 0.0 K/mm3 (0.0-0.1) 03/25/19 22:10 0.0 K/mm3 03/25/19 22:10 0.0 K/mm3 03/25/19 22:10 0.0 K/mm3 03/25/19 22:10 Blast Cells # 0.0 K/mm3 03/25/19 22:10 WBC Morphology Not Reportable 03/25/19 22:10 Hypersegmented Neuts Not Reportable 03/25/19 22:10 Hyposegmented Neuts Not Reportable 03/25/19 22:10 Hypogranular Neuts Not Reportable 03/25/19 22:10 Not Reportable 03/25/19 22:10 Not Reportable 03/25/19 22:10 Not Reportable 03/25/19 22:10 Not Reportable 03/25/19 22:10 Not Reportable 03/25/19 22:10 Not Reportable 03/25/19 22:10 Appears normal 03/25/19 22:10 Not Reportable 03/25/19 22:10 Plt Clumps, EDTA Not Reportable 03/25/19 22:10 Not Reportable 03/25/19 22:10 Not Reportable 03/25/19 22:10 Not Reportable 03/25/19 22:10 Plt Morphology Comment Not Reportable 03/25/19 22:10 RBC Morphology Not Reportable 03/25/19 22:10 Dimorphic RBCs Not Reportable 03/25/19 22:10 Not Reportable 03/25/19 22:10 Not Reportable 03/25/19 22:10 Few 03/25/19 22:10 Not Reportable 03/25/19 22:10 Not Reportable 03/25/19 22:10 Not Reportable 03/25/19 22:10 Not Reportable 03/25/19 22:10 Not Reportable 03/25/19 22:10 Not Reportable 03/25/19 22:10 Not Reportable 03/25/19 22:10 Not Reportable 03/25/19 22:10 Not Reportable 03/25/19 22:10 Not Reportable 03/25/19 22:10 Not Reportable 03/25/19 22:10 Not Reportable 03/25/19 22:10 Not Reportable 03/25/19 22:10 Not Reportable 03/25/19 22:10 Not Reportable 03/25/19 22:10 Rare 03/25/19 22:10 Acanthocytes (Spur) Not Reportable 03/25/19 22:10 Rouleaux Not Reportable 03/25/19 22:10 Not Reportable 03/25/19 22:10 Not Reportable 03/25/19 22:10 Not Reportable 03/25/19 22:10 Not Reportable 03/25/19 22:10 Hem Pathologist Commnt No 03/25/19 22:10 Sodium 149 mmol/L (137-145) H D 03/26/19 10:32 Potassium 3.7 mmol/L (3.6-5.0) 03/26/19 10:32 Chloride 114.9 mmol/L (98-107) H 03/26/19 10:32 Carbon Dioxide 24 mmol/L (22-30) D 03/26/19 10:32 14 mmol/L 03/26/19 10:32 BUN 48 mg/dL (7-17) H 03/26/19 10:32 1.0 mg/dL (0.7-1.2) D 03/26/19 10:32 Estimated GFR > 60 ml/min 03/26/19 10:32 48 % 03/26/19 10:32 Glucose 103 mg/dL (65-100) H 03/26/19 10:32 POC Glucose 104 (70-105) 03/26/19 11:46 Calcium 7.4 mg/dL (8.4-10.2) L 03/26/19 10:32 0.60 mg/dL (0.1-1.2) 03/25/19 22:10 AST 20 units/L (5-40) 03/25/19 22:10 ALT 38 units/L (7-56) 03/25/19 22:10 136 units/L (35-129) H 03/25/19 22:10 99 units/L (30-135) 03/25/19 22:10 9.8 g/dL (6.3-8.2) H 03/25/19 22:10 4.3 g/dL (3.9-5) 03/25/19 22:10 0.8 % 03/25/19 22:10 Yellow (Yellow) 03/26/19 01:14 Slightly-cloudy (Clear) 03/26/19 01:14 5.0 (5.0-7.0) 03/26/19 01:14 Ur Specific [place] 1.018 (1.003-1.030) 03/26/19 01:14 100 mg/dl mg/dL (Negative) 03/26/19 01:14 Neg mg/dL (Negative) 03/26/19 01:14 Tr mg/dL (Negative) 03/26/19 01:14 Neg (Negative) 03/26/19 01:14 Neg (Negative) 03/26/19 01:14 Neg (Negative) 03/26/19 01:14 < 2.0 mg/dL (<2.0) 03/26/19 01:14 Ur Leukocyte Esterase Sm (Negative) 03/26/19 01:14 13.0 /HPF (0.0-6.0) H 03/26/19 01:14 4.0 /HPF (0.0-6.0) 03/26/19 01:14 Amorphous Crystals Few 03/26/19 01:14 Hyaline Casts 5 /LPF 03/26/19 01:14 Few /HPF 03/26/19 01:14 Active Medications - Current Medications Current Medications: Generic Name Dose Route Start Last Admin Trade Name Freq PRN Reason Stop Dose Admin Acetaminophen 650 mg 03/26/19 02:46 Tylenol PO Q4H PRN Pain MILD(1-3)/Fever >100.5/THOMAS Enoxaparin Sodium 30 mg 03/26/19 10:00 03/26/19 09:56 Lovenox SUB-Q 30 mg QDAY CHRISTAL Administration Sodium Chloride 1,000 mls @ 150 mls/hr 03/26/19 03:00 03/26/19 05:35 Nacl 0.9% 1000 Ml IV 150 mls/hr DIRECT CHRISTAL Administration Ondansetron HCl 4 mg 03/26/19 02:46 Zofran IV Q8H PRN Nausea And Vomiting Sodium Chloride 10 ml 03/26/19 10:00 03/26/19 09:57 Sodium Chloride Flush Syringe 10 Ml IV 10 ml BID CHRISTAL Administration Sodium Chloride 10 ml 03/26/19 02:46 Sodium Chloride Flush Syringe 10 Ml IV PRN PRN LINE FLUSH
--- NOTE | 2019-03-27 02:36 | Ultrasound Report ---
ULTRASOUND RENAL INDICATION: ARF. COMPARISON: No relevant prior imaging study available. FINDINGS: RIGHT KIDNEY: Size: 11.6 cm. Echogenicity: Normal. Cortical thickness: Normal. Hydronephrosis: None. Cyst or mass: None. Stones: None. LEFT KIDNEY: Size: 11.8 cm. Echogenicity: Normal. Cortical thickness: Normal. Hydronephrosis: None. Cyst or mass: None. Stones: None. Urinary Bladder: No significant abnormality. Free Fluid: None. Additional Findings: None. IMPRESSION 1. No acute sonographic abnormality of the kidneys. Signer Name: Trung Barnett MD Signed: 03/27/2019 2:32 AM Workstation Name: [id number]
[2019-03-27] MEDS: NACL 0.9% 1000 ML 1,000 ML IV SCH (04:16)
[2019-03-27 05:34] LABS: Basophils % (Auto) 0.4 % (0.0-1.8); Eosinophils % (Auto) 0.6 % (0.0-4.3); Hemoglobin 9.6 gm/dl (10.1-14.3); Lymphocytes # (Auto) 0.3 K/mm3 (1.2-5.4); Lymphocytes % (Auto) 11.1 % (13.4-35.0); Mean Corpuscular HGB Conc 33 % (30-34); Mean Corpuscular Volume 90 fl (79-97); Monocytes # (Auto) 0.4 K/mm3 (0.0-0.8); Monocytes % (Auto) 14.4 % (0.0-7.3); Platelet Count 204 K/mm3 (140-440); Red Blood Count 3.22 M/mm3 (3.65-5.03); Red Cell Distribution Width 14.7 % (13.2-15.2)
[2019-03-27 05:54] LABS: BUN/Creatinine Ratio 33; Blood Urea Nitrogen 20 mg/dL (7-17); Calcium 7.5 mg/dL (8.4-10.2); Hemolysis Index 9
[2019-03-27 08:54] VITALS: BP 85/48
--- NOTE | 2019-03-27 09:22 | Discharge Summary ---
Providers - Providers Date of Admission: 03/26/19 02:54 Date of discharge: 03/27/19 Attending physician: JASON ROSALES Primary care physician: MARIO VASQUEZ Hospitalization Reason for admission: DAVID, ARF Condition: Stable Hospital course: 53-year-old woman with a history of diabetes, COPD, A. fib, hypertension, seizure, CVA, peripheral vascular disease comes emergency room for evaluation of generalized weakness, lightheadedness. She stated that she has been drinking less water, she lives in her van. The patient was admitted with diagnoses of acute renal failure secondary to vasomotor nephropathy. On admission, patient's creatinine was noted to be 2.4 which quickly resolved to normal range of 0.6 with IV fluid hydration. Renal ultrasound found to be negative. The patient's other medical problems including diabetes mellitus type 2, COPD, seizure disorder and hypertension remained stable. Patient is felt to receive maximal hospital benefit and will be discharged home. Dedicated discharge time 32 minutes. Disposition: DC-30 STILL A PATIENT Time spent for discharge: 32 - Discharge Diagnoses (1) DAVID (acute kidney injury) Status: Acute (2) Dehydration Status: Acute (3) PVD (peripheral vascular disease) Status: Acute (4) Severe protein-calorie malnutrition Status: Acute Core Measure Documentation - Palliative Care Palliative Care/ Comfort Measures: Not Applicable - Core Measures Any of the following diagnoses?: none Exam - Constitutional Vitals: Temp Pulse Resp BP Pulse Ox 99.2 F 80 18 85/48 98 03/27/19 07:56 03/27/19 07:56 03/27/19 07:56 03/27/19 07:56 03/27/19 07:56 General appearance: Present: no acute distress, well-nourished - EENT Eyes: Present: PERRL ENT: hearing intact, clear oral mucosa - Neck Neck: Present: supple, normal ROM - Respiratory Respiratory effort: normal Respiratory: bilateral: CTA - Cardiovascular Heart Sounds: Present: S1 & S2. Absent: rub, click - Extremities Extremities: pulses symmetrical, No edema Peripheral Pulses: within normal limits - Abdominal General gastrointestinal: Present: soft, non-tender, non-distended, normal bowel sounds Female genitourinary: Present: normal - Integumentary Integumentary: Present: clear, warm, dry - Musculoskeletal Musculoskeletal: gait normal, strength equal bilaterally - Psychiatric Psychiatric: appropriate mood/affect, intact judgment & insight - Neurologic Neurologic: CNII-XII intact, moves all extremities Plan Activity: advance as tolerated Weight Bearing Status: Weight Bear as Tolerated Diet: diabetic Follow up with: MARIO VASQUEZ MD [Primary Care Provider] - 7 Days Prescriptions: ALBUTEROL Inhaler (OR & NICU) [ProAir HFA Inhaler] 2 puff IH QID PRN #1 inhalation PRN Reason: Shortness Of Breath
[2019-03-27] MEDS: LOVENOX SUB-Q SCH (10:21)
[2019-03-27] MEDS: SODIUM CHLORIDE FLUSH SYRINGE 10 ML IV SCH (10:21)
== END 2019-03-27 11:45 | disposition home or self-care (01) | DRG 682 ==
LOC: ED 20:55 → 4A 03-26 02:54
PROVIDERS: ADMIT Internal Medicine; ATTEND Hospitalist
DX: N17.0 Acute kidney failure with tubular necrosis (principal); E43 Unspecified severe protein-calorie malnutrition; Z68.1 Body mass index [BMI] 19.9 or less, adult; E86.0 Dehydration; I48.91 Unspecified atrial fibrillation; J44.9 Chronic obstructive pulmonary disease, unspecified; I10 Essential (primary) hypertension; L89.899 Pressure ulcer of other site, unspecified stage; E11.51 Type 2 diabetes mellitus with diabetic peripheral angiopathy without gangrene; G40.909 Epilepsy, unspecified, not intractable, without status epilepticus; Z89.512 Acquired absence of left leg below knee; Z89.511 Acquired absence of right leg below knee; Z88.2 Allergy status to sulfonamides; Z91.011 Allergy to milk products; Z88.0 Allergy status to penicillin; Z91.013 Allergy to seafood; Z86.73 Personal history of transient ischemic attack (TIA), and cerebral infarction without residual deficits; X30.XXXA Exposure to excessive natural heat, initial encounter; Y93.89 Activity, other specified; Y92.89 Other specified places as the place of occurrence of the external cause; Y99.8 Other external cause status
CPT/HCPCS: 36415; 76770; 80048; 80053; 81001; 82550; 82962; 85007; 85025; 87086; 93005; 93010; 94760; G0378; J1650; J7030